=== PATIENT | male | born 1980 | race Caucasian/White ===

== ENCOUNTER → 2017-07-19 11:56 | Outpatient (CLI) | payer MEDICARE, OTHER, SELFPAY ==
[2017-07-19 13:39] LABS: Basophils # 0.1 K/mm3 (0-0.2); Basophils % 1.1 % (0.1-2.0); Eosinophils # 0.2 K/mm3 (0.0-0.4); Eosinophils % 3.4 % (0.1-12.0); Hemoglobin 14.1 g/dL (14.1-18.0); Lymphocytes # 1.6 K/mm3 (0.7-4.5); Lymphocytes % 33.5 K/mm3 (10-50); Mean Corpuscular HGB Conc 33.6 g/dL (31.8-35.4); Mean Corpuscular Hemoglobin 33.3 pg (27.0-31.2); Mean Platelet Volume 10.2 fl (7.4-10.4); Monocytes # 0.3 K/mm3 (0.1-1.0); Monocytes % 5.2 % (1.7-9.3); Neutrophils # 2.8 K/mm3 (1.8-7.8); Neutrophils % 56.8 % (37.0-80.0); Platelet Count 132 K/mm3 (142-424); Red Blood Count 4.24 M/mm3 (4.60-6.20); Red Cell Distribution Width 13.1 % (11.5-17.5); White Blood Count 4.8 K/mm3 (4.8-10.8)
[2017-07-19 14:38] LABS: Alanine Aminotransferase 26 U/L (12-78); Albumin Level 4.1 gm/dL (3.4-5.0); Albumin/Globulin Ratio 1.3 (1.1-1.8); Alkaline Phosphatase 119 U/L (46-116); Anion Gap 12.6 mEq/L (5-15); Aspartate Amino Transferase 28 U/L (15-37); Bilirubin,Total 0.3 mg/dL (0.2-1.0); Blood Urea Nitrogen 16 mg/dL (7-18); Calcium 9.3 mg/dL (8.5-10.1); Carbamazepine (Tegretol) 8.8 ug/ml (4.0-12.0); Carbon Dioxide 28 mmol/L (21.0-32.0); Chloride 104 mmol/L (98-107); Creatinine,Serum 0.81 mg/dL (0.70-1.30); Estimated Glomerular Filt Rate 107 ml/min (>60); GFR (African American) 129 ML/MIN (>60); Globulin 3.2 gm/dl (1.3-3.2); Glucose 84 mg/dL (74-106); Potassium 4.6 mmoL/L (3.5-5.1); Sodium 140 mmol/L (136-145); Total Protein,Serum 7.3 gm/dL (6.4-8.2)
[2017-07-19 14:45] LABS: Erythrocyte Sedimentation Rate 20 mm/hr (0-15)
[2017-07-22 21:11] LABS: Folate 4.5 ng/mL (>3.0); Vitamin B12 412 pg/mL (232-1245)
== END ==
PROVIDERS: Visit Provider Emergency Medicine
DX: R51 Headache (principal); R71.8 Other abnormality of red blood cells
CPT/HCPCS: 80053; 80156; 82607; 82746; 85025; 85651

== ENCOUNTER → 2017-10-05 09:59 | Outpatient (CLI) | payer MEDICARE, OTHER, SELFPAY ==
--- NOTE | 2017-10-05 10:02 | MR_ITS ---
MR head/brain wo/w con HISTORY: Severe headache with dizziness and history of seizures ITS.REASON: seizures, prior craniotomy ORDERING PHYSICIAN: Suzi Dockery MD PATIENT AGE: 37 years Comparison: 12/01/2013 TECHNIQUE: Standard multiplanar multiecho sequences are performed without and with gadolinium enhancement FINDINGS: No midline shift, mass effect, intracranial hemorrhage, or hydrocephalus. There has been a prior left frontal craniotomy with encephalomalacia change in the left frontal lobe some heterogeneous T1 and increased T2 signal in this area. No enhancement however is evident. There is some increased FLAIR signal in this region consistent with gliotic change. The remaining brain has an unremarkable appearance. The cerebellopontine angle, cerebellum, and brainstem are unremarkable. No abnormal enhancement. The hippocampal gyri are unremarkable in the temporal horns are symmetric. Unremarkable appearing pituitary gland and optic chiasm. No cerebellar ectopia. There is moderate mucosal thickening of the right maxillary sinus and minimal mucosal thickening of left maxillary sinus. No mastoid effusion IMPRESSION: 1. Encephalomalacia change in the left frontal lobe status post prior craniotomy at this area. No abnormal enhancement. 2. Otherwise negative MRI of the brain without and with contrast 3. Paranasal sinus disease
== END ==
PROVIDERS: Family Provider Emergency Medicine; PCP Emergency Medicine; Visit Provider Specialist
DX: R51 Headache (principal); R56.9 Unspecified convulsions; R42 Dizziness and giddiness; R63.6 Underweight; F41.9 Anxiety disorder, unspecified
CPT/HCPCS: 70553; A9576

== ENCOUNTER → 2017-10-11 08:53 | Outpatient (POV) | payer MEDICARE, OTHER, SELFPAY | PROVIDERS: Family Provider Emergency Medicine; PCP Emergency Medicine; Visit Provider Specialist | DX: R56.9 Unspecified convulsions (principal); R51 Headache; R42 Dizziness and giddiness; R63.6 Underweight; F41.9 Anxiety disorder, unspecified | CPT/HCPCS: 95819 ==

== ENCOUNTER → 2018-10-04 17:16 | Outpatient (CLI) | payer MEDICARE, OTHER, SELFPAY ==
[2018-10-04 17:57] LABS: Basophils # 0.1 K/mm3 (0-0.2); Eosinophils # 0.2 K/mm3 (0.0-0.4); Eosinophils % 2.9 % (0.1-12.0); Hematocrit 40.9 % (42.0-52.0); Hemoglobin 13.6 g/dL (14.1-18.0); Lymphocytes # 2.7 K/mm3 (0.7-4.5); Lymphocytes % 41.1 % (10-50); Mean Corpuscular HGB Conc 33.3 g/dL (31.8-35.4); Mean Corpuscular Hemoglobin 33.3 pg (27.0-31.2); Mean Platelet Volume 10.3 fl (7.4-10.4); Monocytes # 0.3 K/mm3 (0.1-1.0); Monocytes % 4.4 % (1.7-9.3); Neutrophils # 3.3 K/mm3 (1.8-7.8); Neutrophils % 50.6 % (37.0-80.0); Platelet Count 156 K/mm3 (142-424); Red Blood Count 4.09 M/mm3 (4.60-6.20); Red Cell Distribution Width 13.5 % (11.5-17.5); White Blood Count 6.5 K/mm3 (4.8-10.8)
[2018-10-04 18:05] LABS: Alanine Aminotransferase 25 U/L (12-78); Albumin/Globulin Ratio 1.2 (1.1-1.8); Alkaline Phosphatase 106 U/L (46-116); Anion Gap 13.4 mEq/L (5-15); Aspartate Amino Transferase 15 U/L (15-37); Bilirubin,Total 0.2 mg/dL (0.2-1.0); Blood Urea Nitrogen 15 mg/dL (7-18); Carbon Dioxide 28 mmol/L (21.0-32.0); Chloride 104 mmol/L (98-107); Creatinine,Serum 1.06 mg/dL (0.70-1.30); Estimated Glomerular Filt Rate 77 ml/min (>60); GFR (African American) 94 ML/MIN (>60); Globulin 3.3 gm/dl (1.3-3.2); Glucose 92 mg/dL (74-106); Potassium 4.4 mmoL/L (3.5-5.1); Sodium 141 mmol/L (136-145); Total Protein,Serum 7.3 gm/dL (6.4-8.2)
== END ==
PROVIDERS: Visit Provider Emergency Medicine
DX: G40.909 Epilepsy, unspecified, not intractable, without status epilepticus (principal)
CPT/HCPCS: 80053; 85025

== ENCOUNTER → 2019-02-02 13:12 | Outpatient (CLI) | payer MEDICARE, OTHER, SELFPAY ==
--- NOTE | 2019-02-02 13:16 | XR_ITS ---
PROCEDURE: XR LUMBAR SPINE MIN 4V CLINICAL INDICATION: back pain COMPARISON: No exams were available for comparison FINDINGS: There is normal alignment. No fracture or dislocation. No lytic or blastic change. There is mild spurring along the superior endplate of L4. Minimal facet sclerosis noted at L5-S1. The SI joints have an unremarkable appearance. IMPRESSION: Mild degenerative change, no acute finding Dictated by: Sage Balderas MD 02/02/2019 14:31 Electronically signed by Sage Balderas MD in [place] 02/02/2019 14:31
== END ==
PROVIDERS: PCP Emergency Medicine; Visit Provider Emergency Medicine
DX: M54.9 Dorsalgia, unspecified (principal)
CPT/HCPCS: 72110

== ENCOUNTER → 2019-02-15 07:49 | Outpatient (CLI) | payer MEDICARE, OTHER, SELFPAY ==
--- NOTE | 2019-02-15 07:50 | MR_ITS ---
PROCEDURE: MR LUMBAR SPINE WO CON CLINICAL INDICATION: back pain Low back pain, low back and left leg pain with numbness and tingling the COMPARISON: BRAINWW MR head/brain wo/w con from 10/05/2017 XR LUMBAR SPINE MIN 4V from 02/02/2019 TECHNIQUE: Standard multiplanar multiecho sequences are performed without contrast. 3-D MIP and myelographic images are also rendered and reviewed FINDINGS: There is normal alignment. The spinal cord ends at the L1 level. The disc spaces at L1-L2 and L2-L3 are unremarkable. There is mild facet and ligamentum hypertrophy at these levels without significant foraminal narrowing. L3-L4: There is mild degenerative disc disease with disc desiccation and minimal bulging disc along with facet and ligamentum hypertrophy with mild bilateral foraminal narrowing. L4-5: Mild concentric bulging disc. There is focal increased T2 signal involving the right foraminal aspect of the disc suggesting a small annular tear with focal disc protrusion in the right foraminal region. L5-S1: Mild concentric bulging disc slightly eccentric toward the left. There is facet and ligamentum hypertrophy with mild right and moderate left-sided foraminal narrowing. IMPRESSION: 1. L3-L4: There is mild degenerative disc disease with disc desiccation and minimal bulging disc along with facet and ligamentum hypertrophy with mild bilateral foraminal narrowing. 2. L4-5: Mild concentric bulging disc. There is focal increased T2 signal involving the right foraminal aspect of the disc suggesting a small annular tear with focal disc protrusion in the right foraminal region. 3. L5-S1: Mild concentric bulging disc slightly eccentric toward the left. There is facet and ligamentum hypertrophy with mild right and moderate left-sided foraminal narrowing. 4. No extruded herniated disc or canal stenosis Dictated by: Sage Balderas MD 02/16/2019 06:12 Electronically signed by Sage Balderas MD in [place] 02/16/2019 06:12
== END ==
PROVIDERS: PCP Emergency Medicine; Visit Provider Emergency Medicine
DX: M54.5 Low back pain (principal)
CPT/HCPCS: 72148; 76376

== ENCOUNTER 2019-02-15 09:30 | Outpatient (RCR) | payer MEDICARE, OTHER, SELFPAY ==
--- NOTE | 2019-02-09 13:50 | HMH.PTOPEV ---
PT Outpatient Evaluation Rehab PT Outpatient Evaluation Start: 02/09/19 11:23 Freq: Status: Active Protocol: Document 02/09/19 11:57 JOCELYN (Rec: 02/09/19 12:08 JOCELYN [id number]) Electronically Signed By Ishmael Carrizales, PT 02/09/19 11:57 Outpatient Therapy Subjective History Subjective History Patient is a 38 year old male presenting to outpatient PT with reports of LBP with LLE radicular symptoms starting approximately 2 months ago. Pt reports that he was bending over picking up a jug and felt a sharp pain in the low back that radiated down the back of his leg to the heel. Pt reports previous occurrence of similar symptoms approx 10 years ago. Comorbidities include hx of seizures, brain sx 2012 and hx of drug abuse. He is currently receiving treatment a [facility]. Chief Complaint Pain,Spasms,Stiff Symptom Type Ache,Sharp,Numbness,Tingling Symptoms Relieved By Activity Symptoms Aggravated By Sitting,Bending/Stooping, Lifting Prior Functional Limitations None Current Functional Limitations Lifting,Housework,Sitting, Recreation Activity,Bending/ Stooping Symptom Description Constant but Variable Level of pain today (0-10) 6 Pain scale - at its best (0-10) 6 Pain scale - at its worst (0-10) 9 Lumbopelvic Eval Posture Thoracic Spine Posture Standing Position Neutral Lumbar Spine Posture Standing Position Decreased Lordosis Assistive device Assistive Devices None / NA Gait Observation General Gait Pattern Observation Decrease Weight Bear (L) Palapation tenderness left Lumbar/Sacral Palpation Findings Tenderness Accessory Movement L4 left L5 left S1 left Range of Motion Lumbar Spine Active Flexion Range of 36 Motion (degrees) Lumbar Spine Active Extension Range of 11 Motion (degrees) Left Lumbar Spine Lateral Flexion Active 22 Range of Motion (degrees) Right Lumbar Spine Lateral Flexion 26 Active Range of Motion (degrees) Lumbar Spine ROM Limitations Soft Tissue Tightness,Bony Restriction Manual Muscle Test Bilateral Knee Extension Strength Grade 5 Normal Knee Flexion Strength G
== END 2019-02-15 09:35 | disposition home or self-care (01) ==
LOC: PT 09:30
PROVIDERS: PCP Emergency Medicine; Visit Provider Emergency Medicine
DX: M54.5 Low back pain (principal)
CPT/HCPCS: 97010; 97014; 97035; 97110; 97163; G0283

== ENCOUNTER → 2019-03-13 09:54 | Outpatient (POV) | payer MEDICARE, OTHER, SELFPAY ==
[2019-03-13 10:24] VITALS: BP 139/82; PULSE 88; RESP 18; O2SAT 99; BMI 17.9
--- NOTE | 2019-03-13 10:59 | HMH.PMCON ---
Assessment and Plan (1) Degenerative disc disease Current visit: Yes Status: Chronic Qualifiers: Spinal region: lumbar Qualified Code(s): M51.36 - Other intervertebral disc degeneration, lumbar region Category: Medical (2) Lumbar radiculopathy Current visit: Yes Status: Chronic Category: Medical Code(s): M54.16 - Radiculopathy, lumbar region - Assessment and plan all Dx Assessment and Plan for all problems:: We will set the patient up for an L4-L5 lumbar epidural steroid injection. Patient's tried and failed other modalities of treatment including physical therapy. He is continuing a home stretching program. He is not on any anticoagulation therapy. Patient is not a narcotic candidate given his history of abuse and his high ORT score. He is been instructed to call the office if he has any issues prior to his next appointment. Dr. Brar has reviewed this note and agrees with this plan of care. This note was dictated using voice recognition software and may contain errors or omissions HPI - Data of Consult Consult date: 03/13/19 Requesting Physician: Suly Dubon APRN Primary Care Provider: Demetris Taylor MD - Consult Narrative Reason for consult: Back pain History of present illness: Mr. Ojeda is a 38 year old male who presents today for consultation in regards to his low back pain. Patient has had back pain for several years. Patient states that he has done some physical therapy. He rates his pain a 5 out of 10. Long periods of walking lying and bending make it worse. Rest ice and elevation decrease it. Patient states he self medicates . He has been taking narcotic medications and he admits to overuse of these. Patient has addiction issues. Patient also has been in Suboxone clinics. 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 He has some degenerative changes noted on his MRI. He has pain in his low back radiating into his left leg. CC: Suly Dubon APRN [facility] History I have reviewed the patient's past medical history: Yes Medical History: Reports:: Anxiety, Coronary Artery Disease, Hiatal Hernia, Migraine, Seizures *Have you ever received a pneumonia vaccine?: Yes *Have you received a flu vaccine this season?: Yes Other Medical History: Reports: Other Other Surgeries: Yes: Hernia Repair, Other Amputation: No Fractures: No - *Social History Smoking Status: Current every day smoker Tobacco Type: cigarettes # Packs/Day (cigarettes): 1 Alcohol Intake: never Alcohol Intake Frequency:: other Substance Use Type: opiates *Occupational Status:: other Housing: house Household Members: family *Travel in the last 8 weeks: None - Psychiatric History Pschychiatric History:: Reports:: Anxiety Family Hx:: Cancer Review of Systems - Review of Systems ROS General: no recent weight change, no fever, no sleep disturbances Respiratory: no cough, no shortness of air, no recurring pulmonary infections Cardiovascular/Peripheral Vascular: No chest pain, No palpitations, no edema, no shortness of breath. Gastrointestinal: no new onset incontinence, normal bowel movements reported Genitourinary: no new onset incontinence Musculoskeletal: Back pain, left leg pain Psychiatric: normal mood/ affect Neurological: [denies new onset weakness in extremities], [denies new onset balance issues] Meds Home Medications Medication Instructions Recorded Confirmed Type Methocarbamol [Robaxin 500mg Tab] 500 mg PO BIDP PRN #30 tab 01/12/19 03/04/19 Rx buprenorphine 8 mg-naloxone 2 mg 1 each SUBLINGUAL BID #0 each 02/01/19 03/04/19 History sublingual film Diclofenac Sodium [Voltaren 100gm 2 g TOPICAL QID 03/04/19 03/04/19 History Topical Gel] carbamazepine 200 mg tablet 200 mg PO TID #90 tab 03/06/19 Rx Allergies Allergy/AdvReac Type Severity Reaction Status Date / Time promethazine [PROMETHAZINE] Allergy Mild Verified 02/01/19 14:27 Objective Vital sign
== END ==
PROVIDERS: PCP Emergency Medicine; Visit Provider Clinical Nurse Specialist Family Health
DX: M51.16 Intervertebral disc disorders with radiculopathy, lumbar region (principal); F41.9 Anxiety disorder, unspecified; I25.10 Atherosclerotic heart disease of native coronary artery without angina pectoris; G43.909 Migraine, unspecified, not intractable, without status migrainosus; R56.9 Unspecified convulsions; Z72.0 Tobacco use; Z79.899 Other long term (current) drug therapy; Z88.8 Allergy status to other drugs, medicaments and biological substances
CPT/HCPCS: 99202

== ENCOUNTER → 2019-04-17 13:49 | Outpatient (POV) | payer MEDICARE, OTHER, SELFPAY ==
--- NOTE | 2019-04-17 14:03 | HMH.PAINSOAP ---
[facility] Pain Management SOAP Note Subjective:: Patient is a 38-year-old white male who presents today for follow-up after lumbar epidural steroid injection. He is being treated for low back pain with lumbar radiculopathy symptoms. Patient says that most of his pain was in his low back area radiating into his left side. He says it was worse with urination. Following the injection, patient says he got approximately 95 to 100% relief until the last few days. He says his pain is slowly returning. He did discuss possible series of injections with Dr. Hernandez. He would like to undergo a series of 3 injections of lumbar epidural steroid injections. He is not on any anticoagulation therapy. He does rate his pain a 0 out of 10 when sitting and a 4 out of 10 when standing at this time. He says he was able to return work following his first lumbar epidural steroid injection. Patient says he has had this pain for many years, however, he says he was unable to afford to have any type of injective therapy in the past. Patient does admit that he did self medicate in the past for pain relief. He is currently taking anti-inflammatories and a home stretching program. Review of Systems General: No recent weight changes, no fever, no sleep disturbances Respiratory: No cough, no shortness of air, no recurring pulmonary infections Cardiovascular/peripheral vascular: No chest pain, no palpitations, no edema, no shortness of breath Gastrointestinal: No new onset incontinence, normal bowel movements reported Genitourinary: No new onset incontinence Musculoskeletal: Low back pain, left leg pain Psychiatric: Normal mood/affect Neurological: [Denies weakness in extremities], [denies balance issues] Objective:: Physical exam General: Alert and oriented x3, no acute distress, pleasant and cooperative, [on room air] Lungs: Respirations even and unlabored, symmetrical chest expansion Eyes: PERRL Musculoskeletal: Flexion and extension of lumbar spine somewhat guarded secondary to pain, deep tendon reflexes normal, strength in upper and lower extremities [5/5], [abnormal gait noted] Neurological: Speech clear, 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 We will plan to complete a series of injections. After his next epidural steroid injection, we will plan to perform 1 more injection for the patient to see if he gets long-term relief. He is not on any anticoagulation therapy. He will continue with a home stretching program and anti-inflammatories. Patient has done very well with the initial injection. Patient has been instructed to contact the clinic if he has any concerns before his next appointment. Dr. Brar has reviewed this note and agrees with this plan of care. This note was dictated using voice recognition software and make contain errors or omissions. [facility] History I have reviewed the patient's past medical history: Yes Medical History: Reports:: Anxiety, Coronary Artery Disease, Hiatal Hernia, Migraine, Seizures Denies:: Cancer, Diabetes Mellitus Type 2 *Have you ever received a pneumonia vaccine?: No *Have you received a flu vaccine this season?: No Other Medical History: Reports: Other Other Surgeries: Yes: Hernia Repair, Other Amputation: No Fractures: No - *Social History Smoking Status: Current every day smoker Tobacco Type: cigarettes # Packs/Day (cigarettes): 1 Alcohol Intake: never Alcohol Intake Frequency:: other Substance Use Type: opiates *Occupational Status:: other Housing: house Household Members: family *Travel in the last 8 weeks: None - Psychiatric History Pschychiatric History:: Reports:: Anxiety Family Hx:: Cancer
[2019-04-17 14:23] VITALS: BP 143/75; PULSE 82; RESP 18; O2SAT 98; BMI 18.6
== END ==
PROVIDERS: PCP Emergency Medicine; Visit Provider Clinical Nurse Specialist Family Health
DX: M51.16 Intervertebral disc disorders with radiculopathy, lumbar region (principal)
CPT/HCPCS: 99212

== ENCOUNTER 2019-09-08 10:18 | Day surgery (SDC) | payer MEDICARE, OTHER, SELFPAY ==
[2019-09-08 11:22] VITALS: BP 118/71; PULSE 72; RESP 18; TEMP 36.7; O2SAT 98; BMI 19.1
--- NOTE | 2019-09-08 11:38 | P.PCN_ITS ---
- Procedure Date: 09/08/19 Time: 11:38 Anesthesiologist:: Abundio Brar MD Complications:: None Pre-procedure Diagnosis:: Degenerative disease of lumbar spine with lumbar radiculopathy symptoms Post-procedure Diagnosis:: Same Indications for Procedure:: This patient is a pleasant 38-year-old white male who we are treating for low back pain with lumbar radiculopathy symptoms. Most of his pain is in the low back on the left side. He got great benefit from his last lumbar pleural steroid injection. His pain is now slowly starting to return. He was 80 to 90% better. Will do repeat lumbar epidural steroid injection under fluoroscopy today. Procedure Details:: Lumbar epidural Informed consent was obtained and the risk and benefits of the procedure was ex plained to the patient. The patient was taken to the procedure room. The patient was placed prone on the procedure table. The patient was prepped and draped in sterile fashion. C-arm fluoroscopy was used to view the lumbar spine. Skin and subcutaneous tissues were anesthetized using lidocaine. I placed an 18-gauge epidural needle and advanced into the L4-L5 interspace using fluoroscopic guidance and [id number] to air. After confirmation of needle placement in the epidural space with dye I injected 2 mL of lidocaine 1.5% with Depo-Medrol 80 mg. Patient tolerated the procedure well with no complications. Plan and Disposition:: We will follow-up with him in 2 weeks. Will reevaluate symptoms at that time.
[2019-09-08 11:43] VITALS: BP 125/82; BP 128/88; PULSE 77; PULSE 85; RESP 18; O2SAT 99
[2019-09-08 11:55] VITALS: BP 107/65; PULSE 54; RESP 18; O2SAT 98
== END 2019-09-08 11:55 | disposition home or self-care (01) ==
LOC: SC.PAINP 10:19
PROVIDERS: PCP Emergency Medicine; Visit Provider Anesthesiology
DX: M51.16 Intervertebral disc disorders with radiculopathy, lumbar region (principal); Z72.0 Tobacco use; F41.9 Anxiety disorder, unspecified; F32.9 Major depressive disorder, single episode, unspecified; R56.9 Unspecified convulsions; Z79.899 Other long term (current) drug therapy; I25.10 Atherosclerotic heart disease of native coronary artery without angina pectoris
CPT/HCPCS: 62323; J1040; Q9966

== ENCOUNTER → 2019-11-16 11:13 | Outpatient (POV) | payer MEDICARE, OTHER, SELFPAY ==
[2019-11-16 11:41] VITALS: BP 122/65; PULSE 65; RESP 18; O2SAT 98; BMI 18.4
--- NOTE | 2019-11-16 11:56 | HMH.PAINSOAP ---
[facility] Pain Management SOAP Note Subjective:: Patient is a 39-year-old white male who presents today for follow-up. He has been treated for chronic low back pain with lumbar radiculopathy symptoms. Patient did undergo a lumbar epidural steroid injection for which he says he got complete relief of numbness and tingling in his left lower extremity which was radiating into his toes. He says that he was bending forward and felt a stretching sensation in his low back area. He did follow-up with a chiropractor who told him that he has misalignment of his SI joints. Patient does have notable tenderness over bilateral SI joints today. He says the pain is worse with standing and walking. The pain radiates into his bilateral buttock hips and groin. He says the also radiates into bilateral knees and stops at the knee. Patient says this is a completely different type of pain than before. He does take diazepam that he says gave him relief of muscle spasms in his low back area that is prescribed per Dr. Taylor. He says this is also prescribed for seizure activity. He does rate his pain a 6 out of 10 today. Patient also reports to have neck pain that starts at the base of the neck radiating into his right shoulder area. He says this is new onset for him. Patient says his pain is worse in his low back at this time, however. He says he would like to undergo injective therapy for his low back and then discuss treatment for his neck. He is currently also undergoing physical therapy. Patient has tried ice and heat therapies. He has not currently on any type of anti-inflammatory. Review of Systems General: No recent weight changes, no fever, no sleep disturbances Respiratory: No cough, no shortness of air, no recurring pulmonary infections Cardiovascular/peripheral vascular: No chest pain, no palpitations, no edema, no shortness of breath Gastrointestinal: No new onset incontinence, normal bowel movements reported Genitourinary: No new onset incontinence Musculoskeletal: Neck pain, low back pain with radiation into bilateral buttock, groin, hips, and legs stopping at the knee Psychiatric: Normal mood/affect Neurological: [Denies weakness in extremities], [denies balance issues] Objective:: Physical exam General: Alert and oriented x3, no acute distress, pleasant and cooperative, [on room air] Lungs: Respirations even and unlabored, symmetrical chest expansion Eyes: PERRL Musculoskeletal: Flexion and extension of cervical and lumbar spine somewhat guarded secondary to pain, deep tendon reflexes normal, strength in upper and lower extremities [5/5], antalgic same gait noted, positive [place]'s test, positive Kim's test, positive distraction test Neurological: Speech clear, 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 He has a positive Mikal, Kim's, distraction test as well. We will schedule him for bilateral SI joint injections. We will also order patient diclofenac 75 mg 1 tablet p.o. twice daily. He has not been taking any type of anti-inflammatory. Patient and I did discuss his neck pain as well today. Once we treat his low back area we will then proceed with treatment to his neck area. He has pain in his neck with radiation into his right shoulder. 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 We will see him back in the clinic after his injections to reassess his symptoms. He has been instructed to contact clinic if he has any concerns before his next appointment. The patient and I specifically discussed risk factors for COVID19. These risks include, but are not limited to age greater than 60, heart or lung disease, diabetes, immunosuppression, and travel. We also discussed NSAIDs may worsen COVID19 infecti
== END ==
PROVIDERS: PCP Emergency Medicine; Visit Provider Clinical Nurse Specialist Family Health
DX: M51.16 Intervertebral disc disorders with radiculopathy, lumbar region (principal); M54.2 Cervicalgia; M46.1 Sacroiliitis, not elsewhere classified
CPT/HCPCS: 99212

== ENCOUNTER 2019-11-20 14:54 | Day surgery (SDC) | payer MEDICARE, OTHER, SELFPAY ==
[2019-11-20 15:06] VITALS: BP 136/66; PULSE 82; RESP 21; TEMP 36.8; O2SAT 99; BMI 19.1
[2019-11-20 15:44] VITALS: BP 112/74; PULSE 74
[2019-11-20 15:46] VITALS: BP 120/77; PULSE 78; RESP 18; O2SAT 98
--- NOTE | 2019-11-20 15:51 | HMH.PMPROC ---
- Procedure Date: 11/20/19 Time: 15:51 Anesthesiologist:: Suly Dubon APRN Complications:: None Pre-procedure Diagnosis:: Sacroiliitis Post-procedure Diagnosis:: Same Indications for Procedure:: Patient is a pleasant 39-year-old white male who presents today for bilateral SI joint injections. Patient did undergo lumbar epidural steroid injection which he got complete relief of the numbness and tingling in his left lower extremity with radiation to his toes however he developed notable tenderness over bilateral SI joints. His pain is worse standing. Pain radiates into his buttock hip and groin. Is a positive Mikal test Kim's test and SI joint compression test bilaterally. He is tried and failed ice and heat. 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 Patient was taken to the procedure room. Patient was placed prone on the procedure table. The left hip was prepped using ChloraPrep as a cleansing solution. The skin and subcutaneous tissues were anesthetized using lidocaine. Using fluoroscopic guidance I placed a 22-gauge spinal needle into the inferior aspect of the left SI joint. After this I injected 5 mL bupivacaine 0.25% and Depo-Medrol 40 mg into the left SI joint. This was then repeated on the right side. The patient tolerated the procedure well with no complication. Plan and Disposition:: We will follow up with the patient several weeks reassess his symptoms at that time he has been instructed to call the office if he has any issues prior to his next appointment. Dr. Brar has reviewed this note and agrees with this plan of care. This note was dictated using voice recognition software and may contain errors or omissions
[2019-11-20 15:54] VITALS: BP 128/69; PULSE 69; RESP 20; O2SAT 99
== END 2019-11-20 15:56 | disposition home or self-care (01) ==
LOC: SC.PAINP 14:56
PROVIDERS: PCP Emergency Medicine; Visit Provider Clinical Nurse Specialist Family Health
DX: M46.1 Sacroiliitis, not elsewhere classified (principal); F41.9 Anxiety disorder, unspecified; F32.9 Major depressive disorder, single episode, unspecified; Z72.0 Tobacco use; R56.9 Unspecified convulsions; Z88.8 Allergy status to other drugs, medicaments and biological substances
CPT/HCPCS: 27096; G0260; J1030; Q9966

== ENCOUNTER → 2019-11-30 11:13 | Outpatient (POV) | payer MEDICARE, OTHER, SELFPAY ==
[2019-11-30 11:34] VITALS: BP 118/62; PULSE 78; RESP 18; TEMP 36.8; O2SAT 98; BMI 19.6
--- NOTE | 2019-11-30 12:01 | HMH.PAINSOAP ---
[facility] Pain Management SOAP Note Subjective:: Patient is a 39-year-old white male who presents today for follow-up. He has been treated for chronic low back pain with lumbar radiculopathy symptoms. Patient has had a lumbar epidural steroid injection in the past as well as a recent SI injection. Patient says that the SI injection did not give him any relief. He currently complains of pain in his low back radiating into his buttock and leg. Patient says over the last few days, he is now losing sensation to his right leg. This is acute for him. Patient says that he can not feel his right leg at this time. He is feeling a popping sensation to his right low back area. This is also new onset for him. Patient says he is developing dizziness along with feeling like he is going to pass out . Patient does take diazepam for history of seizure activity. He says he is not interested in oral medications. He has tried physical therapy for greater than 6 weeks along with a continued home stretching program. He also uses ice and heat therapies. Patient feels something has changed with his pain since his previous MRI. Patient says I feel like I am going to end up paralyzed . Review of Systems General: No recent weight changes, no fever, no sleep disturbances Respiratory: No cough, no shortness of air, no recurring pulmonary infections Cardiovascular/peripheral vascular: No chest pain, no palpitations, no edema, no shortness of breath Gastrointestinal: No new onset incontinence, normal bowel movements reported Genitourinary: No new onset incontinence Musculoskeletal: Low back pain with radiation into right leg, loss of sensation to right leg Psychiatric: Normal mood/affect Neurological: [Denies weakness in extremities], [denies balance issues] Objective:: Physical exam General: Alert and oriented x3, no acute distress, pleasant and cooperative, [on room air] Lungs: Respirations even and unlabored, symmetrical chest expansion Eyes: PERRL Musculoskeletal: Flexion and extension of lumbar spine somewhat guarded secondary to pain, deep tendon reflexes normal, strength in upper and lower extremities [5/5], [abnormal gait noted] Neurological: Speech clear, 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 He did not get any relief from the SI injection. At this point, we will proceed with a MRI to determine if there have been any changes to the imaging from his previous MRI. We will see him back in the clinic afterwards to reassess his symptoms. Patient has been instructed to contact clinic if he has any concerns before his next appointment. The patient and I specifically discussed risk factors for COVID19. These risks include, but are not limited to age greater than 60, heart or lung disease, diabetes, immunosuppression, and travel. We also discussed NSAIDs may worsen COVID19 infection or symptoms. Patient should not use NSAIDs to treat COVID19 signs or symptoms. Patient was also informed that any type of corticosteroid of any form (oral or injection) will decrease the patient's immune system response and may increase the likelihood of COVID19 infection [address] symptoms[address] Brar has reviewed this note and agrees with this plan of care. This note was dictated using voice recognition software and make contain errors or omissions. [facility] History I have reviewed the patient's past medical history: Yes Medical History: Reports:: Anxiety, Coronary Artery Disease, Hiatal Hernia, Migraine, Seizures Denies:: Cancer, Diabetes Mellitus Type 1, Diabetes Mellitus Type 2, MRSA *Have you ever received a pneumonia vaccine?: Yes *Have you received a flu vaccine this season?: Yes Other Medical History: Reports: Other. Denies: Blood Transfusion Reaction Other Surgeries: Yes: Hernia Repa
== END ==
PROVIDERS: Visit Provider Clinical Nurse Specialist Family Health
DX: M51.16 Intervertebral disc disorders with radiculopathy, lumbar region (principal)
CPT/HCPCS: 99212

== ENCOUNTER → 2019-12-04 09:19 | Outpatient (CLI) | payer MEDICARE, OTHER, SELFPAY ==
--- NOTE | 2019-12-04 09:22 | MR_ITS ---
PROCEDURE: MR LUMBAR SPINE WO CON CLINICAL INDICATION: BACK PAIN LBP WITH RT LEG WEAKNESS. NUMBNESS AND TINGLING DOWN RT LEG. [id number]. NO INJURY. COMPARISON: MR MR LUMBAR SPINE WO CON from 02/15/2019 TECHNIQUE: Standard multiplanar multiecho sequences are performed without contrast. 3-D MIP and myelographic images are also rendered and reviewed FINDINGS: There is normal alignment. The spinal cord ends at the L1 level. L1-L2: Unremarkable. L2-L3: Unremarkable. L3-L4: Mild disc desiccation with minimal bulging disc along with mild facet and ligamentum hypertrophy with mild bilateral foraminal narrowing. Not significantly changed. L4-5: Minimal bulging disc. Mild disc desiccation. There is a moderate sized right paracentral disc herniation with inferior extrusion. This has developed since the previous exam. The extruded portion of the disc measures 2 cm in length and is impinging upon the right L5 nerve root. There remains an annular tear in the foraminal portion of the disc at this level with mild disc protrusion in the foraminal portion as before. The extruded portion of the disc extends inferiorly in the paracentral/medial foraminal region. L5-S1: Mild bulging disc which is slightly eccentric toward the left with left lateral recess and foraminal narrowing abutting the anterior aspect of the left S1 nerve root. There is moderate right foraminal narrowing at this level as well IMPRESSION: 1. Multilevel mild lumbar spondylosis as detailed above 2. At L4-5 there is a moderate sized right paracentral disc herniation with inferior extrusion. This has developed since the previous exam. The extruded portion of the disc measures 2 cm in length and is impinging upon the right L5 nerve root. There remains an annular tear in the foraminal portion of the disc at this level with mild disc protrusion in the foraminal portion as before. The extruded portion of the disc extends inferiorly in the paracentral/medial foraminal region. 3. At L5-S1, there is mild bulging disc which is slightly eccentric toward the left with left lateral recess and foraminal narrowing abutting the anterior aspect of the left S1 nerve root. There is moderate right foraminal narrowing at this level as well Dictated by: Sage Balderas MD 12/05/2019 11:28 Sage Balderas MD in [place] 12/05/2019 11:28
== END ==
PROVIDERS: PCP Emergency Medicine; Visit Provider Clinical Nurse Specialist Family Health
DX: M54.5 Low back pain (principal)
CPT/HCPCS: 72148; 76376

== ENCOUNTER → 2019-12-07 09:31 | Outpatient (POV) | payer MEDICARE, OTHER, SELFPAY ==
--- NOTE | 2019-12-07 10:08 | HMH.PAINSOAP ---
[facility] Pain Management SOAP Note Subjective:: Patient is a pleasant 39-year-old white male who presents today for follow-up. Patient did come into the clinic approximately a week ago for severe low back pain with radiation into right foot. Patient says that he was bending forward and felt a popping sensation to his right low back area. He started to develop some dizziness along with what he felt was going to cause him to pass out. He does take diazepam for history of seizures and gabapentin as prescribed by his primary care provider. The patient has had SI injections along with lumbar epidural steroid injections with no relief. He did have a previous MRI, however, he felt something had changed since that time. We did send him for a repeat MRI. He is here today to discuss the results. He does rate his pain a 5 out of 10 with sitting and a 10 out of 10 with any type of movement. Patient has had physical therapy in the past. He has seen Dr. Landry in the past as well for surgical intervention to his spine. Review of Systems General: No recent weight changes, no fever, no sleep disturbances Respiratory: No cough, no shortness of air, no recurring pulmonary infections Cardiovascular/peripheral vascular: No chest pain, no palpitations, no edema, no shortness of breath Gastrointestinal: No new onset incontinence, normal bowel movements reported Genitourinary: No new onset incontinence Musculoskeletal: Right low back pain radiating into right leg and foot with numbness and tingling Psychiatric: Normal mood/affect Neurological: [Denies weakness in extremities], [denies balance issues] Objective:: Physical exam General: Alert and oriented x3, no acute distress, pleasant and cooperative, [on room air] Lungs: Respirations even and unlabored, symmetrical chest expansion Eyes: PERRL Musculoskeletal: Flexion and extension of lumbar spine somewhat guarded secondary to pain, deep tendon reflexes normal, strength in upper and lower extremities [5/5], [abnormal gait noted] Neurological: Speech clear, 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 The report does note a moderate sized herniation. We will follow-up with him after his consult with neurosurgery to discuss a further plan of care. Patient has been instructed to contact the clinic if he has any concerns before his next appointment. The patient and I specifically discussed risk factors for COVID19. These risks include, but are not limited to age greater than 60, heart or lung disease, diabetes, immunosuppression, and travel. We also discussed NSAIDs may worsen COVID19 infection or symptoms. Patient should not use NSAIDs to treat COVID19 signs or symptoms. Patient was also informed that any type of corticosteroid of any form (oral or injection) will decrease the patient's immune system response and may increase the likelihood of COVID19 [address] Brar has reviewed this note and agrees with this plan of care. This note was dictated using voice recognition software and make contain errors or omissions. [facility] History I have reviewed the patient's past medical history: Yes Medical History: Reports:: Anxiety, Coronary Artery Disease, Hiatal Hernia, Migraine, Seizures Denies:: Cancer, Diabetes Mellitus Type 1, Diabetes Mellitus Type 2, MRSA *Have you ever received a pneumonia vaccine?: Yes *Have you received a flu vaccine this season?: Yes Other Medical History: Reports: Other. Denies: Blood Transfusion Reaction Other Surgeries: Yes: Hernia Repair, Other Amputation: No Fractures: No - *Social History Smoking Status: Current every day smoker Tobacco Type: cigarettes # Packs/Day (cigarettes): 1 Alcohol Intake: never Alcohol Intake Frequency:: other Substan
[2019-12-07 10:37] VITALS: BP 118/74; PULSE 79; RESP 18; TEMP 36.9; O2SAT 97; BMI 19.0
== END ==
PROVIDERS: PCP Emergency Medicine; Visit Provider Clinical Nurse Specialist Family Health
DX: M51.16 Intervertebral disc disorders with radiculopathy, lumbar region (principal)
CPT/HCPCS: 99212

== ENCOUNTER 2020-01-03 19:15 | Emergency (ER) | payer MEDICARE, OTHER, SELFPAY ==
--- NOTE | 2020-01-03 19:07 | ECG_ITS ---
APPROVED REPORT Exam: Resting ECG HR:96 bpm ECG Measurements Heart Rate 96 AXES ID 154 P 79 QRSd 84 QRS 91 QT 306 T 73 QTc 386 Conclusion Normal sinus rhythm Rightward axis Borderline ECG Electronically signed by : Galo Khan, 01/05/2020 18:16:11
[2020-01-03 19:16] VITALS: BP 124/82; PULSE 101; RESP 16; TEMP 37.5; O2SAT 97; BMI 19.0
--- NOTE | 2020-01-03 19:36 | XR_ITS ---
PROCEDURE: XR CHEST 2V CLINICAL HISTORY: chills, productive cough Shortness of air, cough, current smoker COMPARISON: CR CXR2 CHEST-AP VIEW ONLY from 12/01/2013 CR CXR2V XR chest 2V from 02/23/2018 FINDINGS: The cardiomediastinal silhouette and pulmonary vascularity are within normal limits. Hyperinflation with attenuation of the peripheral pulmonary vessels consistent with COPD. No acute bony abnormalities. IMPRESSION: COPD. No change with no acute finding. Dictated by: Sage Balderas MD 01/04/2020 05:33 Sage Balderas MD in [place] 01/04/2020 05:33
[2020-01-03 19:47] LABS: Basophils # 0.1 K/mm3 (0-0.2); Basophils % 0.5 % (0.1-2.0); Eosinophils # 0.2 K/mm3 (0.0-0.4); Eosinophils % 1.8 % (0.1-12.0); Hemoglobin 12.1 g/dL (14.1-18.0); Lymphocytes # 1.7 K/mm3 (0.7-4.5); Lymphocytes % 18.1 % (10-50); Mean Corpuscular HGB Conc 31.9 g/dL (31.8-35.4); Mean Corpuscular Hemoglobin 32.7 pg (27.0-31.2); Mean Corpuscular Volume 102.3 fl (80-94); Mean Platelet Volume 10.5 fl (7.4-10.4); Monocytes # 0.5 K/mm3 (0.1-1.0); Monocytes % 5.2 % (1.7-9.3); Neutrophils # 6.9 K/mm3 (1.8-7.8); Neutrophils % 74.3 % (37.0-80.0); Platelet Count 121 K/mm3 (142-424); Red Blood Count 3.72 M/mm3 (4.60-6.20); Red Cell Distribution Width 12.8 % (11.5-17.5); White Blood Count 9.3 K/mm3 (4.8-10.8)
[2020-01-03 19:51] LABS: Chloride 100 mmol/L (98-107); Potassium 4.1 mmoL/L (3.5-5.1); Sodium 137 mmol/L (136-145)
[2020-01-03 19:54] LABS: Alanine Aminotransferase 18 U/L (12-78); Albumin Level 4.2 g/dl (3.5-5.0); Albumin/Globulin Ratio 1.4 (1.1-1.8); Alkaline Phosphatase 82 U/L (38-126); Anion Gap 11.1 mEq/L (5-15); Aspartate Amino Transferase 28 U/L (17-59); Bilirubin,Total 0.5 mg/dl (0.2-1.3); Blood Urea Nitrogen 10 mg/dl (9-20); Calcium 9.2 mg/dl (8.4-10.2); Carbon Dioxide 30 mmol/L (22.0-30.0); Creatinine Clearance Estimated 109 mL/min (50-200); Estimated Glomerular Filt Rate 107 ml/min (>60); GFR (African American) 129 ML/MIN (>60); Globulin 3.1 g/dL (1.3-3.2); Glucose 128 mg/dl (74-100); Lactic Acid 0.9 mmol/L (0.7-2.1); Total Protein,Serum 7.3 g/dl (6.3-8.2)
--- NOTE | 2020-01-03 20:08 | HMH.EDURI ---
ED Disposition Clinical Impression: Bronchitis, Pleurisy Disposition: Home, Self-Care Condition on Discharge: Good Instructions: DI for Acute Bronchitis Additional Instructions: fluids and see pcp for follow up Prescriptions: levoFLOXacin [Levaquin 500mg tab] 500 mg PO DAILY #7 tab Transmission Status: Pending to [facility] predniSONE [Prednisone 20mg Tab] 20 mg PO BID #10 tab Transmission Status: Pending to [facility] Benzonatate [Tessalon Perle 100mg Cap] 100 mg PO TID #30 cap Transmission Status: Pending to [facility] Referrals: Demetris Talyor MD [Primary Care Provider] - - Critical Care Critical Care Time: No Attestation: On 01/03/20, the high probability of a clinically significant, sudden or life threatening deterioration of the following system(s) required my full and direct attention, intervention and personal management. The time I documented below is in addition to time spent performing reported procedures but includes the following listed in this critical care notation. Medical Decision Making - Medical Records Medical records reviewed: Yes: I reviewed the patient's medical records. - Jh Inquiry Pt receiving controlled substance: No Vital Signs: 01/03/20 19:16 01/03/20 20:39 Temperature 99.5 F Temperature Source Oral Pulse Rate [Left Radial] 101 H 81 Respiratory Rate 16 18 Blood Pressure [Right Arm] 124/82 112/68 Blood Pressure Mean [Right Arm] 96 82 Blood Pressure Source [Right Arm] Automatic Cuff Blood Pressure Position [Right Arm] Sitting 02 Sat by Pulse Oximetry 97 94 L Oxygen Delivery Method Room Air Room Air - Lab Data Lab results reviewed: Yes: I reviewed the patient's lab results. Lab Results 01/03/20 19:36: WBC 9.3, RBC 3.72 L, Hgb 12.1 L, Hct 38.0 L, MCV 102.3 H, MCH 32.7 H, MCHC 31.9, RDW 12.8, Plt Count 121 L, MPV 10.5 H, Neut % (Auto) 74.3, Lymph % (Auto) 18.1, [place] % (Auto) 5.2, Eos % (Auto) 1.8, Baso % (Auto) 0.5, Neut # (Auto) 6.9, Lymph # (Auto) 1.7, [place] # (Auto) 0.5, Eos # (Auto) 0.2, Baso # (Auto) 0.1 01/03/20 19:36: Sodium 137, Potassium 4.1, Chloride 100, Carbon Dioxide 30, Anion Gap 11.1, BUN 10, Creatinine 0.80, Estimated Creat Clear 109, Estimated GFR 107, Est GFR ( Amer) 129, Glucose 128 H, Calcium 9.2, Total Bilirubin 0.5, AST 28, ALT 18, Alkaline Phosphatase 82, Total Protein 7.3, Albumin 4.2, Globulin 3.1, Albumin/Globulin Ratio 1.4 01/03/20 19:36: Lactate 0.9 01/03/20 19:36: Troponin I < 0.01 Result diagrams: 01/03/20 19:36 01/03/20 19:36 Orders (Tests/Meds): ED MEDICATIONS Discontinued Medications Generic Name Dose Route Start Last Admin Trade Name Freq PRN Reason Stop Dose Admin Ketorolac Tromethamine 30 mg 01/03/20 20:35 01/03/20 20:37 Ketorolac 30mg/Ml Vial IV 01/03/20 20:36 30 mg ONCE ONE Administration Methylprednisolone Sodium Succinate 125 mg 01/03/20 20:35 01/03/20 20:36 Methylprednisolone Sod Succ 125mg Vial IV 01/03/20 20:36 125 mg ONCE ONE Administration ORDERS Category Date Time Status XR chest 2V Stat Exams 01/03/20 19:36 Taken Covid-19 IgG/IgM ([facility]) Stat Lab 01/03/20 20:34 Ordered Covid-19 Nasal PCR Sendout [place] Stat Lab 01/03/20 20:34 Ordered Flu A&B Antigens, Rapid [Rapid Influenza A&B Antigens] Lab 01/03/20 20:34 Ordered Stat Troponin I Q3H Lab 01/03/20 23:00 Ordered Troponin I Q3H Lab 01/04/20 02:00 Ordered Blood Culture Stat Micro 01/03/20 19:36 Received Sputum Culture & Gram Stain Stat Micro 01/03/20 20:56 Ordered - Radiology Data #1 Image(s): Chest Image Reviewed: Yes I reviewed the patient's radiology image Preliminary Findings: Normal/NAD - ECG Data Tracing #1 Normal Sinus Rhythm: Yes Ischemic changes: non-specific ST-T wave changes - RIMA Score for Non-Stemi Age of Patient: 40-49 years old Heart Rate: 90-109 bpm Systolic Blood Pressure: 120-139 mmhg Serum Creatin
[2020-01-03 20:33] LABS: Troponin I < 0.01 ng/ml (0.00-0.034)
[2020-01-03 20:39] VITALS: BP 112/68; PULSE 81; RESP 18; O2SAT 94
--- NOTE | 2020-01-03 21:09 | PC.NURSE ---
called lab for flu results
[2020-01-03 21:15] VITALS: BP 108/84; PULSE 82; RESP 16; O2SAT 94
[2020-01-03 21:21] VITALS: BP 108/84; PULSE 82; RESP 16; TEMP 37.2; O2SAT 95
[2020-01-03 21:40] LABS: Coronavirus 19 IgG Antibody Negative (Negative); Coronavirus 19 IgM Antibody Negative (Negative)
[2020-01-05 14:11] LABS: Covid-19 Nasal PCR Sendout Lex NOT DETECTED
== END 2020-01-03 21:43 | disposition home or self-care (01) ==
PROVIDERS: Emergency Provider Emergency Medicine; PCP Emergency Medicine
DX: Z20.828 Contact with and (suspected) exposure to other viral communicable diseases (principal); J20.9 Acute bronchitis, unspecified; R09.1 Pleurisy; G43.709 Chronic migraine without aura, not intractable, without status migrainosus; G40.909 Epilepsy, unspecified, not intractable, without status epilepticus; I25.10 Atherosclerotic heart disease of native coronary artery without angina pectoris; F17.210 Nicotine dependence, cigarettes, uncomplicated; Z79.899 Other long term (current) drug therapy
CPT/HCPCS: 71046; 80053; 83605; 84484; 85025; 86328; 87040; 87070; 87077; 87186; 87205; 87275; 87276; 93005; 96374; 96375; 99284; U0004

== ENCOUNTER 2020-04-25 18:21 | Emergency (ER) | payer MEDICARE, OTHER, SELFPAY ==
[2020-04-25 18:22] VITALS: BP 148/88; PULSE 73; RESP 18; TEMP 36.6; O2SAT 97; BMI 17.9
[2020-04-25 18:24] VITALS: BMI 17.9
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
--- NOTE | 2020-04-25 18:32 | PC.NURSE ---
Pt's family running back and forth from room to waiting room.
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
[2020-04-25 18:33] VITALS: BP 121/75; PULSE 70; O2SAT 97
[2020-04-25 20:19] VITALS: BP 152/74; PULSE 73; RESP 16; TEMP 36.7; O2SAT 98
[2020-04-25 20:22] VITALS: BP 105/70; PULSE 80; RESP 17; O2SAT 95
== END 2020-04-25 20:23 | disposition home or self-care (01) ==
PROVIDERS: Emergency Provider Emergency Medicine; PCP Emergency Medicine
DX: S00.83XA Contusion of other part of head, initial encounter (principal); S16.1XXA Strain of muscle, fascia and tendon at neck level, initial encounter; Y04.2XXA Assault by strike against or bumped into by another person, initial encounter; Y92.414 Local residential or business street as the place of occurrence of the external cause; R56.9 Unspecified convulsions; F41.9 Anxiety disorder, unspecified; I25.10 Atherosclerotic heart disease of native coronary artery without angina pectoris; F17.210 Nicotine dependence, cigarettes, uncomplicated; Z88.8 Allergy status to other drugs, medicaments and biological substances
CPT/HCPCS: 70450; 70486; 72125; 99282

== ENCOUNTER 2020-05-28 15:52 | Emergency (ER) | payer MEDICARE, OTHER, SELFPAY ==
--- NOTE | 2020-05-28 15:47 | ECG_ITS ---
APPROVED REPORT Exam: Resting ECG HR:86 bpm ECG Measurements Heart Rate 86 AXES MD 166 P 85 QRSd 86 QRS 88 QT 342 T 73 QTc 409 Conclusion Normal sinus rhythm Biatrial enlargement Abnormal ECG Electronically signed by : Rajat Francis, 05/29/2020 13:22:02
[2020-05-28 15:52] VITALS: BMI 17.8
--- NOTE | 2020-05-28 15:52 | XR_ITS ---
PROCEDURE: XR CHEST 2V CLINICAL HISTORY: chest pain COMPARISON: January 03, 2020 FINDINGS: No focal consolidation, pleural effusions or pneumothorax. The cardiac size and central pulmonary vasculature within normal limits. Visualized osseous structures are unremarkable. IMPRESSION: No acute cardiopulmonary process. Dictated by: Eileen Ruiz 05/28/2020 16:47 Eileen Ruiz in [place] 05/28/2020 16:47
[2020-05-28 15:53] VITALS: BP 110/82; PULSE 78; RESP 14; TEMP 36.5; O2SAT 98; BMI 17.8
--- NOTE | 2020-05-28 15:58 | HMH.EDGENADL ---
ED Disposition Clinical Impression: Neck pain Disposition: Home, Self-Care Condition on Discharge: Fair Instructions: DI for Neck Pain Additional Instructions: Please take [id number] ibuprofen and/or Tylenol as needed for your neck pain. Follow-up with your primary care physician in about 3 to 7 days if your symptoms do not improve. Referrals: PCP,No [Non-Staff] - - Critical Care Critical Care Time: No Attestation: On , the high probability of a clinically significant, sudden or life threatening deterioration of the following system(s) required my full and direct attention, intervention and personal management. The time I documented below is in addition to time spent performing reported procedures but includes the following listed in this critical care notation. Medical Decision Making - Jh Inquiry Pt receiving controlled substance: No Vital Signs: 05/28/20 15:53 Temperature 97.7 F Temperature Source Oral Pulse Rate [Right Brachial] 78 Respiratory Rate 14 Blood Pressure [Right Arm] 110/82 Blood Pressure Mean [Right Arm] 91 Blood Pressure Source [Right Arm] Automatic Cuff Blood Pressure Position [Right Arm] Supine 02 Sat by Pulse Oximetry 98 Oxygen Delivery Method Room Air - Lab Data Lab Results 05/28/20 16:00: WBC 5.8, RBC 3.94 L, Hgb 12.8 L, Hct 38.1 L, MCV 96.5 H, MCH 32.5 H, MCHC 33.7, RDW 14.4, Plt Count 135 L, MPV 9.7, Neut % (Auto) 44.4, Lymph % (Auto) 44.6, [place] % (Auto) 4.8, Eos % (Auto) 4.8, Baso % (Auto) 1.4, Neut # (Auto) 2.6, Lymph # (Auto) 2.6, [place] # (Auto) 0.3, Eos # (Auto) 0.3, Baso # (Auto) 0.1 05/28/20 16:00: Sodium 137, Potassium 4.1, Chloride 102, Carbon Dioxide 30, Anion Gap 9.1, BUN 15, Creatinine 0.80, Estimated Creat Clear 105, Estimated GFR 107, Est GFR ( Amer) 129, Glucose 91, Calcium 9.4, Troponin I < 0.01 Result diagrams: 05/28/20 16:00 05/28/20 16:00 Orders (Tests/Meds): ED MEDICATIONS Discontinued Medications Generic Name Dose Route Start Last Admin Trade Name [facility] PRN Reason Stop Dose Admin Ketorolac Tromethamine 30 mg 05/28/20 15:59 Ketorolac 30mg/Ml Vial IV 05/28/20 16:00 ONCE ONE Ketorolac Tromethamine 60 mg 05/28/20 16:00 05/28/20 16:05 Ketorolac 60mg/2ml Vial IM 05/28/20 16:01 60 mg ONCE ONE Administration Orphenadrine Citrate 60 mg 05/28/20 15:59 05/28/20 16:06 Orphenadrine Citrate 60mg/2ml Vial IM 05/28/20 16:00 60 mg ONCE ONE Administration ORDERS Category Date Time Status Troponin I Q3H Lab 05/28/20 19:00 Ordered Troponin I Q3H Lab 05/28/20 22:00 Ordered - ECG Data Tracing #1 Formed at 1548 on May 28, 2020 shows a normal sinus rhythm with a rate of 86 bpm there is no acute ischemia. There are some mild early repolarization. No acute disease. Normal Sinus Rhythm: Yes ECG compared to prior tracings: there are no significant changes (December 2019) Medical Decision Narrative: There is a department complaining of neck pain that radiated to both upper extremities. The patient is currently on Suboxone for history of substance abuse. On physical examination the patient appears somewhat cachectic but in no distress. His upper extremities are neurovascularly intact. There is no evidence of meningitis. The patient is afebrile. He has pain with movement of the neck but he has no meningismus. The patient's EKG did not show any ischemic changes. The patient's troponin is undetectable. His chest x-ray is unremarkable. The remainder of the patient's work-up shows that he has a mild anemia which does not require further work-up or treatment in the emergency department. I feel that the patient can be safely discharged home in stable condition. The patient's work-up did not reveal any evidence for life-threatening or dangerous conditions. General Adult HPI - General Chief complaint: Neck Pain/Injury Stated complaint: Neck pain Time Seen by Provider: 05/28/20 16:00 Mode of Arri
[2020-05-28 16:20] LABS: Chloride 102 mmol/L (98-107); Potassium 4.1 mmoL/L (3.5-5.1); Sodium 137 mmol/L (136-145)
[2020-05-28 16:23] LABS: Anion Gap 9.1 mEq/L (5-15); Blood Urea Nitrogen 15 mg/dl (9-20); Calcium 9.4 mg/dl (8.4-10.2); Carbon Dioxide 30 mmol/L (22.0-30.0); Creatinine Clearance Estimated 105 mL/min (50-200); Estimated Glomerular Filt Rate 107 ml/min (>60); GFR (African American) 129 ML/MIN (>60); Glucose 91 mg/dl (74-100)
[2020-05-28 16:36] LABS: Troponin I < 0.01 ng/ml (0.00-0.034)
[2020-05-28 16:39] LABS: Basophils # 0.1 K/mm3 (0-0.2); Basophils % 1.4 % (0.1-2.0); Eosinophils # 0.3 K/mm3 (0.0-0.4); Eosinophils % 4.8 % (0.1-12.0); Hematocrit 38.1 % (42.0-52.0); Hemoglobin 12.8 g/dL (14.1-18.0); Lymphocytes # 2.6 K/mm3 (0.7-4.5); Lymphocytes % 44.6 % (10-50); Mean Corpuscular HGB Conc 33.7 g/dL (31.8-35.4); Mean Corpuscular Hemoglobin 32.5 pg (27.0-31.2); Mean Corpuscular Volume 96.5 fl (80-94); Mean Platelet Volume 9.7 fl (7.4-10.4); Monocytes # 0.3 K/mm3 (0.1-1.0); Monocytes % 4.8 % (1.7-9.3); Neutrophils # 2.6 K/mm3 (1.8-7.8); Neutrophils % 44.4 % (37.0-80.0); Platelet Count 135 K/mm3 (142-424); Red Blood Count 3.94 M/mm3 (4.60-6.20); Red Cell Distribution Width 14.4 % (11.5-17.5); White Blood Count 5.8 K/mm3 (4.8-10.8)
[2020-05-28 17:16] VITALS: BP 126/74; PULSE 55; RESP 16; TEMP 36.6; O2SAT 95
[2020-05-28 17:30] VITALS: BP 126/74; PULSE 55; RESP 16; TEMP 36.6; O2SAT 95
== END 2020-05-28 17:30 | disposition home or self-care (01) ==
PROVIDERS: Emergency Provider Emergency Medicine; PCP Emergency Medicine
DX: M54.2 Cervicalgia (principal); F19.11 Other psychoactive substance abuse, in remission; R56.9 Unspecified convulsions; F41.9 Anxiety disorder, unspecified; I25.10 Atherosclerotic heart disease of native coronary artery without angina pectoris; F17.210 Nicotine dependence, cigarettes, uncomplicated; Z79.899 Other long term (current) drug therapy
CPT/HCPCS: 71046; 80048; 84484; 85025; 93005; 96372; 99282

== ENCOUNTER → 2020-12-03 17:57 | Outpatient (CLI) | payer MEDICARE, OTHER, SELFPAY | PROVIDERS: PCP Emergency Medicine; Visit Provider Nurse Practitioner | DX: Z20.822 Contact with and (suspected) exposure to COVID-19 (principal) | CPT/HCPCS: C9803; U0003; U0005 ==

== ENCOUNTER → 2021-01-29 18:07 | Outpatient (CLI) | payer MEDICARE, OTHER, SELFPAY ==
[2021-01-29 18:43] LABS: Basophils # 0.1 K/mm3 (0-0.2); Basophils % 1.4 % (0.1-2.0); Eosinophils # 0.3 K/mm3 (0.0-0.4); Eosinophils % 4.1 % (0.1-12.0); Hematocrit 43.6 % (42.0-52.0); Hemoglobin 15.1 g/dL (14.1-18.0); Lymphocytes % 31.7 % (10-50); Mean Corpuscular HGB Conc 34.6 g/dL (31.8-35.4); Mean Corpuscular Hemoglobin 33.4 pg (27.0-31.2); Mean Corpuscular Volume 96.6 fl (80-94); Mean Platelet Volume 11.2 fl (7.4-10.4); Monocytes # 0.3 K/mm3 (0.1-1.0); Monocytes % 4.7 % (1.7-9.3); Neutrophils # 3.7 K/mm3 (1.8-7.8); Neutrophils % 58.1 % (37.0-80.0); Platelet Count 150 K/mm3 (142-424); Red Blood Count 4.51 M/mm3 (4.60-6.20); White Blood Count 6.4 K/mm3 (4.8-10.8)
[2021-01-29 19:06] LABS: Alanine Aminotransferase 14 U/L (12-78); Albumin Level 4.7 g/dl (3.5-5.0); Albumin/Globulin Ratio 1.6 (1.1-1.8); Alkaline Phosphatase 104 U/L (38-126); Aspartate Amino Transferase 35 U/L (17-59); Bilirubin,Total 0.3 mg/dl (0.2-1.3); Blood Urea Nitrogen 12 mg/dl (9-20); Calcium 10.1 mg/dl (8.4-10.2); Carbamazepine (Tegretol) 4.6 ug/ml (4.0-12.0); Carbon Dioxide 31 mmol/L (22.0-30.0); Chloride 100 mmol/L (98-107); Estimated Glomerular Filt Rate 106 ml/min (>60); GFR (African American) 128 ML/MIN (>60); Globulin 2.9 g/dL (1.3-3.2); Glucose 74 mg/dl (74-100); Sodium 138 mmol/L (136-145); Total Protein,Serum 7.6 g/dl (6.3-8.2)
[2021-01-29 19:12] LABS: Erythrocyte Sedimentation Rate 17 mm/hr (0-15)
== END ==
PROVIDERS: Visit Provider Emergency Medicine
DX: R56.9 Unspecified convulsions (principal); Z51.81 Encounter for therapeutic drug level monitoring
CPT/HCPCS: 80053; 80156; 85025; 85651

== ENCOUNTER → 2021-02-17 08:56 | Outpatient (CLI) | payer MEDICARE, OTHER, SELFPAY ==
--- NOTE | 2021-02-17 08:56 | MR_ITS ---
PROCEDURE INFORMATION: Exam: MR Head Without and With Contrast Exam date and time: 02/17/2021 8:56 AM Age: 40 years old Clinical indication: Pain; Headache; Prior surgery; Surgery date: 6+ months; Additional info: Seizures. Dizziness. Prior HX brain abcess x8yrs ago. Headache and blurred vision x1.5months. 12ml prohance given. Lot: [id number] exp: Nov [address] 04-25-20 prior MR 10-05-17. TECHNIQUE: Imaging protocol: MR of the head without and with intravenous contrast. Contrast material: PROHANCE; Contrast volume: 12 ml; Contrast route: IV; COMPARISON: CT HEAD/BRAIN WO CON 04/25/2020 6:47 PM FINDINGS: Major vascular flow voids at the skull base are preserved. No extra-axial fluid collection. No hydrocephalus. No midline shift or intracranial mass effect. There is encephalomalacia at the inferior aspect of the left frontal lobe. No cerebral edema. No diffusion restriction. No pathologic intracranial enhancement. Moderate right maxillary sinus disease. Mild scattered additional paranasal sinus disease. No significant mastoid effusion. IMPRESSION: No acute intracranial abnormality.
== END ==
PROVIDERS: PCP Emergency Medicine; Visit Provider Emergency Medicine
DX: R56.9 Unspecified convulsions (principal)
CPT/HCPCS: 70553; A9576

== ENCOUNTER 2021-03-13 13:03 | Outpatient (RCR) | payer MEDICARE, OTHER, SELFPAY ==
--- NOTE | 2021-03-13 14:09 | HMH.PTOPEV ---
PT Outpatient Evaluation Rehab PT Outpatient Evaluation Start: 03/13/21 13:12 Freq: Status: Active Protocol: Document 03/13/21 13:50 PHORNE (Rec: 03/13/21 14:09 PHORNE [id number]) Electronically Signed By Torin Collier, PT 03/13/21 13:50 Outpatient Therapy Subjective History Subjective History Pt is 41 yowm who presents with reports of increased dizziness/vertigo x ~ 2 mos with insidious onset. He reports symptoms are constantly there just a little bit, but a lot worse if I look up or lay down. He reports vertigo onset is immediate with certain positions and lasts ~ 10 sec. He has significant hx of cranial issues with craniotomy due to substance abuse related brain abcess in 2010. He also has hx of seizures for which he is medicated. MRI of Brain shows L frontal encephalomalacia and R maxillary sinus disease. He also reports intermittent tinnitus in the L ear. Chief Complaint Other Symptoms Relieved By Rest/Positioning Prior Functional Limitations None Current Functional Limitations None Symptom Description Intermittent,Activity Dependent Balance Eval Chief Complaint vertigo Yes Activity at onset looking up or laying down Prior Functional Limitations Prior Functional [place] Level Currently no nystagmus noted with fransisco-hallpike or horizontal roll testing, but symptoms are significantly increased with fransisco-hallpike to the R side. Nystagmus Nystagmus Presence None Timed Up and Go Test 1. Is the Timed Up and Go test result > no or = to 12 seconds? 3. Is the Timed Up and Go Test result < yes 12 seconds? Oculomotor Gaze Oculomotor Gaze Nml: Vergence Smooth Pursuit Saccades VOR Cancellation Cover/Uncover Abn: Cross Cover [place] Feet Together/Eyes open/Stable Surface pass Feet Together/
== END 2021-03-13 13:05 | disposition home or self-care (01) ==
LOC: PT 13:03
PROVIDERS: PCP Emergency Medicine; Visit Provider Specialist
DX: R42 Dizziness and giddiness (principal); G40.909 Epilepsy, unspecified, not intractable, without status epilepticus
CPT/HCPCS: 97140; 97163

== ENCOUNTER → 2021-03-30 12:35 | Outpatient (CLI) | payer MEDICARE, OTHER, SELFPAY | PROVIDERS: Visit Provider Nurse Practitioner | DX: Z20.822 Contact with and (suspected) exposure to COVID-19 (principal) | CPT/HCPCS: C9803; U0003; U0005 ==

== ENCOUNTER 2022-06-16 09:24 | Emergency (ER) | payer MEDICARE, OTHER, SELFPAY ==
[2022-06-16 09:24] VITALS: BP 104/68; PULSE 77; RESP 17; TEMP 36.8; O2SAT 100; BMI 20.3
--- NOTE | 2022-06-16 09:59 | CT_ITS ---
FINAL REPORT CLINICAL HISTORY: headache COMPARISON: 04/25/2020 FINDINGS: Axial images of the head were obtained without contrast. Coronal reformatted images were also obtained.This study was performed with techniques to keep radiation doses as low as reasonably achievable (ALARA). Individualized dose reduction techniques using automated exposure control or adjustment of mA and/or kV according to the patient''s size were employed. There is no evidence of intracranial hemorrhage or mass. The ventricular size is within normal limits. There is no evidence of shift of the midline structures. There are postoperative changes from left frontal craniotomy. There is left frontal encephalomalacia, stable. No abnormal extra axial fluid collection is identified. No skull abnormality is seen on the bone window images. IMPRESSION: No acute intracranial abnormality. Stable postoperative changes. Reviewed, Interpreted and Dictated by Mina Torres III, MD Transcribed by Lakisha Reeves Authenticated and [facility]
--- NOTE | 2022-06-16 10:00 | HMH.EDHA ---
Discharge Plan Disposition Patient Disposition: Home, Self-Care Condition: Good Prescriptions Prescriptions: No Action methadone 5 mg Tablet 5 mg PO DAILY levetiracetam [Keppra] 500 mg tablet 500 mg PO BID diazepam 5 mg tablet 5 mg PO BID Referrals Follow up/Referrals: Demetris Taylor MD [Primary Care Provider] - See instructions Suzi Dockery MD [Staff Physician] - See instructions Activity Restrictions/Add. Instructions Additional Instructions/Restrictions: Your headache is not from a stroke or bleed in the brain. This could be a tension headache please follow-up with your primary care doctor Dr. Taylor and I refer you to Dr. Dockery the neurologist. Clinical Impressions Clinical Impression: Headache Discharge ED Provider: Judit Dee Headache HPI General Chief Complaint: Headache Stated Complaint: burning sensation on head, sharp pain Time Seen by Provider: 06/16/22 09:48 Mode of Arrival: Ambulatory Source of Information: Patient Limitations: No Limitations Description of Symptoms (Recalled from ER Triage Doc. by RN): pt to ED after an episode at work yesterday where his brain felt really hot all of the sudden accompanied by a small sharp stabbing pain to his left posterior head. pt reports that the episode lasted a couple of minutes but that since then he had had a dull headache. History of Present Illness HPI Narrative: Patient is a 41-year male who is here secondary to headache. Patient stated that he was at work felt like his brain felt hot. Then he had a headache. He also has some sharp shooting pain in the back of his head. He did not have any neck stiffness or fevers or chills. And he has had no upper respiratory symptoms or GI symptoms. Patient had no trauma or fall. This is not the worst headache of his life. Patient stated that he woke up this morning again and felt a small dull ache. Pain was sharp first and then became dull this am. Complaint: headache Onset (ago): hour(s) Onset description: gradual Location: occipital Severity: mild Severity scale (1-10): 4 Quality: aching and sharp Relieving factors: nothing Exacerbating factors: none Context: occurred at rest Associated symptoms: none Treatments prior to arrival: none Related Data Home Medications Medication Instructions Recorded Confirmed diazepam 5 mg tablet 5 mg PO BID seizures 06/16/22 06/16/22 levetiracetam 500 mg tablet 500 mg PO BID seizures 06/16/22 06/16/22 (Keppra) methadone 5 mg tablet 5 mg PO DAILY drug abuse 06/16/22 06/16/22 Allergies Allergy/AdvReac Type Severity Reaction Status Date / Time promethazine [PROMETHAZINE] Allergy Mild Verified 06/10/22 14:32 [facility] History Hepatitis A Screen Attestation statement:: This patient has been screened for Hepatitis A risk factors. Medical History: Reports: Anxiety, Coronary Artery Disease, Hiatal Hernia, Migraine and Seizures; Denies: Cancer, Diabetes Mellitus Type 1, Diabetes Mellitus Type 2 or MRSA Other Medical History: Reports Other; Denies Blood Transfusion Reaction Comment: Brain Abscess 2012 Other Surgeries: Yes Hernia Repair and Other Amputation: No Fractures: No Comment: brain surgery -2013 [facility]. Social History Smoking Status: Current every day smoker Tobacco Type: cigarettes # Packs/Day (cigarettes): 1 Alcohol Intake: never Alcohol Intake Frequency:: other Substance Use Type: former substance user, marijuana and opiates Occupational Status: disabled Housing: house Household Members: family Psychiatric History Pschychiatric History:: Reports: Anxiety Family Hx:: Cancer [facility] Disclaimer: The information contained in this section may have been updated after the patient was seen, as this information can be updated by other users. Medical History Anxiety Coronary artery disease Hiatal hernia Migraine Seizure Surgical History (Reviewed
[2022-06-16 10:48] LABS: Basophils # 0.1 K/mm3 (0-0.2); Basophils % 0.9 % (0.1-2.0); Eosinophils # 0.2 K/mm3 (0.0-0.4); Eosinophils % 2.5 % (0.1-12.0); Hemoglobin 13.5 g/dL (14.1-18.0); Lymphocytes # 2.4 K/mm3 (0.7-4.5); Lymphocytes % 37.6 % (10-50); Mean Corpuscular HGB Conc 32.2 g/dL (31.8-35.4); Mean Corpuscular Hemoglobin 31.8 pg (27.0-31.2); Mean Corpuscular Volume 98.7 fl (80-94); Monocytes # 0.3 K/mm3 (0.1-1.0); Monocytes % 5.3 % (1.7-9.3); Neutrophils # 3.4 K/mm3 (1.8-7.8); Neutrophils % 53.7 % (37.0-80.0); Platelet Count 129 K/mm3 (142-424); Red Blood Count 4.26 M/mm3 (4.60-6.20); Red Cell Distribution Width 13.9 % (11.5-17.5); White Blood Count 6.4 K/mm3 (4.8-10.8)
[2022-06-16 11:08] LABS: INR 1.03 (0.9-1.1); Prothrombin Time 11.1 seconds (10.1-12.5)
[2022-06-16 11:12] LABS: Alanine Aminotransferase 26 U/L (12-78); Albumin Level 4.6 g/dl (3.5-5.0); Albumin/Globulin Ratio 1.5 (1.1-1.8); Alkaline Phosphatase 83 U/L (38-126); Anion Gap 10.4 mEq/L (5-15); Aspartate Amino Transferase 48 U/L (17-59); Bilirubin,Total 0.5 mg/dl (0.2-1.3); Blood Urea Nitrogen 9 mg/dl (9-20); Carbon Dioxide 31 mmol/L (22.0-30.0); Chloride 101 mmol/L (98-107); Creatinine Clearance Estimated 131 mL/min (50-200); Estimated Glomerular Filt Rate 123 ml/min (>60); GFR (African American) 149 ML/MIN (>60); Globulin 3.1 g/dL (1.3-3.2); Glucose 73 mg/dl (74-100); Potassium 4.4 mmoL/L (3.5-5.1); Sodium 138 mmol/L (136-145); Total Protein,Serum 7.7 g/dl (6.3-8.2)
[2022-06-16 11:16] VITALS: BP 119/64; PULSE 59; O2SAT 98
--- NOTE | 2022-06-16 11:18 | PC.NURSE ---
rounded on patient, no needs at this time. call light within reach. pt hooked back up to monitor
[2022-06-16 11:30] VITALS: BP 104/61; PULSE 51; O2SAT 99
[2022-06-16 12:00] VITALS: BP 100/71; PULSE 61; O2SAT 97
[2022-06-16 12:48] VITALS: BP 119/67; PULSE 54; RESP 16; TEMP 36.8; O2SAT 100
== END 2022-06-16 12:48 | disposition home or self-care (01) ==
PROVIDERS: Emergency Provider Emergency Medicine; PCP Emergency Medicine
DX: R51.9 Headache, unspecified (principal); F17.210 Nicotine dependence, cigarettes, uncomplicated
CPT/HCPCS: 70450; 80053; 85025; 85610; 85730; 99284; 99285

== ENCOUNTER → 2022-11-16 14:15 | Outpatient (CLI) | payer MEDICARE, SELFPAY ==
[2022-11-16 19:15] LABS: Amphetamine/Metha Screen,Urine Negative ng/ml (<1000); Benzodiazepines Screen,Urine Positive ng/ml (<200)
[2022-11-16 19:16] LABS: Barbiturates Screen,Urine Negative ng/ml (<200)
[2022-11-16 19:17] LABS: Cannabinoid Screen,Urine Negative ng/ml (<50); Methadone Screen,Urine Positive ng/ml (<300)
[2022-11-16 19:18] LABS: Cocaine Screen,Urine Negative ng/ml (<300)
[2022-11-16 19:19] LABS: Opiate Screen,Urine Negative ng/ml (<300)
[2022-11-16 19:20] LABS: Phencyclidine Screen,Urine Negative ng/ml (<25)
== END ==
PROVIDERS: PCP Emergency Medicine; Visit Provider Emergency Medicine
DX: Z79.899 Other long term (current) drug therapy (principal)
CPT/HCPCS: 80305

== ENCOUNTER → 2022-11-25 23:26 | Outpatient (CLI) | payer MEDICARE, SELFPAY ==
[2022-11-25 19:33] LABS: Basophils % 0.6 % (0.1-2.0); Eosinophils # 0.2 K/mm3 (0.0-0.4); Eosinophils % 3.4 % (0.1-12.0); Hematocrit 37.7 % (42.0-52.0); Lymphocytes # 1.8 K/mm3 (0.7-4.5); Mean Corpuscular HGB Conc 31.7 g/dL (31.8-35.4); Mean Corpuscular Hemoglobin 31.8 pg (27.0-31.2); Mean Corpuscular Volume 100.3 fl (80-94); Mean Platelet Volume 11.3 fl (7.4-10.4); Monocytes # 0.3 K/mm3 (0.1-1.0); Monocytes % 5.7 % (1.7-9.3); Neutrophils # 2.4 K/mm3 (1.8-7.8); Neutrophils % 51.2 % (37.0-80.0); Platelet Count 136 K/mm3 (142-424); Red Blood Count 3.76 M/mm3 (4.60-6.20); Red Cell Distribution Width 13.4 % (11.5-17.5); White Blood Count 4.6 K/mm3 (4.8-10.8)
[2022-11-25 19:54] LABS: Alanine Aminotransferase 38 U/L (12-78); Albumin Level 4.3 g/dl (3.5-5.0); Albumin/Globulin Ratio 1.5 (1.1-1.8); Alkaline Phosphatase 63 U/L (38-126); Anion Gap 14.5 mEq/L (5-15); Aspartate Amino Transferase 44 U/L (17-59); Bilirubin,Total 0.3 mg/dl (0.2-1.3); Blood Urea Nitrogen 7 mg/dl (9-20); Calcium 9.2 mg/dl (8.4-10.2); Carbon Dioxide 27 mmol/L (22.0-30.0); Chloride 103 mmol/L (98-107); Estimated Glomerular Filt Rate 92 ml/min (>60); GFR (African American) 111 ML/MIN (>60); Globulin 2.9 g/dL (1.3-3.2); Glucose 74 mg/dl (74-100); Potassium 4.5 mmoL/L (3.5-5.1); Sodium 140 mmol/L (136-145); Total Protein,Serum 7.2 g/dl (6.3-8.2)
[2022-11-27 09:37] LABS: HIV Screen 4th Generation wRfx Non Reactive (Non Reactive)
[2022-11-27 10:12] LABS: HBsAg Screen Negative (Negative); HCV Ab Non Reactive (Non Reactive); Hep A Ab, IGM Negative (Negative); Hep B Core Ab, IgM Negative (Negative)
== END ==
PROVIDERS: PCP Emergency Medicine; Visit Provider Internal Medicine
DX: B34.9 Viral infection, unspecified (principal); R56.9 Unspecified convulsions; B19.20 Unspecified viral hepatitis C without hepatic coma; Z11.4 Encounter for screening for human immunodeficiency virus [HIV]
CPT/HCPCS: 80053; 80074; 85025; 86703; G0432

== ENCOUNTER 2023-02-20 02:40 | Emergency (ER) | payer MEDICARE, SELFPAY ==
[2023-02-20 02:40] VITALS: BP 125/97; PULSE 91; RESP 16; TEMP 36.9; O2SAT 97; BMI 17.6
--- NOTE | 2023-02-20 02:47 | XR_ITS ---
PROCEDURE INFORMATION: Exam: XR Chest Exam date and time: 02/20/2023 2:54 AM Age: 42 years old Clinical indication: Shortness of breath; Additional info: SOA TECHNIQUE: Imaging protocol: Radiologic exam of the chest. Views: 1 view. COMPARISON: CR XR CHEST 2V 05/28/2020 4:00 PM FINDINGS: Lungs: No evidence of lobar consolidation. Hyperinflated lungs concerning for COPD. Pleural spaces: No pleural thickening. Heart/Mediastinum: Cardiac silhouette nonenlarged. Bones/joints: Bones unremarkable. IMPRESSION: COPD. No acute findings.
--- NOTE | 2023-02-20 02:52 | HMH.EDGENADL ---
Discharge Plan Disposition Patient Disposition: Home, Self-Care Chief Complaint: Recheck/Abnormal Lab/Rx Prescriptions Prescriptions: No Action diazepam 10 mg tablet 10 mg PO BID Qty: 60 2RF levetiracetam 500 mg tablet 500 mg PO BID 30 Days Qty: 60 2RF methadone 5 mg tablet 5 mg PO DAILY Referrals Follow up/Referrals: Provider,Referral, [Primary Care Provider] - See instructions Activity Restrictions/Add. Instructions Additional Instructions/Restrictions: Please follow-up with your primary care provider. Please return to the emergency department if you develop any new or worsening symptoms or become concerned for your health. I encourage you to begin taking your antiepileptic medications again. I encourage you to begin taking her methadone and taper off slowly in conjunction with your prescriber. Consider nicotine replacement as needed. Clinical Impressions Clinical Impression: Nicotine withdrawal, Opiate withdrawal, Breathlessness Discharge ED Provider: Jean-Claude Calhoun Adult HPI General Chief complaint: Recheck/Abnormal Lab/Rx Stated complaint: seizure Time Seen by Provider: 02/20/23 02:46 Mode of Arrival: EMS Source of Information: Patient Limitations: No Limitations Description of Symptoms (Recalled from ER Triage Doc. by RN): pt stated pcp recently switch him to keppra 1000mg for seziures. pt was also on methodone and valium for substance abuse. pt didn't like the way the methodone and valium was making him feel so it quit taking the valium on wednesday and methodone on . History of Present Illness HPI narrative: 42-year-old male, history of previous substance abuse on chronic methadone, history of prior brain infection with resultant seizures on Valium and Keppra, tobacco use, presents with multiple complaints. He reports that his breathing is not feeling normal. He denies any specific chest pain. He reports that he thinks his seizure medications and his methadone have been making his breathing worse so he has not really been taking them. He has not regularly been taking his seizure medications for a long time. 3 days ago he stopped smoking and stopped taking his Valium. 2 days ago he stopped taking his methadone. He has not regularly been taking his Keppra. He denies any recent fever or illness. He reports that his seizures are not generalized, characterizes them as a tightening . He does not usually lose consciousness or bowel or bladder continence. He is not sure if he has been having seizures. Related Data Home Medications Medication Instructions Recorded Confirmed methadone 5 mg tablet 5 mg PO DAILY drug abuse 11/16/22 02/20/23 Previous Rx's Medication Instructions Recorded diazepam 10 mg tablet 10 mg PO BID seizures #60 tabs 11/30/22 levetiracetam 500 mg tablet 500 mg PO BID seizures 30 days #60 11/30/22 tabs Allergies Allergy/AdvReac Type Severity Reaction Status Date / Time promethazine [PROMETHAZINE] Allergy Mild Verified 11/25/22 14:34 [facility] Disclaimer: The information contained in this section may have been updated after the patient was seen, as this information can be updated by other users. Medical History Anxiety Coronary artery disease Hiatal hernia Migraine Seizure Surgical History H/O brain surgery H/O hernia repair Family History Other Cancer Social History Smoking Status: Former smoker tobacco type: cigarettes packs per day: 1 second hand exposure: No alcohol intake: never counseling provided: none substance use type: former substance user, marijuana and opiates current occupational status: disabled Travel in the last 8 weeks: None household members: family housing: h
[2023-02-20 02:54] LABS: Basophils # 0.1 K/mm3 (0-0.2); Basophils % 1.1 % (0.1-2.0); Eosinophils # 0.1 K/mm3 (0.0-0.4); Hematocrit 39.7 % (42.0-52.0); Hemoglobin 13.4 g/dL (14.1-18.0); Lymphocytes # 2.5 K/mm3 (0.7-4.5); Lymphocytes % 42.7 % (10-50); Mean Corpuscular HGB Conc 33.8 g/dL (31.8-35.4); Mean Corpuscular Hemoglobin 32.5 pg (27.0-31.2); Mean Corpuscular Volume 96.3 fl (80-94); Monocytes # 0.3 K/mm3 (0.1-1.0); Monocytes % 5.2 % (1.7-9.3); Neutrophils # 2.9 K/mm3 (1.8-7.8); Platelet Count 131 K/mm3 (142-424); Red Blood Count 4.12 M/mm3 (4.60-6.20); Red Cell Distribution Width 13.1 % (11.5-17.5); White Blood Count 5.9 K/mm3 (4.8-10.8)
--- NOTE | 2023-02-20 02:56 | ECG_ITS ---
APPROVED REPORT Exam: Resting ECG HR:89 bpm ECG Measurements Heart Rate 89 AXES NJ 170 P 76 QRSd 82 QRS 96 QT 356 T 58 QTc 403 Conclusion SINUS RHYTHM WITH SINUS ARRHYTHMIA POSSIBLE RIGHT ATRIAL ENLARGEMENT [0.25mV P-WAVE] BORDERLINE RIGHT AXIS DEVIATION [QRS AXIS > 90] PATTERN CONSISTENT WITH PULMONARY DISEASE POSSIBLE RIGHT VENTRICULAR CONDUCTION DELAY [RSR (QR) IN V1/V2] NONSPECIFIC T-WAVE ABNORMALITY ABNORMAL ECG UNCONFIRMED REPORT Electronically signed by : Rajat Francis MD 02/24/2023 09:09:08
[2023-02-20 03:00] VITALS: BP 107/77; PULSE 94; RESP 13; O2SAT 98
--- NOTE | 2023-02-20 03:03 | PC.NURSE ---
seizure pads placed on pt's bed rails
[2023-02-20 03:09] LABS: Magnesium 2.1 mg/dl (1.6-2.3)
[2023-02-20 03:11] LABS: Alanine Aminotransferase 25 U/L (12-78); Albumin Level 4.7 g/dl (3.5-5.0); Albumin/Globulin Ratio 1.4 (1.1-1.8); Alkaline Phosphatase 73 U/L (38-126); Anion Gap 7.3 mEq/L (5-15); Aspartate Amino Transferase 38 U/L (17-59); Bilirubin,Total 0.6 mg/dl (0.2-1.3); Blood Urea Nitrogen 10 mg/dl (9-20); Calcium 9.1 mg/dl (8.4-10.2); Carbon Dioxide 31 mmol/L (22.0-30.0); Chloride 102 mmol/L (98-107); Creatinine Clearance Estimated 87 mL/min (50-200); Estimated Glomerular Filt Rate 92 ml/min (>60); GFR (African American) 111 ML/MIN (>60); Globulin 3.4 g/dL (1.3-3.2); Glucose 111 mg/dl (74-100); Potassium 3.3 mmoL/L (3.5-5.1); Sodium 137 mmol/L (136-145); Total Protein,Serum 8.1 g/dl (6.3-8.2)
[2023-02-20 03:25] LABS: T4 (Thyroxine) 8.7 ug/dl (5.53-11.0)
[2023-02-20 03:30] VITALS: BP 115/75; PULSE 72; RESP 10; O2SAT 96
[2023-02-20 03:39] LABS: Thyroid Stimulating Hormone 5.02 uIU/mL (0.465-4.68)
[2023-02-20 04:00] VITALS: BP 101/78; PULSE 72; RESP 10; O2SAT 97
[2023-02-20 04:49] VITALS: BP 105/72; PULSE 70; RESP 16; TEMP 36.9; O2SAT 97
== END 2023-02-20 04:50 | disposition home or self-care (01) ==
PROVIDERS: Emergency Provider Emergency Medicine
DX: F11.23 Opioid dependence with withdrawal (principal); F17.213 Nicotine dependence, cigarettes, with withdrawal; R06.9 Unspecified abnormalities of breathing; I49.9 Cardiac arrhythmia, unspecified; G40.909 Epilepsy, unspecified, not intractable, without status epilepticus; E87.6 Hypokalemia
CPT/HCPCS: 71045; 80053; 83735; 84436; 84443; 85025; 93005; 99284

== ENCOUNTER 2023-03-03 08:48 | Emergency (ER) | payer MEDICARE, SELFPAY ==
[2023-03-03 08:48] VITALS: BP 137/107; PULSE 108; RESP 20; TEMP 36.8; O2SAT 98; BMI 17.6
--- NOTE | 2023-03-03 08:50 | ECG_ITS ---
APPROVED REPORT Exam: Resting ECG HR:109 bpm ECG Measurements Heart Rate 109 AXES [place] 158 P 89 QRSd 93 QRS 87 QT 311 T 90 QTc 375 Conclusion SINUS TACHYCARDIA RIGHT ATRIAL ENLARGEMENT [0.3mV P-WAVE] POSSIBLE RIGHT VENTRICULAR CONDUCTION DELAY [RSR (QR) IN V1/V2] NONSPECIFIC ST & T-WAVE ABNORMALITY ABNORMAL ECG INTERPRETATION BASED ON A DEFAULT AGE OF 40 YEARS UNCONFIRMED REPORT Electronically signed by : Rajat Francis MD 03/04/2023 20:34:42
--- NOTE | 2023-03-03 09:04 | PC.NURSE ---
Dr. Elaine at [facility] for pt eval
[2023-03-03 09:27] LABS: Alanine Aminotransferase 28 U/L (12-78); Albumin Level 4.5 g/dl (3.5-5.0); Albumin/Globulin Ratio 1.5 (1.1-1.8); Alkaline Phosphatase 66 U/L (38-126); Anion Gap 6.7 mEq/L (5-15); Aspartate Amino Transferase 36 U/L (17-59); Bilirubin,Total 0.4 mg/dl (0.2-1.3); Blood Urea Nitrogen 9 mg/dl (9-20); Calcium 9.1 mg/dl (8.4-10.2); Carbon Dioxide 33 mmol/L (22.0-30.0); Chloride 100 mmol/L (98-107); Creatinine Clearance Estimated 87 mL/min (50-200); Estimated Glomerular Filt Rate 92 ml/min (>60); GFR (African American) 111 ML/MIN (>60); Glucose 162 mg/dl (74-100); Potassium 3.7 mmoL/L (3.5-5.1); Sodium 136 mmol/L (136-145); Total Protein,Serum 7.5 g/dl (6.3-8.2)
--- NOTE | 2023-03-03 09:30 | ED_ITS ---
Discharge Plan Disposition Patient Disposition: Home, Self-Care Chief Complaint: Anxiety Prescriptions Prescriptions: No Action levetiracetam 500 mg tablet 500 mg PO BID 30 Days Qty: 60 2RF methadone 5 mg tablet 5 mg PO DAILY Referrals Follow up/Referrals: Provider,Referral, [Referring] - See instructions Clinical Impressions Clinical Impression: Drug withdrawal syndrome Qualifiers: Substance type: opioid Qualified Code(s): F11.93 - Opioid use, unspecified with withdrawal Discharge ED Provider: Sarath Elaine General Adult HPI General Chief complaint: Anxiety Stated complaint: Anxiety Time Seen by Provider: 03/03/23 08:52 Mode of Arrival: Ambulatory Source of Information: Patient Limitations: No Limitations Description of Symptoms (Recalled from ER Triage Doc. by RN): Patient reports he has been feeling shaky, short of breath, and anxious for the last week. Patient states he recently stopped taking his valium and is on methadone which was decreased yesterday. Patient reports history of seizures and has not been taking medication. History of Present Illness HPI narrative: 42-year-old male history of IV drug abuse currently in remission on methadone, previous benzodiazepine use no longer taking presenting with multiple complaints. Patient states that he stopped taking his diazepam 5 mg twice daily about 2 weeks prior to this visit. He has been fine since that time. He has been working with methadone clinic to try to decrease his methadone in order to prevent him from being on any unnecessary medications and attempt to be sober, methadone was decreased on 03/02 from 120 to 115 mg. Patient states that he has had burst of energy, palpitations, feeling like I cannot catch my breath, but cannot catch my breath at the same time. Related Data Home Medications Medication Instructions Recorded Confirmed methadone 5 mg tablet 5 mg PO DAILY drug abuse 11/16/22 02/24/23 Previous Rx's Medication Instructions Recorded levetiracetam 500 mg tablet 500 mg PO BID seizures 30 days #60 11/30/22 tabs Allergies Allergy/AdvReac Type Severity Reaction Status Date / Time promethazine [PROMETHAZINE] Allergy Mild Verified 02/24/23 14:09 [facility] Disclaimer: The information contained in this section may have been updated after the patient was seen, as this information can be updated by other users. Medical History Anxiety Coronary artery disease Hiatal hernia Migraine Seizure Surgical History H/O brain surgery H/O hernia repair Family History Other Cancer Social History Smoking Status: Former smoker tobacco type: cigarettes packs per day: 1 second hand exposure: No alcohol intake: never counseling provided: none substance use type: former substance user, marijuana and opiates current occupational status: disabled Travel in the last 8 weeks: None household members: family housing: house current occupational exposures/hazards: No caffeine: Yes ROS Obtained: Yes All systems reviewed & no additional complaints except as documented Physical Exam General General appearance: alert and in no apparent distress Head Head exam: atraumatic and normocephalic Eye Eye exam: Present normal appearance, PERRL and EOMI ENT ENT exam: Present mucous membranes moist Neck Neck exam: Present normal inspection, full ROM and trachea midline Respiratory Respiratory exam: Absent respiratory distress, wheezes, stridor, accessory muscle use or prolonged expiratory phase Cardiovascular Cardiovascular exam: Present normal rhythm and tachycardia Abdominal Exam Abdominal exam: Present soft; Absent distention, tenderness, guarding, rebound or rigidity Extremities Exam Extremities exam: Absent edema Neurological Exam Neurological exam: Present alert, oriented X3, CN II-XII intact and normal gait; Absent motor sensory deficit Skin Skin exam: Present warm and dry; Absent diaphoresis or erythema Medical Decision Making Medical Records Medical records reviewed: Yes I reviewed the patient's medical records. Jh Inquiry Pt receiving controlled substance: No Jh was queried for this patient: No Vital Signs: 03/03/23 08:48 03/03/23 10:00 Temperature 98.3 F Temperature Source Oral Pulse Rate 74 Pulse Rate [Right] 108 H Respiratory Rate 20 Blood Pressure 106/71 L Blood Pressure [Right Arm] 137/107 H Blood Pressure Mean [Right Arm] 117 Blood Pressure Source [Right Arm] Automatic Cuff 02 Sat by Pulse Oximetry 98 98 Oxygen Delivery Method Room Air Room Air Lab Data Lab Results 03/03/23 08:55: WBC 5.3, RBC 4.23 L, Hgb 13.6 L, Hct 41.0 L, MCV 96.9 H, MCH 32 .1 H, MCHC 33.1, RDW 13.1, Plt Count 146, MPV 9.9, Neut % (Auto) 61.4, Lymph % (Auto) 34.1, Loving % (Auto) 2.9, Eos % (Auto) 1.0, Baso % (Auto) 0.7, Neut # (Auto) 3.3, Lymph # (Auto) 1.8, Loving # (Auto) 0.2, Eos # (Auto) 0.1, Baso # (Auto) 0.0, Sodium 136, Potassium 3.7, Chloride 100, Carbon Dioxide 33 H, Anion Gap 6.7, BUN 9, Creatinine 0.90, Estimated Creat Clear 87, Estimated GFR 92, Est GFR ( Amer) 111, Glucose 162 H, Calcium 9.1, Total Bilirubin 0.4, AST 36, ALT 28, Alkaline Phosphatase 66, Troponin I < 0.01, Total Protein 7.5, Albumin 4.5, Globulin 3.0, Albumin/Globulin Ratio 1.5, TSH 3.95, Thyroxine (T4) 6.7 03/03/23 08:55 03/03/23 08:55 Orders (Tests/Meds): ED MEDICATIONS Generic Name Dose Route Start Last Admin Trade Name Freq PRN Reason Stop Dose Admin Sodium Chloride 1,000 mls @ 999 mls/hr 03/03/23 09:31 03/03/23 09:36 Sod Chlor 0.9% 1000ml Bag IV 03/03/23 10:31 999 mls/hr .Q1H1M ONE Administration Discontinued Medications Generic Name Dose Route Start Last Admin Trade Name Freq PRN Reason Stop Dose Admin Hydroxyzine Pamoate 50 mg 03/03/23 09:15 03/03/23 09:35 Hydroxyzine Pamoate 25mg Capsule PO 03/03/23 09:16 50 mg ONCE ONE Administration ORDERS Category Date Time Status CBC w/Auto Diff [Complete Blood Count Auto Diff] Stat Lab 03/03/23 08:55 Completed CMP [Comprehensive Metabolic Panel] Stat Lab 03/03/23 08:55 Completed T4 (Thyroxine) Stat Lab 03/03/23 08:55 Completed TSH [Thyroid Stimulating Hormone] Stat Lab 03/03/23 08:55 Completed Troponin I Q3H Lab 03/03/23 12:15 Ordered Troponin I Q3H Lab 03/03/23 15:15 Ordered Troponin I Stat Lab 03/03/23 08:55 Completed ECG initial Besson Routine Y 03/03/23 08:50 Completed Medical Decision Narrative: 42-year-old male history of IV drug abuse currently in remission on methadone, previous benzodiazepine use no longer taking presenting with multiple complaints. Patient states that he stopped taking his diazepam 5 mg twice daily about 2 weeks prior to this visit. He has been fine since that time. He has been working with methadone clinic to try to decrease his methadone in order to prevent him from being on any unnecessary medications and attempt to be sober, methadone was decreased on 03/02 from 120 to 115 mg. Patient states that he has had burst of energy, palpitations, feeling like I cannot catch my breath, but cannot catch my breath at the same time. . It to be noted the patient is currently experiencing numerous medication changes which is complicating care and presentation. History was obtained via conversation with patient. On arrival, patient hemodynamically stable, alert, oriented x4, appropriate, GCS 15, moving all extremities spontaneously, pupils equal and reactive to light. Full physical exam performed and significant for well-appearing male no acute distress. Tachycardic, but does not appear excessively anxious. Lungs clear to auscultation, cardiac exam otherwise normal. Patient neurologically intact. Differential includes metabolic, thyroid, anxiety, withdrawal, intoxication, other psychiatric, among others. Patient was given fluid bolus, 50 mg hydroxyzine p.o. for symptomatic management and correction of underlying abnormalities. Workup independently interpreted and significant for nononactionable CBC or chemistry, normal thyroid studies. Negative troponin. Independent interpretation of EKG shows sinus tachycardia [address] or T wave changes concerning for acute ischemia. Intervals within normal limits including VA, QRS, QT. On reevaluation, patient resting comfortably in bed. Given patient presentation, workup, history, this most likely represents acute withdrawal syndrome after weaning off of opiates. Extensive conversation had with patient regarding opiate weaning, withdrawal symptoms, and opiate tolerance, he voiced his understanding. Will follow-up with methadone clinic. Because patient at baseline without signs or symptoms of clinical decompensation, deemed appropriate for discharge. Results were relayed to patient who voiced understanding and were agreeable to outpatient management and follow up. At the time of discharge the patient was hemodynamically stable, tolerating PO, and mobilizing appropriately. Critical Care Critical Care Time Critical Care Time: No
[2023-03-03] MEDS: hydrOXYzine pamoate 25MG CAPSULE 50 MG PO (09:35)
[2023-03-03] MEDS: 0.9 % SODIUM CHLORIDE 1000ML 1,000 ML 999 ML IV (09:36)
[2023-03-03 09:42] LABS: Basophils % 0.7 % (0.1-2.0); Eosinophils # 0.1 K/mm3 (0.0-0.4); Hemoglobin 13.6 g/dL (14.1-18.0); Lymphocytes # 1.8 K/mm3 (0.7-4.5); Lymphocytes % 34.1 % (10-50); Mean Corpuscular HGB Conc 33.1 g/dL (31.8-35.4); Mean Corpuscular Hemoglobin 32.1 pg (27.0-31.2); Mean Corpuscular Volume 96.9 fl (80-94); Mean Platelet Volume 9.9 fl (7.4-10.4); Monocytes # 0.2 K/mm3 (0.1-1.0); Monocytes % 2.9 % (1.7-9.3); Neutrophils # 3.3 K/mm3 (1.8-7.8); Neutrophils % 61.4 % (37.0-80.0); Platelet Count 146 K/mm3 (142-424); Red Blood Count 4.23 M/mm3 (4.60-6.20); Red Cell Distribution Width 13.1 % (11.5-17.5); White Blood Count 5.3 K/mm3 (4.8-10.8)
[2023-03-03 09:45] LABS: T4 (Thyroxine) 6.7 ug/dl (5.53-11.0)
[2023-03-03 09:47] LABS: Troponin I < 0.01 ng/ml (0.00-0.034)
[2023-03-03 09:58] LABS: Thyroid Stimulating Hormone 3.95 uIU/mL (0.465-4.68)
[2023-03-03 10:00] VITALS: BP 106/71; PULSE 74; O2SAT 98
[2023-03-03 10:29] VITALS: BP 106/71; PULSE 80; RESP 18; TEMP 36.8; O2SAT 98
== END 2023-03-03 10:31 | disposition home or self-care (01) ==
PROVIDERS: Emergency Provider Emergency Medicine; PCP Internal Medicine
DX: F11.23 Opioid dependence with withdrawal (principal); R06.02 Shortness of breath; R00.0 Tachycardia, unspecified; I25.10 Atherosclerotic heart disease of native coronary artery without angina pectoris; Z87.891 Personal history of nicotine dependence
CPT/HCPCS: 80053; 84436; 84443; 84484; 85025; 93005; 96360; 99282; 99285

== ENCOUNTER 2023-03-03 15:06 | Emergency (ER) | payer MEDICARE, SELFPAY ==
[2023-03-03 15:15] VITALS: BP 113/78; PULSE 83; RESP 19; TEMP 36.8; O2SAT 97; BMI 18.3
--- NOTE | 2023-03-03 16:10 | HMH.EDGENADL ---
Discharge Plan Disposition Patient Disposition: Home, Self-Care Prescriptions Prescriptions: No Action levetiracetam 500 mg tablet 500 mg PO BID 30 Days Qty: 60 2RF methadone 5 mg tablet 5 mg PO DAILY Referrals Follow up/Referrals: Po Mckeon DO [Primary Care Provider] - See instructions Activity Restrictions/Add. Instructions Additional Instructions/Restrictions: Your symptoms today are nonspecific but not concerning for a focal neurologic deficit you had an extensive evaluation earlier today in the emergency department which was unremarkable no further emergency tests are needed. Please follow-up with your primary care doctor I would recommend that you follow-up with a neurologist if you continue to have the nonspecific paresthesias that you are describing. Clinical Impressions Clinical Impression: Paresthesias Discharge ED Provider: Sarath Elaine General Adult HPI General Chief complaint: Anxiety Stated complaint: NUMBNESS ALL OVER BODY Time Seen by Provider: 03/03/23 15:39 Mode of Arrival: Wheelchair Source of Information: Patient Limitations: No Limitations Description of Symptoms (Recalled from ER Triage Doc. by RN): pt presents to ED with c/o numb hands and stomach wore out . pt was seen in ED earlier this am, and discharged. pt reports it is hard forhim to verbalize exactly how he feels. pt reports he did wean himself off his diazepam approx 2 weeks ago. pt reports no HI/SI. History of Present Illness HPI narrative: Patient is a 42-year-old male with a history of anxiety has been on methadone and benzodiazepines in the past and said multiple ED visits in the last few weeks presents today with paresthesias. He told nursing staff that he felt were out and described earlier some difficulty with breathing but having a difficult time articulating his symptoms I spoke to the physician who saw him earlier today and physical exam and history was nonspecific at that time and labs were unremarkable. Patient was discharged several hours ago. He returns telling me that he feels sensory abnormalities in both of his hands. States he is not been on benzos for several weeks and that the dose of his methadone was decreased by his own accord in the last 48 hours. Related Data Home Medications Medication Instructions Recorded Confirmed methadone 5 mg tablet 5 mg PO DAILY drug abuse 11/16/22 02/24/23 Previous Rx's Medication Instructions Recorded levetiracetam 500 mg tablet 500 mg PO BID seizures 30 days #60 10/02/23 tabs Allergies Allergy/AdvReac Type Severity Reaction Status Date / Time promethazine [PROMETHAZINE] Allergy Mild Verified 03/03/23 15:19 [facility] Disclaimer: The information contained in this section may have been updated after the patient was seen, as this information can be updated by other users. Medical History Anxiety Coronary artery disease Hiatal hernia Migraine Seizure Surgical History H/O brain surgery H/O hernia repair Family History Other Cancer Social History Smoking Status: Former smoker tobacco type: cigarettes packs per day: 1 second hand exposure: No alcohol intake: never counseling provided: none substance use type: former substance user, marijuana and opiates current occupational status: disabled Travel in the last 8 weeks: None household members: family housing: house current occupational exposures/hazards: No caffeine: Yes ROS Obtained: Yes All systems reviewed & no additional complaints except as documented Physical Exam General General appearance: cachectic (Patient states that his muscle wasting is chronic and not an acute problem) Respiratory Respiratory exam: Present normal lung sounds bilaterally; Absent respiratory distress Cardiovascular Cardiovascular exam: Present regular rate; Absent tachycardia Neurological Exam Neurological exam: Present alert, oriented X3, CN II-XII intact, normal gait and other (Patient has normal light touch position sense and temperature sensation bilateral upper extremities); Absent motor sensory deficit Medical Decision Making Jh Inquiry Pt receiving controlled substance: No Vital Signs: 03/03/23 15:15 03/03/23 16:12 Temperature 98.2 F 98.1 F Temperature Source Oral Pulse Rate 86 Pulse Rate [Left Radial] 83 Respiratory Rate 19 20 Blood Pressure 151/92 H Blood Pressure [Right Arm] 113/78 Blood Pressure Mean [Right Arm] 89 02 Sat by Pulse Oximetry 97 Oxygen Delivery Method Room Air Room Air Medical Decision Narrative: Is a very anxious appearing 42-year-old male with a nonfocal neurologic exam this is his return visit he was seen earlier today with nonspecific symptoms had metabolic workup which was unremarkable he has normal sensory exam for me but subjectively states he has some paresthesias advised that he follow-up with his primary care doctor and/or neurologist. This is not consistent with a stroke or a PACKAGE [employer]IMPER abnormality at this point. He is nonfocal has a GCS of 15 normal neurologic exam for me. He was discharged with advised to closely follow-up with his primary care doctor return precautions emphasized he was discharged in a stable condition Critical Care Critical Care Time Critical Care Time: No
[2023-03-03 16:12] VITALS: BP 151/92; PULSE 86; RESP 20; TEMP 36.7; O2SAT 99
== END 2023-03-03 16:14 | disposition home or self-care (01) ==
PROVIDERS: Emergency Provider Emergency Medicine; PCP Internal Medicine
DX: R20.0 Anesthesia of skin (principal); R20.2 Paresthesia of skin; I25.10 Atherosclerotic heart disease of native coronary artery without angina pectoris; G43.909 Migraine, unspecified, not intractable, without status migrainosus; Z87.891 Personal history of nicotine dependence
CPT/HCPCS: 99282

== ENCOUNTER 2023-03-09 01:41 | Emergency (ER) | payer MEDICARE, SELFPAY ==
[2023-03-09] VITALS (11 sets, daily range): BP systolic 99–159; BP diastolic 58–90; PULSE 75–150; RESP 18–42; TEMP 36.6–39.1; O2SAT 93–100; BMI 12.8
[2023-03-09] MEDS: LORazepam 2MG/ML VIAL 1 MG IV ×2 (01:49→01:53)
--- NOTE | 2023-03-09 02:00 | XR_ITS ---
PROCEDURE INFORMATION: Exam: XR Chest Exam date and time: 03/09/2023 2:15 AM Age: 42 years old Clinical indication: Shortness of breath; Additional info: Possible od, seizure activity TECHNIQUE: Imaging protocol: Radiologic exam of the chest. Views: 1 view. COMPARISON: CR XR CHEST PORTABLE 02/20/2023 2:54 AM FINDINGS: Limitations: Suboptimal positioning. Tubes, catheters and devices: Leads overlying chest. Lungs: No definite consolidation. Pleural spaces: No significant pleural effusion. No pneumothorax. Heart/Mediastinum: No cardiomegaly. Bones/joints: No displaced fracture. Soft tissues: Unremarkable. IMPRESSION: No definite acute cardiopulmonary disease.
[2023-03-09] MEDS: LORazepam 2MG/ML VIAL 2 MG IV ×2 (02:03→02:22)
--- NOTE | 2023-03-09 02:18 | ECG_ITS ---
APPROVED REPORT Exam: Resting ECG HR:139 bpm ECG Measurements Heart Rate 139 AXES NV 158 P 86 QRSd 90 QRS 87 QT 276 T 91 QTc 357 Conclusion SINUS TACHYCARDIA WITH OCCASIONAL VENTRICULAR PREMATURE COMPLEXES POSSIBLE RIGHT VENTRICULAR CONDUCTION DELAY [RSR (QR) IN V1/V2] NONSPECIFIC T-WAVE ABNORMALITY ABNORMAL RHYTHM ECG UNCONFIRMED REPORT Electronically signed by : Rajat Francis MD 03/09/2023 20:40:00
[2023-03-09] MEDS: droPERidol 5MG/2ML VIAL 2.5 MG IV (02:22)
[2023-03-09] MEDS: diphenhydrAMINE 50MG/ML VIAL 50 MG IV (02:22)
--- NOTE | 2023-03-09 02:34 | CT_ITS ---
PROCEDURE INFORMATION: Exam: CT Head Without And With Contrast Exam date and time: 03/09/2023 3:49 AM Age: 42 years old Clinical indication: Altered mental status/memory loss; Additional info: AMS, HX seizures, HX ivdu and brain abscess TECHNIQUE: Imaging protocol: Computed tomography of the head without and with contrast. Radiation optimization: All CT scans at this facility use at least one of these dose optimization techniques: automated exposure control; mA and/or kV adjustment per patient size (includes targeted exams where dose is matched to clinical indication); or iterative reconstruction. Contrast material: ISOVUE; Contrast volume: 100 ml; Contrast route: IV; COMPARISON: CT HEAD/BRAIN WO CON 06/16/2022 10:13 AM FINDINGS: Brain: No intracranial hemorrhage. No mass. Encephalomalacia within LEFT frontal region. No abnormal enhancement. No definite edema. Cerebral ventricles: No hydrocephalus. Paranasal sinuses: Postsurgical changes. Mastoid air cells: No significant effusion. Orbital cavities: Unremarkable as visualized. Bones/joints: No acute fracture. Craniotomy. Soft tissues: Unremarkable. IMPRESSION: No definite acute intracranial abnormality. If symptoms persist, consider MRI.
[2023-03-09] MEDS: MIDAZOLAM HCL IN 0.9 % NACL/PF 50 MG/50 ML PLAST..BAG 0.910000000000000031 MG IV (02:35)
[2023-03-09 02:41] LABS: Basophils % 0.2 % (0.1-2.0); Eosinophils % 0.3 % (0.1-12.0); Hematocrit 39.1 % (42.0-52.0); Lymphocytes # 1.7 K/mm3 (0.7-4.5); Lymphocytes % 11.5 % (10-50); Mean Corpuscular HGB Conc 33.1 g/dL (31.8-35.4); Mean Corpuscular Volume 96.6 fl (80-94); Mean Platelet Volume 9.9 fl (7.4-10.4); Monocytes # 0.6 K/mm3 (0.1-1.0); Monocytes % 4.2 % (1.7-9.3); Neutrophils # 12.2 K/mm3 (1.8-7.8); Neutrophils % 83.7 % (37.0-80.0); Platelet Count 174 K/mm3 (142-424); Red Blood Count 4.05 M/mm3 (4.60-6.20); Red Cell Distribution Width 13.3 % (11.5-17.5); White Blood Count 14.6 K/mm3 (4.8-10.8)
[2023-03-09 02:42] LABS: Chloride 99 mmol/L (98-107); Potassium 4.1 mmoL/L (3.5-5.1); Sodium 135 mmol/L (136-145)
--- NOTE | 2023-03-09 02:43 | HMH.EDGENADL ---
Discharge Plan Disposition Patient Disposition: Xfer Short-Term Hosp Condition: Critical Chief Complaint: Seizure Prescriptions Prescriptions: No Action levetiracetam 500 mg tablet 500 mg PO BID 30 Days Qty: 60 2RF methadone 5 mg tablet 5 mg PO DAILY Referrals Follow up/Referrals: Provider,Referral, [Primary Care Provider] - See instructions Clinical Impressions Clinical Impression: AMS (altered mental status), Epilepsy with status epilepticus, Moderate substance use disorder Stand Alone Forms Stand Alone Forms: Transfer Record - ED Instructions Patient Instructions: DI for Seizure Disorder -- Adult, DI for Seizure (Not Epilepsy/Seizure Disorder), DI for Seizure Disorder -- Child Discharge ED Provider: Lou Blanc General Adult HPI General Chief complaint: Seizure Stated complaint: seizures Time Seen by Provider: 03/09/23 02:00 Mode of Arrival: EMS Source of Information: EMS Limitations: No Limitations Description of Symptoms (Recalled from ER Triage Doc. by RN): EMS called out for seizure, family told them that the patient had been having seizure off and on for about a week. Family also staets that the patinet quit taking his medication includin keppra and methadone. History of Present Illness HPI narrative: Patient is a 42-year-old male with past medical history substance use disorder, IVDU, seizure disorder, reportedly brain infection presenting with seizure activity. Presents via EMS with concern for seizure activity, he did have witnessed 22nd seizure for EMS for which they gave 5 mg of Versed. He did become unresponsive after this though initially it did come out of the seizure, when he became unresponsive they gave Narcan which patient did become responsive afterwards but still not back to his baseline. Reportedly he is normally able to converse and is ambulatory. He is not able to provide any supplemental history and has been combative on exam. Related Data Home Medications Medication Instructions Recorded Confirmed methadone 5 mg tablet 5 mg PO DAILY drug abuse 11/16/22 03/09/23 Previous Rx's Medication Instructions Recorded levetiracetam 500 mg tablet 500 mg PO BID seizures 30 days #60 11/30/22 tabs Allergies Allergy/AdvReac Type Severity Reaction Status Date / Time promethazine [PROMETHAZINE] Allergy Mild Verified 03/03/23 15:19 [facility] Disclaimer: The information contained in this section may have been updated after the patient was seen, as this information can be updated by other users. Medical History Anxiety Coronary artery disease Hiatal hernia Migraine Seizure Surgical History H/O brain surgery H/O hernia repair Family History Other Cancer Social History Smoking Status: Current every day smoker tobacco type: cigarettes packs per day: 1 second hand exposure: No alcohol intake: never counseling provided: none substance use type: former substance user, marijuana and opiates current occupational status: disabled Travel in the last 8 weeks: None household members: family housing: house current occupational exposures/hazards: No caffeine: Yes ROS Obtained: Yes unobtainable due to mental status Physical Exam General General appearance: appears intoxicated and obtunded Comment: moaning occasionally and thrashing in bed moving all 4 extremities Head Head exam: atraumatic and normocephalic Eye Eye exam: Present EOMI; Absent scleral icterus Expanded Eye Exam Comment: Pupils 2 mm bilaterally Expanded ENT Exam Comment: Mild laceration to anterior tongue, dry mucous membranes Chest Chest inspection: Present normal inspection and symmetric chest wall rise Respiratory Respiratory exam: Present normal lung sounds bilaterally and other (Tachypneic); Absent wheezes or stridor Cardiovascular Cardiovascular exam: Present regular rate and tachycardia Abdominal Exam Abdominal exam: Present soft, distention and tenderness Extremities Exam Extremities exam: Present normal inspection, full ROM and normal capillary refill Back Exam Back exam: Present normal inspection Neurological Exam Neurological exam: Present other Expanded Neurological Exam Patient oriented to: Absent person, place or time Motor strength - LUE: 5/5 Motor strength - RUE: 5/5 Motor strength - LLE: 5/5 Motor strength - RLE: 5/5 Coma scale verbal response: Confused Comment: Patient moves all extremities errantly without direction, does not seem to focus on examiner except for very rarely but will not respond to any questioning, did respond it hurts to rectal temperature but otherwise produces no comprehensible speech, no facial deficit, no visualized tonic-clonic movement, strength is 5 out of 5 upper and lower extremities and does respond to noxious stimuli all 4 extremities Skin Skin exam: Present warm and dry Medical Decision Making Medical Records Medical records reviewed: Yes I reviewed the patient's medical records. Jh Inquiry Pt receiving controlled substance: No Vital Signs: 03/09/23 01:41 03/09/23 04:13 Temperature 97.9 F Temperature Source Tympanic Pulse Rate [Radial] 150 H Respiratory Rate 24 21 Blood Pressure [Right Arm] 138/74 Blood Pressure Mean [Right Arm] 95 Blood Pressure Source [Right Arm] Manual Cuff/ Auscultation Blood Pressure Position [Right Arm] Supine 02 Sat by Pulse Oximetry 100 100 Oxygen Delivery Method Room Air Lab Data Lab results reviewed: Yes I reviewed the patient's lab results. Lab Results 03/09/23 02:30: WBC 14.6 H, RBC 4.05 L, Hgb 13.0 L, Hct 39.1 L, MCV 96.6 H, MCH 32.0 H, MCHC 33.1, RDW 13.3, Plt Count 174, MPV 9.9, Neut % (Auto) 83.7 H, Lymph % (Auto) 11.5, [place] % (Auto) 4.2, Eos % (Auto) 0.3, Baso % (Auto) 0.2, Neut # (Auto) 12.2 H, Lymph # (Auto) 1.7, [place] # (Auto) 0.6, Eos # (Auto) 0.0, Baso # (Auto) 0.0, Sodium 135 L, Potassium 4.1, Chloride 99, Carbon Dioxide 20 L, Anion Gap 20.1 H, BUN 12, Creatinine 0.80, Estimated Creat Clear 76, Estimated GFR 105, Est GFR ( Amer) 127, Glucose 158 H, Lactate 7.9 H, Calcium 9.2, Total Bilirubin 0.6, AST 138 H, ALT 86 H, Alkaline Phosphatase 80, Total Protein 7.4, Albumin 4.4, Globulin 3.0, Albumin/Globulin Ratio 1.5, Plasma/Serum Alcohol < 10 03/09/23 03:09: Urine Color Yellow, Urine Appearance Clear, Urine pH 6.0, Ur Specific [place] >= 1.030, Urine Protein 1+, Urine Glucose (UA) Negative, Urine Ketones Trace, Urine Blood 3+, Urine Nitrate Negative, Urine Bilirubin Negative, Urine Urobilinogen 0.2, Ur Leukocyte Esterase Negative, Urine RBC 20-50, Urine WBC Occasional, Ur Squamous Epith Cells Occasional, Urine Bacteria Trace, Urine Mucus 1+, Urine Sperm 1+, Urine Opiates Screen Negative, Urine Methadone Screen Positive H, Ur Barbituates Screen Negative, Ur Phencyclidine Scrn Negative, Ur Amphetamines Screen Negative, U Benzodiazepines Scrn Positive H, Urine Cocaine Screen Negative, U Marijuana (THC) Screen Negative 03/09/23 02:30 03/09/23 02:30 Orders (Tests/Meds): ED MEDICATIONS Generic Name Dose Route Start Last Admin Trade Name Freq PRN Reason Stop Dose Admin Midazolam/Sodium Chloride 50 mg in 50 mls @ 0.907 mls/hr 03/09/23 02:45 03/09/23 02:47 Midazolam 50 Mg/50 Ml-0.9%Nacl IV 04/08/23 02:44 0.04 mg/kg/hr .Q24H JAMEE 1.81 mls/hr Titration Protocol 0.02 MG/KG/HR Propofol 100 mls @ 1.361 mls/hr 03/09/23 03:44 Diprivan 10mg/Ml 100ml Bottle IV 04/08/23 03:43 .Q24H JAMEE Protocol 5 MCG/KG/MIN Lactated Ringer's 500 mls @ 500 mls/hr 03/09/23 03:46 03/09/23 04:03 Lactated Ringer's 500ml IV 03/09/23 04:45 Not Given .Q1H ONE Sodium Chloride 10 ml 03/09/23 01:47 Sodium Chloride 0.9% 10ml Vial IV 04/08/23 01:46 NEEDED PRN to Dilute Lorazepam inj Sodium Chloride 10 ml 03/09/23 01:51 Sodium Chloride 0.9% 10ml Vial IV 04/08/23 01:50 NEEDED PRN to Dilute Lorazepam inj Sodium Chloride 10 ml 03/09/23 01:57 Sodium Chloride 0.9% 10ml Vial IV 04/08/23 01:56 NEEDED PRN to Dilute Lorazepam inj Sodium Chloride 10 ml 03/09/23 02:07 Sodium Chloride 0.9% 10ml Vial IV 04/08/23 02:06 NEEDED PRN to Dilute Lorazepam inj Sodium Chloride 3 ml 03/09/23 04:09 Sodium Chloride 3% 15ml Neb IH 04/08/23 04:08 ONCE PRN INDUCE SPUTUM COLLECTION Vancomycin HCl 500 mg 03/09/23 09:00 Vancomycin 500mg Vial IV 03/19/23 08:59 BID JAMEE Discontinued Medications Generic Name Dose Route Start Last Admin Trade Name [place] PRN Reason Stop Dose Admin Acetaminophen 650 mg 03/09/23 02:43 03/09/23 02:45 Acetaminophen 650mg Suppository RC 03/09/23 02:44 650 mg ONCE ONE Administration Diphenhydramine HCl 50 mg 03/09/23 02:15 03/09/23 02:22 Diphenhydramine 50mg/Ml Vial IV 03/09/23 02:16 50 mg ONCE ONE Administration Droperidol 2.5 mg 03/09/23 02:15 03/09/23 02:22 Droperidol 5mg/2ml Vial IV 03/09/23 02:16 2.5 mg ONCE ONE Administration Etomidate 20 mg 03/09/23 04:05 03/09/23 04:06 Etomidate 40mg/20ml Vial IV 03/09/23 04:06 20 mg ONCE ONE Administration Levetiracetam 2,000 mg/ Sodium 120 mls @ 240 mls/hr 03/09/23 02:09 03/09/23 02:58 Chloride IV 03/09/23 02:10 240 mls/hr ONCE ONE Administration Cefepime HCl 1 gm/ Sodium 50 mls @ 100 mls/hr 03/09/23 02:45 03/09/23 03:59 Chloride IV 03/09/23 02:46 100 mls/hr ONCE ONE Administration Lactated Ringer's 500 mls @ 999 mls/hr 03/09/23 03:03 Lactated Ringer's 1000 Ml Bag IV 03/09/23 03:33 .Q31M ONE Lactated Ringer's 1,000 mls @ 999 mls/hr 03/09/23 03:09 03/09/23 03:10 Lactated Ringer's 1000 Ml Bag IV 03/09/23 04:09 999 mls/hr .Q1H1M ONE Administration Iopamidol 100 ml 03/09/23 03:57 03/09/23 03:58 Iopamidol-370 (76%);100ml Bottle IV 03/09/23 03:58 100 ml ONCE ONE Administration Lorazepam 1 mg 03/09/23 01:47 03/09/23 01:49 Lorazepam 2mg/Ml Vial IV 03/09/23 01:48 1 mg ONCE ONE Administration Lorazepam 1 mg 03/09/23 01:51 03/09/23 01:53 Lorazepam 2mg/Ml Vial IV 03/09/23 01:52 1 mg ONCE ONE Administration Lorazepam 2 mg 03/09/23 01:57 03/09/23 02:03 Lorazepam 2mg/Ml Vial IV 03/09/23 01:58 2 mg ONCE ONE Administration Lorazepam 2 mg 03/09/23 02:07 03/09/23 02:22 Lorazepam 2mg/Ml Vial IV 03/09/23 02:08 2 mg ONCE ONE Administration Rocuronium Pierce 70 mg 03/09/23 03:59 03/09/23 04:07 Rocuronium Pierce 50mg/5ml Vial IV 03/09/23 04:00 70 mg ONCE ONE Administration Sodium Chloride 10 ml 03/09/23 03:57 03/09/23 03:58 Sodium Chloride 0.9% 10ml Syr (Rad Only) IV 03/09/23 03:58 10 ml ONCE ONE Administration ORDERS Category Date Time Status CT head/brain wo/w con Stat Cat Scan 03/09/23 02:34 Completed Chest XR -- portable [XR chest portable] Stat Exams 03/09/23 02:00 Completed Chest XR -- portable [XR chest portable] Stat Exams 03/09/23 03:16 Completed CBC w/Auto Diff [Complete Blood Count Auto Diff] Stat Lab 03/09/23 02:30 Completed CMP [Comprehensive Metabolic Panel] Stat Lab 03/09/23 02:30 Completed Drug Screen,Urine Stat Lab 03/09/23 03:09 Completed Ethyl Alcohol Stat Lab 03/09/23 02:30 Completed Lactic Acid Stat Lab 03/09/23 02:30 Completed Urinalysis and Microscopic Stat Lab 03/09/23 03:09 Completed Blood Culture Stat Micro 03/09/23 02:55 Received Sputum Culture & Gram Stain Stat Micro 03/09/23 04:01 Received Restraint Evaluation Restraint Start Date: 03/09/23 Behavior Requiring Restraints: Violent Behavior, Harm to Self, Harm to Others, Banging Head, Kicking, Hitting, Disoriented, Disruption of Therapy and Repeated Attempts to Remove Medical Equipment Alternatives Attempted to Avoid Restraints: Limit Setting/Control, Pain/Comfort Measures, Medication, Constant Observation, Verbal Intervention, Concealed Tubing/Dressing, Fall Protocol, Reposition for Comfort, Bowel/Bladder assessment and Reality Orientation Medical Behavior/Plan: Continue current protocol Medical Decision Narrative: Patient is a 42-year-old male with past medical history of substance use disorder, seizure disorder reportedly noncompliant with medications presenting with altered mental status and seizure activity. Patient reportedly does take methadone and Keppra but has been intermittently compliant with these, per last several documentations seems that he has been off these medications or adjusting himself. He arrives moving all extremities, awake, opening eyes spontaneously but not producing any comprehensible speech, will not answer questions and will only occasionally produce a word that is comprehensible. He was given 5 mg Versed prior to arrival as well as Narcan after becoming unresponsive, concern for possible withdrawal, overdose, epilepsy, status epilepticus and given total of 6 mg Ativan and 2 mg doses during which time patient was still very agitated. Given Benadryl and droperidol for further agitation control but this was refractory to all attempts and at this time feel patient should be started to have some improvement if postictal and approximately 1 and half hours after arrival decision made to intubate for airway protection as well as to facilitate further care given concern for possible intracranial abnormality including bleed and/or abscess considering patient reportedly has some history of intracranial infection. He does have a leukocytosis to 14, lactic acidosis of 7.9 likely causing anion gap, glucose is within normal limits of 158, alcohol was normal and UDS is positive for benzodiazepines which were administered under EMS and our care as well as methadone which he is reportedly taking. He was given 2 g Keppra load as well. He has no evidence of acute traumatic injury except for a bite virgil on right tongue consistent with seizure activity otherwise exam was consistent with trauma or acute abnormality and he was moving all extremities spontaneously, GCS 13. He was given rocuronium for facilitation of intubation. I did also give patient broad spectrum antibiotics as coverage given leukocytosis and possible intracranial infection and fever that this could be is precipitated also in the setting of seizures. I did speak with Dr. Xavier with [facility] initially who stated that he would accept patient but they do not have any beds available, I spoke with Dr. Betancourt with [facility] who does believe patient would be accepted for transfer as I do have an ICU available and Dr. Lauren doing. I was at bedside throughout most of patient's care facilitating patient's care given potential for acute decompensation, respiratory depression given multiple medications, and concern for acute altered mental status and neurologic decompensation. I did review patient's chest x-ray at bedside after intubation and OG and ET tube appear appropriately placed and tube was visualized past bilateral cords with positive colorimetric change and bilateral breath sounds. I Did speak with Lakisha Guzman who is patient's mother and updated her on patient's current care and plan for transfer. Procedures Intubation Mallampati Score:: Class I sedative: Etomidate Mg Given: 20 paralytic: Rocuronium Mg Given: 70 Laryngoscope: fiber optic video scope ET Tube Size: 8 ET Tube Uncuffed: No Tube Secured Depth (cm): 22 Tube Secured Location: lips Tube Placement Confirmation: visualized tube passing through cords, equal breath sounds bilaterally, no breath sounds over epigastrium and confirmation by capnometry Patient Tolerated Procedure: well Intubation Complications: none Critical Care Critical Care Time Critical Care Time: Yes Attestation: On 03/09/23, the high probability of a clinically significant, sudden or life threatening deterioration of the following system(s) required my full and direct attention, intervention and personal management. The time I documented below is in addition to time spent performing reported procedures but includes the following listed in this critical care notation. Total Time Total Critical Care Time: 75
[2023-03-09 02:45] LABS: Alanine Aminotransferase 86 U/L (12-78); Albumin Level 4.4 g/dl (3.5-5.0); Albumin/Globulin Ratio 1.5 (1.1-1.8); Alkaline Phosphatase 80 U/L (38-126); Anion Gap 20.1 mEq/L (5-15); Aspartate Amino Transferase 138 U/L (17-59); Bilirubin,Total 0.6 mg/dl (0.2-1.3); Blood Urea Nitrogen 12 mg/dl (9-20); Calcium 9.2 mg/dl (8.4-10.2); Carbon Dioxide 20 mmol/L (22.0-30.0); Creatinine Clearance Estimated 76 mL/min (50-200); Estimated Glomerular Filt Rate 105 ml/min (>60); GFR (African American) 127 ML/MIN (>60); Glucose 158 mg/dl (74-100); Total Protein,Serum 7.4 g/dl (6.3-8.2)
[2023-03-09] MEDS: ACETAMINOPHEN 650MG SUPPOSITORY 650 MG RC (02:45)
[2023-03-09 02:48] LABS: Lactic Acid 7.9 mmol/L (0.7-2.1)
--- NOTE | 2023-03-09 02:49 | PC.NURSE ---
call to [facility] for transfer
--- NOTE | 2023-03-09 02:49 | PC.NURSE ---
pc to [facility]
[2023-03-09] MEDS: levETIRAcetam 2,000 MG in 0.9 % SODIUM CHLORIDE 100 ML 240 MG IV (02:58)
[2023-03-09] MEDS: LACTATED RINGERS 1000ML 1,000 ML 999 ML IV (03:10)
--- NOTE | 2023-03-09 03:12 | PC.NURSE ---
[facility] returning call Dr. Moe
[2023-03-09 03:14] LABS: Microscopic, Urine URINE MICROSCOPIC (MICROSCOPIC)
--- NOTE | 2023-03-09 03:16 | XR_ITS ---
PROCEDURE INFORMATION: Exam: XR Chest Exam date and time: 03/09/2023 3:24 AM Age: 42 years old Clinical indication: Device placement; Ett placement (vent status); Additional info: Stat et tube and ng tube placement TECHNIQUE: Imaging protocol: Radiologic exam of the chest. Views: 1 view. COMPARISON: CR XR CHEST PORTABLE 03/09/2023 2:15 AM FINDINGS: Limitations: LEFT costophrenic angle excluded from film. Tubes, catheters and devices: Leads overlying chest. NG tube courses below diaphragm, tip projected over body of stomach. No endotracheal tube visualized. Lungs: No consolidation. Pleural spaces: No definite pleural effusion. No pneumothorax. Heart/Mediastinum: No cardiomegaly. Bones/joints: No displaced fracture. Soft tissues: Unremarkable. IMPRESSION: Acceptable position of NG tube.
[2023-03-09 03:17] LABS: Appearance,Urine CLEAR (Clear); Bilirubin,Urine Negative (Negative); Blood, Urine 3+ (Negative); Color,Urine YELLOW (Yellow); Glucose,Urine (UA) Negative (Negative); Ketones,Urine TRACE (Negative); Leukocyte Esterase,Urine Negative (Negative); Nitrate,Urine Negative (Negative); Protein,Urine 1+ (Negative); Specific Gravity, Urine >= 1.030 (1.005-1.030); Urobilinogen,Urine 0.2 EU/dl (0.2)
[2023-03-09] MEDS: propofoL 100 ML 1.3600000000000001 MG IV (03:30)
[2023-03-09 03:31] LABS: Amphetamine/Metha Screen,Urine Negative ng/ml (<1000); Barbiturates Screen,Urine Negative ng/ml (<200); Benzodiazepines Screen,Urine Positive ng/ml (<200); Cannabinoid Screen,Urine Negative ng/ml (<50); Cocaine Screen,Urine Negative ng/ml (<300); Methadone Screen,Urine Positive ng/ml (<300); Mucus,Urine 1+ /lpf; Opiate Screen,Urine Negative ng/ml (<300); Phencyclidine Screen,Urine Negative ng/ml (<25); RBC,Urine 20-50 #/hpf (0-3); Sperm,Urine 1+ /lpf; Squamous Epithelial Cell,Urine Occasional #/hpf (0-5); WBC,Urine Occasional #/hpf (0-3)
[2023-03-09 03:32] LABS: Bacteria,Urine Trace /lpf
--- NOTE | 2023-03-09 03:44 | PC.NURSE ---
pt to CT
[2023-03-09 03:56] LABS: Ethyl Alcohol < 10 mg/dl (0-10)
[2023-03-09] MEDS: IOPAMIDOL-370 (76%);100ML BOTTLE 100 ML IV (03:58)
[2023-03-09] MEDS: SODIUM CHLORIDE 0.9% 10ML SYR (RAD ONLY) 10 ML IV (03:58)
[2023-03-09] MEDS: CEFEPIME HCL 1 GM in 0.9 % SODIUM CHLORIDE 50 ML IV (03:59)
[2023-03-09] MEDS: ETOMIDATE 40MG/20ML VIAL 20 MG IV (04:06)
[2023-03-09] MEDS: ROCURONIUM BROMIDE 50MG/5ML VIAL 70 MG IV (04:07)
--- NOTE | 2023-03-09 04:19 | PC.NURSE ---
[facility] called for report from nurse
--- NOTE | 2023-03-09 04:20 | PC.NURSE ---
[facility] verified Vanc 500mg in 250ml NS
--- NOTE | 2023-03-09 04:26 | PC.NURSE ---
Report given to MAGDALENA Barger
--- NOTE | 2023-03-09 04:28 | PC.NURSE ---
EMS notified of need for transport to [facility]
--- NOTE | 2023-03-09 04:29 | PC.NURSE ---
[employer] [facility] requesting RN to ride with them. Guard Captain S. Call notified, RN from ED will ride with patient
--- NOTE | 2023-03-09 04:39 | PC.NURSE ---
ED doctor on phone with patients mother at this time
[2023-03-09] MEDS: VANCOMYCIN HCL 500 MG in 0.9 % SODIUM CHLORIDE 250 ML 125 MG IV (04:47)
[2023-03-09 05:03] LABS: ABG Base Excess -2.6 mmol/L (-2.4-2.3); ABG HCO3 21.6 mmhg (22.0-26.0); ABG Oxygen Saturation 98 % (90-100); ABG PCO2 32.5 mmhg (35.0-45.0); ABG PH 7.44 mmol/L (7.35-7.45); ABG PO2 112.4 mmhg (80-100); ABG TCO2 22.6 mmhg (23-27)
[2023-03-09 05:05] LABS: Allen's Test Patient Unable; Oxygen 40 %; PEEP 5; Source Left Brachial; Tidal Volume 420; Vent Rate 18
--- NOTE | 2023-03-12 10:08 | PC.NURSE ---
faxed sputum culture results to [facility] [phone]. NTD per
== END 2023-03-09 05:34 | disposition short-term general hospital (02) ==
PROVIDERS: Emergency Provider Emergency Medicine
DX: G40.901 Epilepsy, unspecified, not intractable, with status epilepticus (principal); R41.82 Altered mental status, unspecified; D72.829 Elevated white blood cell count, unspecified; I25.10 Atherosclerotic heart disease of native coronary artery without angina pectoris; F17.210 Nicotine dependence, cigarettes, uncomplicated
CPT/HCPCS: 31500; 51702; 70470; 71045; 80053; 80307; 81001; 82803; 83605; 85025; 87040; 87070; 87205; 93005; 94002; 96361; 96374; 96375; 99291; J0692; J1790; J1953; J2704; J3370; Q9967

== ENCOUNTER 2023-04-07 12:52 | Outpatient (CLI) | payer MEDICARE, SELFPAY ==
[2023-04-07 13:08] LABS: Basophils # 0.1 K/mm3 (0-0.2); Basophils % 1.4 % (0.1-2.0); Eosinophils # 0.1 K/mm3 (0.0-0.4); Eosinophils % 1.5 % (0.1-12.0); Hematocrit 40.4 % (42.0-52.0); Hemoglobin 13.6 g/dL (14.1-18.0); Lymphocytes % 40.3 % (10-50); Mean Corpuscular HGB Conc 33.7 g/dL (31.8-35.4); Mean Corpuscular Hemoglobin 32.8 pg (27.0-31.2); Mean Corpuscular Volume 97.4 fl (80-94); Mean Platelet Volume 10.9 fl (7.4-10.4); Monocytes # 0.2 K/mm3 (0.1-1.0); Monocytes % 4.5 % (1.7-9.3); Neutrophils # 2.6 K/mm3 (1.8-7.8); Neutrophils % 52.4 % (37.0-80.0); Platelet Count 131 K/mm3 (142-424); Red Blood Count 4.15 M/mm3 (4.60-6.20); Red Cell Distribution Width 13.3 % (11.5-17.5)
[2023-04-07 13:15] LABS: Chloride 103 mmol/L (98-107); Sodium 138 mmol/L (136-145)
[2023-04-07 13:16] LABS: Potassium 4.7 mmoL/L (3.5-5.1)
[2023-04-07 13:18] LABS: Alanine Aminotransferase 24 U/L (12-78); Alkaline Phosphatase 70 U/L (38-126); Anion Gap 11.7 mEq/L (5-15); Aspartate Amino Transferase 31 U/L (17-59); Bilirubin,Total 0.5 mg/dl (0.2-1.3); Blood Urea Nitrogen 12 mg/dl (9-20); Carbon Dioxide 28 mmol/L (22.0-30.0); Estimated Glomerular Filt Rate 81 ml/min (>60); GFR (African American) 98 ML/MIN (>60)
[2023-04-07 13:19] LABS: Albumin Level 4.7 g/dl (3.5-5.0); Albumin/Globulin Ratio 1.7 (1.1-1.8); Calcium 9.7 mg/dl (8.4-10.2); Globulin 2.8 g/dL (1.3-3.2); Glucose 119 mg/dl (74-100); Total Protein,Serum 7.5 g/dl (6.3-8.2)
[2023-04-07 13:35] LABS: Triiodothryronine (T3) Uptake 30 % (23.5-40.5)
[2023-04-07 13:36] LABS: Free Thyroxine Index 1.9 ug/dL (5.93-13.13); T4 (Thyroxine) 6.4 ug/dl (5.53-11.0)
[2023-04-07 13:49] LABS: Thyroid Stimulating Hormone 3.31 uIU/mL (0.465-4.68)
[2023-04-07 14:17] LABS: Troponin I < 0.01 ng/ml (0.00-0.034)
[2023-04-07 15:26] LABS: Hemoglobin A1C 5.2 % (4.0-6.0)
[2023-04-07 16:47] LABS: Prostate Specific Ag Screen 0.2 ng/ml (0.0-4.0)
== END 2023-04-07 23:59 ==
LOC: LAB.DROPOF 12:54
PROVIDERS: Visit Provider Family Medicine
DX: Z00.00 Encounter for general adult medical examination without abnormal findings (principal); R00.0 Tachycardia, unspecified; N20.0 Calculus of kidney; Z12.5 Encounter for screening for malignant neoplasm of prostate; R94.31 Abnormal electrocardiogram [ECG] [EKG]; Z79.899 Other long term (current) drug therapy; R73.09 Other abnormal glucose
CPT/HCPCS: 80053; 83036; 84436; 84443; 84479; 84484; 85025; G0103

== ENCOUNTER 2023-04-07 12:58 | Outpatient (CLI) | payer MEDICARE, SELFPAY ==
--- NOTE | 2023-04-07 13:07 | CT_ITS ---
FINAL REPORT TECHNIQUE: Postcontrast axial images of the chest were performed in a CTA protocol. This study was performed with techniques to keep radiation doses as low as reasonably achievable, (ALARA). Individualized dose reduction technique using automated exposure control or adjustment of mA and/or kV according to the patient's size were employed. CLINICAL HISTORY: chest pressure 100 cc of isovue 40 cc saline FINDINGS: The heart is normal in size. No adenopathy is identified. No pleural or pericardial effusion is identified. The thoracic aorta is normal in caliber with no focal aneurysm or dissection identified. There is no filling defect to suggest pulmonary embolism. Mild scarring is noted. No lung infiltrate or mass is identified. The images of the upper abdomen are unremarkable. IMPRESSION: No evidence for PE on this exam. Reviewed, Interpreted and Dictated by Mina Torres III, MD Transcribed by Alma Joyce Authenticated and [facility]
--- NOTE | 2023-04-07 13:07 | CT_ITS ---
FINAL REPORT CLINICAL HISTORY: urination issues COMPARISON: None FINDINGS: Axial CT images of the abdomen and pelvis were obtained without intravenous contrast. Coronal and sagittal reformatted images were also obtained.This study was performed with techniques to keep radiation doses as low as reasonably achievable (ALARA). Individualized dose reduction techniques using automated exposure control or adjustment of mA and/or kV according to the patient's size were employed. Abdomen:The lung bases are clear. There are several 3 mm nonobstructing left renal stones present. The liver, spleen and pancreas have an unremarkable, unenhanced appearance. No mass or adenopathy is seen. No inflammatory process is identified. Mild vascular calcifications are present. Pelvis: Images of the pelvis reveal no evidence of ureteral dilation or ureteral stone.No mass or abnormal fluid collection is identified. The appendix is normal in appearance. IMPRESSION: Several 3 mm nonobstructing left renal stones. No mass or inflammatory process. Reviewed, Interpreted and Dictated by Mina Torres III, MD Transcribed by Michelle Richardson Authenticated and [facility]
[2023-04-07] MEDS: IOPAMIDOL-370 (76%);100ML BOTTLE 100 ML IV (13:54)
[2023-04-07] MEDS: SODIUM CHLORIDE 0.9% 10ML SYR (RAD ONLY) 10 ML IV (13:54)
[2023-04-07] MEDS: 0.9 % SODIUM CHLORIDE 50 ML VIAL IV (13:54)
== END 2023-04-07 23:59 ==
LOC: RAD 12:59
PROVIDERS: PCP Internal Medicine; Visit Provider Family Medicine
DX: R94.31 Abnormal electrocardiogram [ECG] [EKG] (principal); N23 Unspecified renal colic; N20.0 Calculus of kidney; R56.9 Unspecified convulsions; R73.09 Other abnormal glucose; Z79.899 Other long term (current) drug therapy; Z12.5 Encounter for screening for malignant neoplasm of prostate; N39.43 Post-void dribbling; R39.198 Other difficulties with micturition
CPT/HCPCS: 71275; 74176; 80053; 83036; 84436; 84443; 84479; 84484; 85025; G0103; Q9967

== ENCOUNTER 2023-04-29 13:53 | Outpatient (CLI) | payer MEDICARE, SELFPAY ==
--- NOTE | 2023-04-29 13:54 | MR_ITS ---
FINAL REPORT TECHNIQUE: Multiplanar and multisequence imaging of the brain was obtained before and after contrast administration. CLINICAL HISTORY: abnormal CT COMPARISON: CT head with and without contrast dated 03/09/2023 FINDINGS: There is a focus of left frontal encephalomalacia, which was seen on the prior head CT of March 09. This is unchanged in appearance since the prior exam, and no enhancement is noted after contrast administration. The gyri and sulci are otherwise within normal limits for age. There is no mass effect or midline shift. Signal intensity is otherwise normal. No hydrocephalus. The cerebellum and brainstem have an unremarkable appearance. There are no areas of restricted diffusion on diffusion weighted images to suggest acute infarct. Soft tissues are without acute abnormality. No pathologic contrast enhancement is identified. IMPRESSION: No acute intracranial abnormality and no pathologic contrast enhancement. Area of left frontal encephalomalacia seen on a prior CT of March 19 is unchanged in appearance and does not enhance after contrast administration. Reviewed, Interpreted and Dictated by Becky Yousif MD Transcribed by Michelle Richardson Authenticated and [facility]
[2023-04-29] MEDS: GADOTERIDOL INJ 17ML SYRINGE 12 ML IV (14:36)
[2023-04-29] MEDS: SODIUM CHLORIDE 0.9% 10ML SYR (RAD ONLY) 10 ML IV (14:36)
== END 2023-04-29 23:59 ==
LOC: RAD 13:54
PROVIDERS: PCP Family Medicine; Visit Provider Family Medicine
DX: R93.0 Abnormal findings on diagnostic imaging of skull and head, not elsewhere classified (principal); R56.9 Unspecified convulsions
CPT/HCPCS: 70553; A9576

== ENCOUNTER 2023-05-06 07:11 | Outpatient (CLI) | payer MEDICARE, SELFPAY ==
--- NOTE | 2023-05-06 07:12 | CT_ITS ---
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 A noncontrast coronary calcium scan was performed. A CT attenuation threshold of 130 Hounsfield units (HU) was used for the detection of calcium in contiguous voxels of 1 sq mm in area to be counted as individual lesions. Bolus tracking in the ascending aorta with a threshold of 180 HU was performed. Immediately afterwards, ECG synchronized cardiac CT was then performed from the cardiac base to apex using retrospective gating with ECG tube current modulation. A total of 85 mL of Isovue 370 mg/mL contrast medium was administered at 5 mL/sec followed by a saline flush using a biphasic injection protocol. A tube voltage of 120 KVp was used. The patient received the following medications prior to the cardiac CT. 0.8 mg of sublingual nitroglycerin The average heart rate at the time of acquisition was 54 bpm and regular. Image Reconstruction Transaxial images were reconstructed at 0.67 mm slide thickness. Data was reviewed interactively on an advanced workstation capable of 2 and 3-dimensional displays in all conventional reconstruction formats, including multiplanar reformations, maximum intensity projections, curved multiplanar reformations, and volume rendered reconstructions. When applicable, selected routine images describing the relevant coronary anatomy and pathology were saved and sent to PACS. Complications None Technical Quality Overall image quality was good. Coronary artery opacification was adequate. Total DLP (Dose-Length Product) is 1684.6 mGy-cm. The reported value represents the total of one or more individual components during the CT acquisition of this date and at this time, and as such, the same value may appear in more than one CT report depending on the interpreting/reporting physicians. COMPARISON None FINDINGS CT Coronary Calcium Scoring LMA (Left Main Artery) = 0 LAD (Left Anterior Descending) = 0 LCX (Left Coronary Circumflex) = 0 RCA (Right Coronary Artery) = 0 Total Calcium Score = 0 using the AJ-130 method. The interpretation of the calcium heart score is based on the following continuum*: 0 = no calcified plaque detected (risk of coronary artery disease is very low ??? less than 5%) 1-10 = calcium detected in extremely minimal levels (risk of coronary diseases is still low ??? less than 10%) 11-100 = mild levels of plaque detected with certainty (mild or minimal narrowing of heart arteries is likely) 101-400 = definite,at least moderate levels of plaque detected (relatively high risk of a heart attack within 3-5 years) >401-999 = extensive levels of plaque detected (high risk of heart attack, high levels of vascular disease are present, high likelihood of at least one significant coronary narrowing) *The calcium heart score quantifies the burden of coronary calcification/plaque in the coronary arteries. The calcium heart score is not able to evaluate the presence or burden of non-calcified (i.e. soft) plaque. There is no identifiable calcification in the aortic valve, mitral annulus or mitral valve, pericardium, or myocardium. Coronary CT Angiography The coronary arterial system is right dominant. Quantitative Stenosis Grading: Left Main (LM): The left main originates normally from the left sinus of Valsalva. The LM bifurcates into the left anterior descending artery and left circumflex artery. The LM is patent with no evidence of atherosclerosis. Left Anterior Descending (LAD) and Diagonal Branches: The LAD gives off 3 diagonal branches. The LAD and its branches are patent with no evidence of atherosclerosis. There is no evidence of LAD-myocardial bridge. Left Circumflex (LCX) and Obtuse Marginals (OM): The LCX gives off 1 Obtuse Marginal (OM) branch. The LCX and its branches are patent with no evidence of atherosclerosis. Right Coronary Artery (RCA): The RCA originates normally from the right sinus of Valsalva. The RCA gives off a posterior descending artery (PDA) and posterolateral (PL) branches. The RCA and its branches are patent with no evidence of atherosclerosis. Non-Coronary Cardiac Findings: Analysis of the left ventricular (LV) structure and function was performed after 3-D reconstruction of the LV from axial images, with user-corrected automatic contouring for assessment of LV volumes and user-defined reconstruction from oblique planes for measurement of 3-D cardiac structure and function. -The left ventricle systolic function is normal. -There is no left atrial appendage filling defect. Two right pulmonary veins and two left pulmonary veins drain normally into the left atrium. -No pericardial thickening or calcification. -Central and branch pulmonary arteries in the [id number] are unremarkable. -Thoracic aorta within the visualized thoracic aortic-branches in the [id number] is unremarkable. Extracardiac Structures No significant extra-cardiac findings. Note, however, that this study is focused on the cardiac findings. IMPRESSION -No coronary calcification with an Agatston score = 0 using the AJ-130 method. -No evidence of significant flow-limiting atherosclerosis of the coronary arteries. -No evidence of coronary anomalies or myocardial bridges. -CAD-RADS 0. Management recommendations per ACC/AHA guidelines*, as clinically appropriate. *Recommendations: CAD RADS 0: Reassurance. Consider non-atherosclerotic causes of chest pain. CAD RADS 1: Consider non-atherosclerotic causes of chest pain. Consider preventive therapy and risk factor modification. CAD RADS 2: Consider non-atherosclerotic causes of chest pain. Consider preventive therapy and risk factor modification, particularly for patients with nonobstructive plaque in multiple segments. CAD RADS 3: Consider further functional testing. Consider symptom-guided anti-ischemic and preventive pharmacotherapy as well as risk factor modification per published guideline statements. CAD RADS 4A: Consider further functional testing or invasive coronary angiography with revascularization per published guideline statements. Consider symptom-guided anti-ischemic and preventive pharmacotherapy as well as risk factor modification per published guideline statements. CAD RADS 4B: Invasive coronary angiography recommended with revascularization per published guideline statements. Consider symptom-guided anti-ischemic and preventive pharmacotherapy as well as risk factor modification per published guideline statements. CAD RADS 5: Consider invasive angiography and/or viability assessment with revascularization per published guideline statements. Consider symptom-guided anti-ischemic and preventive pharmacotherapy as well as risk factor modification per published guideline statements. CRITICAL RESULT None COMMUNICATION Per this written report The coronary and cardiac findings of this CCTA were reviewed, reported, and signed by Octavio Bennett MD (Vessel Slagman) Conclusion Electronically signed by : Tierney Bennett MD 05/07/2023 23:09:53
[2023-05-06 07:26] VITALS: BP 126/80; PULSE 95; RESP 18; O2SAT 99; BMI 17.6
[2023-05-06] MEDS: IVABRADINE HCL 7.5MG TABLET *IVABRADINE+METOPROLOL REGIMINE 15 MG PO (07:33)
[2023-05-06] MEDS: METOPROLOL TARTRATE 50MG TABLET *IVABRADINE+METOPROLOL REGIMINE 75 MG PO (07:33)
[2023-05-06 08:25] VITALS: BP 114/78; PULSE 58; RESP 18; O2SAT 99
[2023-05-06] MEDS: NITROGLYCERIN 0.4MG SL TABLET 0.800000000000000044 MG SL (08:25)
[2023-05-06 08:30] VITALS: BP 92/56; PULSE 55; RESP 18; O2SAT 99
[2023-05-06 08:35] VITALS: BP 82/49; PULSE 59; RESP 18; O2SAT 98
[2023-05-06 08:45] VITALS: BP 112/76; PULSE 59; RESP 18; O2SAT 96
[2023-05-06] MEDS: 0.9 % SODIUM CHLORIDE 50 ML VIAL IV (08:49)
[2023-05-06] MEDS: IOPAMIDOL-370 (76%);100ML BOTTLE 85 ML IV (08:49)
== END 2023-05-06 23:59 | disposition home or self-care (01) ==
PROVIDERS: PCP Internal Medicine; Visit Provider Nurse Practitioner Family
DX: R94.31 Abnormal electrocardiogram [ECG] [EKG] (principal); R06.00 Dyspnea, unspecified; Z72.0 Tobacco use; R56.9 Unspecified convulsions; F19.91 Other psychoactive substance use, unspecified, in remission
CPT/HCPCS: 75571; 75574; 93306; Q9967

== ENCOUNTER 2023-05-18 15:25 | Outpatient (CLI) | payer MEDICARE, SELFPAY ==
--- NOTE | 2023-05-18 15:31 | XR_ITS ---
FINAL REPORT CLINICAL HISTORY: constipation, abd pain FINDINGS: There is a nonspecific, nonobstructive bowel gas pattern. No bowel dilatation is identified. There is no abnormal calcification. There is a moderate to large amount of retained stool throughout the colon. IMPRESSION: Stool burden as above. Reviewed, Interpreted and Dictated by Mina Torres III, MD Transcribed by Lakisha Reeves Authenticated and [facility]
== END 2023-05-18 23:59 ==
PROVIDERS: PCP Family Medicine; Visit Provider Student in an Organized Health Care Education/Training Program
DX: K59.00 Constipation, unspecified (principal); R10.9 Unspecified abdominal pain
CPT/HCPCS: 74018

== ENCOUNTER 2023-05-20 15:09 | Outpatient (CLI) | payer MEDICARE, SELFPAY ==
--- NOTE | 2023-05-20 15:12 | CA_ITS ---
APPROVED REPORT EXAM: Comprehensive 2D, Doppler, and color-flow Echocardiogram Detacker: Lindsey Cruz RVT Ht: 6 ft 2 in Wt: 127lbs BSA: 1.79 BP: 107/73 mmHg Indications: Shortness of Breath,abn ekg, hx drug use, seizure, smoker M-Mode Dimensions RVDd 1.72 cm (0.9-2.6) LA Diam 2.01 cm (1.9-4.0) LVDd 4.48 cm (3.5-5.7) LVDs 3.00 cm (3.5-5.7) IVSd 0.75 cm (0.6-1.1) PWd 0.59 cm (0.6-1.1) EF (Teich) 61.70% FS 33.00% EDV (Teich) 91.50 mL ESV (Teich) 35.00 mL LV Diastology E Decel Time 223 (160-240 msec) E/A Ratio 1.45 Aortic Valve AO Peak GR. 6.70 mmHg Mitral Valve MV E Max [place]. 79.0 (40-130 cm/s) MV A Velocity 55.0 (40-130 cm/s) E/A Ratio 1.45 MV PHT 65.0 ms Left Ventricle The left ventricle is normal size. The left ventricular systolic function is normal. The left ventricular ejection fraction is within the normal range. There is normal left ventricular wall thickness. The septum is asynchronous. The left ventricular diastolic function is normal. LVEF is 55%. Right Ventricle The right ventricle is normal size. The right ventricular systolic function is normal. Atria The left atrium size is normal. The right atrium size is normal. The interatrial septum is not well-visualized. Aortic Valve The aortic valve is normal in structure. There is no aortic valvular stenosis. No aortic regurgitation is present. Mitral Valve The mitral valve is normal in structure. No evidence of mitral valve stenosis. There is no mitral valve regurgitation noted. Tricuspid Valve The tricuspid valve leaflets are thin and pliable. Trace tricuspid regurgitation. There is insufficient TR jet to estimate RVSP. Pulmonic Valve The pulmonary valve is not well-visualized. Great Vessels The aortic root is not well-visualized. The IVC is not well-visualized. Pericardium There is no pericardial effusion. Other Information Study Quality: Technically Difficult Conclusion Technically difficult study due to poor acoustic windows. Normal biventricular systolic function. Asynchronous septum. No significant valvular stenosis or regurgitation. Electronically signed by : Tierney Bennett MD 05/24/2023 12:48:11
== END 2023-05-20 23:59 ==
LOC: RT 15:09
PROVIDERS: PCP Family Medicine; Visit Provider Nurse Practitioner Family
DX: R94.31 Abnormal electrocardiogram [ECG] [EKG] (principal); R06.00 Dyspnea, unspecified; R56.9 Unspecified convulsions; F17.210 Nicotine dependence, cigarettes, uncomplicated; F19.91 Other psychoactive substance use, unspecified, in remission
CPT/HCPCS: 93306

== ENCOUNTER 2023-06-12 09:16 | Outpatient (CLI) | payer MEDICARE, SELFPAY | END 2023-06-12 23:59 | disposition home or self-care (01) | PROVIDERS: PCP Family Medicine; Visit Provider Family Medicine | DX: R10.9 Unspecified abdominal pain (principal) ==

== ENCOUNTER 2023-06-23 15:46 | Emergency (ER) | payer MEDICARE, SELFPAY ==
[2023-06-23 15:48] VITALS: BP 109/69; PULSE 81; RESP 18; TEMP 36.8; O2SAT 99; BMI 15.1
--- NOTE | 2023-06-23 16:53 | HMH.EDGENADL ---
Discharge Plan Disposition Patient Disposition: Home, Self-Care Condition: Good Prescriptions Prescriptions: New Relistor 150 mg tablet 450 mg PO DAILY Qty: 90 0RF No Action thiamine mononitrate (vit B1) [Vitamin B-1 (mononitrate)] 100 mg tablet 100 mg PO DAILY methadone 62 mg PO DAILY mecobalamin (vitamin B12) 2,500 mcg tablet,chewable 2,500 mcg PO .qd Qty: 90 3RF levetiracetam [Keppra] 500 mg tablet 500 mg PO BID Qty: 180 3RF polyethylene glycol 3350 [Miralax] 17 gram powder in packet 17 g PO DAILY Qty: 30 1RF Referrals Follow up/Referrals: Betsy Guerra APRN [Primary Care Provider] - See instructions Activity Restrictions/Add. Instructions Additional Instructions/Restrictions: Continue your current bowel regimen adding this medication as well. Stay hydrated. Follow-up with your PCP for referral to gastroenterology for further evaluation. Clinical Impressions Clinical Impression: Constipation Qualifiers: Constipation type: unspecified constipation type Qualified Code(s): K59.00 - Constipation, unspecified Instructions Patient Instructions: DI for Acute Abdominal Pain Discharge ED Provider: Sarath Elaine General Adult HPI <MELISSA Shaw - Last Filed: 06/23/23 18:20> General Chief complaint: Abdominal Pain Stated complaint: Abdominal Pain,stomach pain Time Seen by Provider: 06/23/23 16:49 History of Present Illness HPI narrative: Patient presents with a several day history of being unable to have a bowel movement along with some associated abdominal pain. Patient denies any alleviating or aggravating factors. Patient has tried [id number] stool softeners without success. Related Data Home Medications Medication Instructions Recorded Confirmed methadone 62 mg PO DAILY 04/07/23 06/09/23 thiamine mononitrate (vit B1) 100 100 mg PO DAILY 05/10/23 06/09/23 mg tablet (Vitamin B-1 (mononitrate)) Previous Rx's Medication Instructions Recorded levetiracetam 500 mg tablet 500 mg PO BID #180 tabs 05/05/23 (Keppra) mecobalamin (vitamin B12) 2,500 2,500 mcg PO .qd malnutrition #90 05/05/23 mcg chewable tablet tabs polyethylene glycol 3350 17 gram 17 g PO DAILY #30 ea 05/18/23 oral powder packet (Miralax) methylnaltrexone 150 mg tablet 450 mg (3 x 150 mg) PO DAILY #90 06/23/23 (Relistor) tabs Allergies Allergy/AdvReac Type Severity Reaction Status Date / Time promethazine [PROMETHAZINE] Allergy Mild Verified 06/09/23 13:11 PFSH <MELISSA Shaw - Last Filed: 06/23/23 18:20> [facility] Disclaimer: The information contained in this section may have been updated after the patient was seen, as this information can be updated by other users. Medical History (Updated 06/23/23 @ 18:18 by MELISSA Shaw) Migraine Hiatal hernia Coronary artery disease Anxiety Seizure Surgical History H/O brain surgery H/O hernia repair Family History Other Cancer Social History Smoking Status: Current every day smoker tobacco type: cigarettes packs per day: 1 second hand exposure: No alcohol intake: never counseling provided: none substance use type: former substance user, marijuana and opiates current occupational status: disabled Travel in the last 8 weeks: None household members: family housing: house current occupational exposures/hazards: No caffeine: Yes <MELISSA Shaw - Last Filed: 06/23/23 18:20> ROS Obtained: Yes Systems reviewed as appropriate & no additional complaints except as documented Physical Exam <MELISSA Shaw - Last Filed: 06/23/23 18:20> General General appearance: other (Patient looks profoundly cachectic generally unwell and much older than stated age 42-year-old gentleman who otherwise is in no acute distress) Chest Chest inspection: Present normal inspection; Absent tenderness Respiratory Respiratory exam: Present normal lung sounds bilaterally; Absent respiratory distress Cardiovascular Cardiovascular exam: Present regular rate, normal rhythm and normal heart sounds Abdominal Exam Abdominal exam: Present soft (Scaphoid), tenderness (Mildly diffusely tender) and normal bowel sounds; Absent guarding, rebound or rigidity Back Exam Back exam: Present normal inspection and full ROM; Absent tenderness Neurological Exam Neurological exam: Present alert and oriented X3 Medical Decision Making <MELISSA Shaw - Last Filed: 06/23/23 18:20> Medical Records Medical records reviewed: Yes I reviewed the patient's medical records. Jh Inquiry Pt receiving controlled substance: No Vital Signs: 06/23/23 15:48 06/23/23 18:28 Temperature 98.3 F 98.0 F Temperature Source Oral Oral Pulse Rate 80 Pulse Rate [Left] 81 Respiratory Rate 18 18 Blood Pressure 112/70 Blood Pressure [Left Arm] 109/69 L Blood Pressure Mean [Left Arm] 82 Blood Pressure Source Automatic Cuff Blood Pressure Position Sitting 02 Sat by Pulse Oximetry 99 Oxygen Delivery Method Room Air Room Air Lab Data Lab results reviewed: Yes I reviewed the patient's lab results. Lab Results 06/23/23 15:43: Urine Color Yellow, Urine Appearance Clear, Urine pH 6.5, Ur Specific Landing 1.025, Urine Protein Negative, Urine Glucose (UA) Negative, Urine Ketones Negative, Urine Blood Negative, Urine Nitrate Negative, Urine Bilirubin Negative, Urine Urobilinogen 0.2, Ur Leukocyte Esterase Negative, Urine RBC None, Urine WBC None, Ur Squamous Epith Cells Occasional, Urine Bacteria 1+, Urine Opiates Screen Negative, Urine Methadone Screen Positive H, Ur Barbituates Screen Negative, Ur Phencyclidine Scrn Negative, Ur Amphetamines Screen Negative, U Benzodiazepines Scrn Negative, Urine Cocaine Screen Negative, U Marijuana (THC) Screen Negative 06/23/23 17:00: WBC 5.3, RBC 4.01 L, Hgb 12.8 L, Hct 39.7 L, MCV 98.9 H, MCH 32.0 H, MCHC 32.4, RDW 13.6, Plt Count 142, MPV 10.4, Neut % (Auto) 47.6, Lymph % (Auto) 44.4, Nolan % (Auto) 4.9, Eos % (Auto) 2.1, Baso % (Auto) 1.1, Neut # (Auto) 2.5, Lymph # (Auto) 2.4, Nolan # (Auto) 0.3, Eos # (Auto) 0.1, Baso # (Auto) 0.1, Sodium 140, Potassium 4.2, Chloride 103, Carbon Dioxide 32 H, Anion Gap 9.2, BUN 10, Creatinine 1.00, Estimated Creat Clear 70, Estimated GFR 81, Est GFR ( Amer) 98, Glucose 85, Lactate 1.3, Calcium 9.6, Magnesium 2.1, Total Bilirubin 0.4, AST 33, ALT 19, Alkaline Phosphatase 73, Total Protein 7.2, Albumin 4.5, Globulin 2.7, Albumin/Globulin Ratio 1.7, Lipase 130, TSH 4.08 06/23/23 17:00 06/23/23 17:00 Orders (Tests/Meds): ED MEDICATIONS Discontinued Medications Generic Name Dose Route Start Last Admin Trade Name Freq PRN Reason Stop Dose Admin Acetaminophen 1,000 mg 06/23/23 16:54 06/23/23 17:14 Acetaminophen 1,000mg/100ml Vial IV 06/23/23 16:55 1,000 mg ONCE ONE Administration Lactated Ringer's 1,000 mls @ 999 mls/hr 06/23/23 16:54 06/23/23 17:15 Lactated Ringer's 1000 Ml Bag IV 06/23/23 17:54 999 mls/hr .Q1H1M ONE Administration Ketorolac Tromethamine 15 mg 06/23/23 16:54 06/23/23 17:14 Ketorolac 30mg/Ml Vial IV 06/23/23 16:55 15 mg ONCE ONE Administration ORDERS Category Date Time Status CT abdomen pelvis wo con Stat Cat Scan 06/23/23 16:54 Completed CBC w/Auto Diff [Complete Blood Count Auto Diff] Stat Lab 06/23/23 17:00 Completed CMP [Comprehensive Metabolic Panel] Stat Lab 06/23/23 17:00 Completed Lactic Acid Stat Lab 06/23/23 17:00 Completed Lipase Stat Lab 06/23/23 17:00 Completed Magnesium Stat Lab 06/23/23 17:00 Completed TSH [Thyroid Stimulating Hormone] Stat Lab 06/23/23 17:00 Completed UA [Urinalysis and Microscopic] Stat Lab 06/23/23 15:43 Completed UDS [Drug Screen,Urine] Stat Lab 06/23/23 15:43 Completed Medical Decision Narrative: In summary patient is a 42-year-old male who presents to the emergency department for evaluation of constipation and abdominal pain. Patient is dynamically stable upon arrival, afebrile. Exam is remarkable for mild diffuse tenderness to palpation over the abdomen but normal bowel sounds and no rebound no guarding or rigidity.. Differential diagnosis includes constipation versus acute appendicitis versus cholecystitis etc. Initial workup will be conducted with hematologic labs, CT scan abdomen pelvis without contrast urines. Initial interventions include crystalloid bolus, Toradol Tylenol. Initial workup reviewed by me shows that his hematologic labs are nonactionable and my formal review of the CT scan of the abdomen/pelvis shows no acute processes. Upon repeat evaluation patient feels appropriate for discharge given no acute findings on his workup thus far. Given this patient is discharged with a prescription for Relistluis along with Jerson back to his PCP for referral for GI for motility investigation <Sarath Elaine MD - Last Filed: 06/23/23 22:12> Vital Signs: 06/23/23 15:48 06/23/23 18:28 Temperature 98.3 F 98.0 F Temperature Source Oral Oral Pulse Rate 80 Pulse Rate [Left] 81 Respiratory Rate 18 18 Blood Pressure 112/70 Blood Pressure [Left Arm] 109/69 L Blood Pressure Mean [Left Arm] 82 Blood Pressure Source Automatic Cuff Blood Pressure Position Sitting 02 Sat by Pulse Oximetry 99 Oxygen Delivery Method Room Air Room Air Lab Data Lab Results 06/23/23 15:43: Urine Color Yellow, Urine Appearance Clear, Urine pH 6.5, Ur Specific Landing 1.025, Urine Protein Negative, Urine Glucose (UA) Negative, Urine Ketones Negative, Urine Blood Negative, Urine Nitrate Negative, Urine Bilirubin Negative, Urine Urobilinogen 0.2, Ur Leukocyte Esterase Negative, Urine RBC None, Urine WBC None, Ur Squamous Epith Cells Occasional, Urine Bacteria 1+, Urine Opiates Screen Negative, Urine Methadone Screen Positive H, Ur Barbituates Screen Negative, Ur Phencyclidine Scrn Negative, Ur Amphetamines Screen Negative, U Benzodiazepines Scrn Negative, Urine Cocaine Screen Negative, U Marijuana (THC) Screen Negative 06/23/23 17:00: WBC 5.3, RBC 4.01 L, Hgb 12.8 L, Hct 39.7 L, MCV 98.9 H, MCH 32.0 H, MCHC 32.4, RDW 13.6, Plt Count 142, MPV 10.4, Neut % (Auto) 47.6, Lymph % (Auto) 44.4, Nolan % (Auto) 4.9, Eos % (Auto) 2.1, Baso % (Auto) 1.1, Neut # (Auto) 2.5, Lymph # (Auto) 2.4, Nolan # (Auto) 0.3, Eos # (Auto) 0.1, Baso # (Auto) 0.1, Sodium 140, Potassium 4.2, Chloride 103, Carbon Dioxide 32 H, Anion Gap 9.2, BUN 10, Creatinine 1.00, Estimated Creat Clear 70, Estimated GFR 81, Est GFR ( Amer) 98, Glucose 85, Lactate 1.3, Calcium 9.6, Magnesium 2.1, Total Bilirubin 0.4, AST 33, ALT 19, Alkaline Phosphatase 73, Total Protein 7.2, Albumin 4.5, Globulin 2.7, Albumin/Globulin Ratio 1.7, Lipase 130, TSH 4.08 Orders (Tests/Meds): ED MEDICATIONS Discontinued Medications Generic Name Dose Route Start Last Admin Trade Name Freq PRN Reason Stop Dose Admin Acetaminophen 1,000 mg 06/23/23 16:54 06/23/23 17:14 Acetaminophen 1,000mg/100ml Vial IV 06/23/23 16:55 1,000 mg ONCE ONE Administration Lactated Ringer's 1,000 mls @ 999 mls/hr 06/23/23 16:54 06/23/23 17:15 Lactated Ringer's 1000 Ml Bag IV 06/23/23 17:54 999 mls/hr .Q1H1M ONE Administration Ketorolac Tromethamine 15 mg 06/23/23 16:54 06/23/23 17:14 Ketorolac 30mg/Ml Vial IV 06/23/23 16:55 15 mg ONCE ONE Administration ORDERS Category Date Time Status CT abdomen pelvis wo con Stat Cat Scan 06/23/23 16:54 Completed CBC w/Auto Diff [Complete Blood Count Auto Diff] Stat Lab 06/23/23 17:00 Completed CMP [Comprehensive Metabolic Panel] Stat Lab 06/23/23 17:00 Completed Lactic Acid Stat Lab 06/23/23 17:00 Completed Lipase Stat Lab 06/23/23 17:00 Completed Magnesium Stat Lab 06/23/23 17:00 Completed TSH [Thyroid Stimulating Hormone] Stat Lab 06/23/23 17:00 Completed UA [Urinalysis and Microscopic] Stat Lab 06/23/23 15:43 Completed UDS [Drug Screen,Urine] Stat Lab 06/23/23 15:43 Completed Medical Decision Narrative: In summary patient is a 42-year-old male who presents to the emergency department for evaluation of constipation and abdominal pain. Patient is dynamically stable upon arrival, afebrile. Exam is remarkable for mild diffuse tenderness to palpation over the abdomen but normal bowel sounds and no rebound no guarding or rigidity.. Differential diagnosis includes constipation versus acute appendicitis versus cholecystitis etc. Initial workup will be conducted with hematologic labs, CT scan abdomen pelvis without contrast urines. Initial interventions include crystalloid bolus, Toradol Tylenol. Initial workup reviewed by me shows that his hematologic labs are nonactionable and my formal review of the CT scan of the abdomen/pelvis shows no acute processes. Upon repeat evaluation patient feels appropriate for discharge given no acute findings on his workup thus far. Given this patient is discharged with a prescription for Relistluis along with Jerson back to his PCP for referral for GI for motility investigation because patient at baseline without signs or symptoms of clinical decompensation, deemed appropriate for discharge. Results were relayed to patient who voiced understanding and were agreeable to outpatient management and follow up. I discussed my clinical impression with patient and answered all questions. At this time, the evidence for any other entities in the differential is insufficient to warrant any further testing or ED observation. This was explained as well. Advisory was given that persistent or worsening symptoms require further evaluation. I confirmed the understanding of this discussion. I was consulted by the MARCO ANTONIO, and we discussed the complexity of the problems being addressed. I approved the treatment and management plan for this patient?s care in the Emergency Department, thus performing a substantive portion of the medical decision making. Sarath Elaine MD Critical Care <MELISSA Shaw - Last Filed: 06/23/23 18:20> Critical Care Time Critical Care Time: No
--- NOTE | 2023-06-23 16:54 | CT_ITS ---
PROCEDURE INFORMATION: Exam: CT Abdomen And Pelvis Without Contrast Exam date and time: 06/23/2023 5:08 PM Age: 42 years old Clinical indication: Abdominal pain; Additional info: Acute abd pain TECHNIQUE: Imaging protocol: Computed tomography of the abdomen and pelvis without contrast. Radiation optimization: All CT scans at this facility use at least one of these dose optimization techniques: automated exposure control; mA and/or kV adjustment per patient size (includes targeted exams where dose is matched to clinical indication); or iterative reconstruction. COMPARISON: CT ABDOMEN PELVIS WO CON 04/07/2023 1:31 PM FINDINGS: Limitations: Evaluation of visceral organs and vasculature and sensitivity for lymphadenopathy are limited in the absence of intravenous contrast. Lungs: The included lung bases demonstrate no consolidation. Pulmonary emphysema more notable on the right and partially imaged 2.9 cm subpleural non-specific right lower lobe cyst. Liver: Liver is unremarkable. Gallbladder and bile ducts: Gallbladder is normal. No calcified stones. No ductal dilatation. Pancreas: Pancreas is unremarkable. No ductal dilatation. Spleen: Few small calcified splenic granulomata. No splenomegaly. Adrenal glands: No adrenal mass. Kidneys and ureters: Few non-obstructing less than 3 mm left renal stones. Kidneys are otherwise unremarkable. No hydronephrosis or hydroureter. Stomach and bowel: No evidence of bowel obstruction or acute bowel abnormality. Appendix: No evidence of appendicitis. Intraperitoneal space: No free air. No significant fluid collection. Vasculature: Mild calcified aortoiliac atherosclerotic disease. No AAA. Few pelvic phleboliths similar to prior. Lymph nodes: No enlarged lymph nodes. Urinary bladder: Urinary bladder is unremarkable for degree of distention. Reproductive: Unremarkable as visualized. Bones/joints: No acute osseous abnormality or suspicious osseous lesion. Soft tissues: Unremarkable. IMPRESSION: 1. No acute abnormality in the abdomen or pelvis. 2. Few less than 3 mm non-obstructing left renal stones. No hydronephrosis or hydroureter. 3. Calcified aortoiliac atherosclerotic disease. No AAA. 4. Other chronic and incidental findings as detailed above.
[2023-06-23 17:01] LABS: Microscopic, Urine URINE MICROSCOPIC (MICROSCOPIC)
[2023-06-23] MEDS: ACETAMINOPHEN 1,000MG/100ML VIAL 1000 MG IV (17:14)
[2023-06-23] MEDS: KETOROLAC 30MG/ML VIAL 15 MG IV (17:14)
[2023-06-23] MEDS: LACTATED RINGERS 1000ML 1,000 ML 999 ML IV (17:15)
[2023-06-23 17:17] LABS: Amphetamine/Metha Screen,Urine Negative ng/ml (<1000)
[2023-06-23 17:17] LABS: Basophils # 0.1 K/mm3 (0-0.2); Basophils % 1.1 % (0.1-2.0); Eosinophils # 0.1 K/mm3 (0.0-0.4); Eosinophils % 2.1 % (0.1-12.0); Hematocrit 39.7 % (42.0-52.0); Hemoglobin 12.8 g/dL (14.1-18.0); Lymphocytes # 2.4 K/mm3 (0.7-4.5); Lymphocytes % 44.4 % (10-50); Mean Corpuscular HGB Conc 32.4 g/dL (31.8-35.4); Mean Corpuscular Volume 98.9 fl (80-94); Mean Platelet Volume 10.4 fl (7.4-10.4); Monocytes # 0.3 K/mm3 (0.1-1.0); Monocytes % 4.9 % (1.7-9.3); Neutrophils # 2.5 K/mm3 (1.8-7.8); Neutrophils % 47.6 % (37.0-80.0); Platelet Count 142 K/mm3 (142-424); Red Blood Count 4.01 M/mm3 (4.60-6.20); Red Cell Distribution Width 13.6 % (11.5-17.5); White Blood Count 5.3 K/mm3 (4.8-10.8)
[2023-06-23 17:18] LABS: Barbiturates Screen,Urine Negative ng/ml (<200); Benzodiazepines Screen,Urine Negative ng/ml (<200)
[2023-06-23 17:19] LABS: Cannabinoid Screen,Urine Negative ng/ml (<50)
[2023-06-23 17:20] LABS: Cocaine Screen,Urine Negative ng/ml (<300); Methadone Screen,Urine Positive ng/ml (<300)
[2023-06-23 17:21] LABS: Opiate Screen,Urine Negative ng/ml (<300)
[2023-06-23 17:21] LABS: Chloride 103 mmol/L (98-107); Potassium 4.2 mmoL/L (3.5-5.1); Sodium 140 mmol/L (136-145)
[2023-06-23 17:22] LABS: Phencyclidine Screen,Urine Negative ng/ml (<25)
[2023-06-23 17:24] LABS: Alanine Aminotransferase 19 U/L (12-78); Albumin Level 4.5 g/dl (3.5-5.0); Albumin/Globulin Ratio 1.7 (1.1-1.8); Alkaline Phosphatase 73 U/L (38-126); Anion Gap 9.2 mEq/L (5-15); Aspartate Amino Transferase 33 U/L (17-59); Bilirubin,Total 0.4 mg/dl (0.2-1.3); Blood Urea Nitrogen 10 mg/dl (9-20); Calcium 9.6 mg/dl (8.4-10.2); Carbon Dioxide 32 mmol/L (22.0-30.0); Creatinine Clearance Estimated 70 mL/min (50-200); Estimated Glomerular Filt Rate 81 ml/min (>60); GFR (African American) 98 ML/MIN (>60); Globulin 2.7 g/dL (1.3-3.2); Glucose 85 mg/dl (74-100); Lipase 130 U/L (23-300); Total Protein,Serum 7.2 g/dl (6.3-8.2)
[2023-06-23 17:25] LABS: Lactic Acid 1.3 mmol/L (0.7-2.1); Magnesium 2.1 mg/dl (1.6-2.3)
[2023-06-23 17:38] LABS: Appearance,Urine CLEAR (Clear); Bilirubin,Urine Negative (Negative); Blood, Urine Negative (Negative); Color,Urine YELLOW (Yellow); Glucose,Urine (UA) Negative (Negative); Ketones,Urine Negative (Negative); Leukocyte Esterase,Urine Negative (Negative); Nitrate,Urine Negative (Negative); PH,Urine 6.5 (5.0-8.5); Protein,Urine Negative (Negative); Specific Gravity, Urine 1.025 (1.005-1.030); Urobilinogen,Urine 0.2 EU/dl (0.2)
[2023-06-23 17:44] LABS: Bacteria,Urine 1+ /lpf; Squamous Epithelial Cell,Urine Occasional #/hpf (0-5)
[2023-06-23 17:55] LABS: Thyroid Stimulating Hormone 4.08 uIU/mL (0.465-4.68)
[2023-06-23 18:28] VITALS: BP 112/70; PULSE 80; RESP 18; TEMP 36.7; O2SAT 98
[2023-06-24 10:27] LABS: Vitamin B12 > 1000 pg/mL (239-931)
== END 2023-06-23 18:28 | disposition home or self-care (01) ==
PROVIDERS: Physician Assistant; Emergency Provider Emergency Medicine; PCP Family Medicine
DX: R10.819 Abdominal tenderness, unspecified site (principal); K59.00 Constipation, unspecified; F17.210 Nicotine dependence, cigarettes, uncomplicated
CPT/HCPCS: 74176; 80053; 80307; 81001; 82607; 83605; 83690; 83735; 84443; 85025; 96361; 96374; 96375; 99284; J0131

== ENCOUNTER 2023-08-05 15:15 | Outpatient (CLI) | payer MEDICARE, SELFPAY ==
--- NOTE | 2023-08-05 15:20 | CT_ITS ---
FINAL REPORT TECHNIQUE: Axial CT images of the abdomen and pelvis were obtained before and after the administration of IV contrast. This study was performed with techniques to keep radiation doses as low as reasonably achievable (ALARA). Individualized dose reduction techniques using automated exposure control or adjustment of mA and/or kV according to the patient''s size were employed. CLINICAL HISTORY: abdominal pain weight loss >25 pounds COMPARISON: 06/23/2023 FINDINGS: Abdomen: The lung bases are clear. The heart is normal in size. The liver has an unremarkable appearance, without evidence of mass or biliary duct dilatation. . The spleen is unremarkable. No adrenal masses present. The pancreas has an unremarkable appearance. There are several less than 3 mm in size nonobstructing left renal stones present. Enhancement the kidneys are unremarkable in appearance. The aorta is normal in caliber. Mild vascular calcifications are present. There is no free fluid or adenopathy. No mass or abnormal fluid collection is seen. Pelvis: The appendix is normal in appearance. The urinary bladder is unremarkable. No inflammatory process is seen. There is no evidence of mass or adenopathy. There is no evidence of bowel obstruction. Note is made of mild stenosis in the right common iliac artery. IMPRESSION: No evidence of acute intra-abdominal process. Several small than 3 mm in size nonobstructing left renal stones, also seen on the prior CT of June 22. 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 Reviewed, Interpreted and Dictated by Mina Torres III, MD Transcribed by Michelle Richardson Authenticated and [facility]
[2023-08-05] MEDS: IOPAMIDOL-370 (76%);100ML BOTTLE 75 ML IV (15:56)
[2023-08-05] MEDS: SODIUM CHLORIDE 0.9% 10ML SYR (RAD ONLY) 10 ML IV (15:56)
== END 2023-08-05 23:59 | disposition home or self-care (01) ==
LOC: RAD 15:17
PROVIDERS: PCP Family Medicine; Visit Provider Nurse Practitioner
DX: R63.4 Abnormal weight loss; K59.00 Constipation, unspecified; R15.9 Full incontinence of feces; F19.91 Other psychoactive substance use, unspecified, in remission; Z68.1 Body mass index [BMI] 19.9 or less, adult; R10.30 Lower abdominal pain, unspecified
CPT/HCPCS: 74178; Q9967

== ENCOUNTER 2023-08-09 13:18 | Outpatient (CLI) | payer MEDICARE, SELFPAY ==
[2023-08-09 15:15] LABS: Alanine Aminotransferase 17 U/L (12-78); Albumin Level 4.3 g/dl (3.5-5.0); Albumin/Globulin Ratio 1.8 (1.1-1.8); Alkaline Phosphatase 57 U/L (38-126); Amylase 83 U/L (30-110); Anion Gap 13.5 mEq/L (5-15); Aspartate Amino Transferase 27 U/L (17-59); Bilirubin,Total 0.4 mg/dl (0.2-1.3); Blood Urea Nitrogen 9 mg/dl (9-20); Calcium 9.4 mg/dl (8.4-10.2); Carbon Dioxide 29 mmol/L (22.0-30.0); Chloride 100 mmol/L (98-107); Estimated Glomerular Filt Rate 81 ml/min (>60); GFR (African American) 98 ML/MIN (>60); Globulin 2.4 g/dL (1.3-3.2); Glucose 92 mg/dl (74-100); Lipase 105 U/L (23-300); Potassium 4.5 mmoL/L (3.5-5.1); Sodium 138 mmol/L (136-145); Total Protein,Serum 6.7 g/dl (6.3-8.2)
[2023-08-10 11:46] LABS: HIV (1&2) Antibody Rapid NON REACTIVE
[2023-08-11 07:06] LABS: HBsAg Screen Negative (Negative); HCV Ab Non Reactive (Non Reactive); Hep A Ab, IGM Negative (Negative); Hep B Core Ab, IgM Negative (Negative)
== END 2023-08-09 23:59 | disposition home or self-care (01) ==
LOC: LAB 13:19
PROVIDERS: PCP Internal Medicine; Visit Provider Nurse Practitioner
DX: R10.9 Unspecified abdominal pain (principal); R15.9 Full incontinence of feces; K59.00 Constipation, unspecified; R64 Cachexia; F11.93 Opioid use, unspecified with withdrawal; F19.91 Other psychoactive substance use, unspecified, in remission; Z68.1 Body mass index [BMI] 19.9 or less, adult
CPT/HCPCS: 80053; 80074; 82150; 83690

== ENCOUNTER 2023-08-16 11:53 | Emergency (ER) | payer MEDICARE, SELFPAY ==
[2023-08-16] VITALS (9 sets, daily range): BP systolic 87–206; BP diastolic 63–184; PULSE 66–112; RESP 13–19; TEMP 36.7–37.2; O2SAT 96–99; BMI 16.2
--- NOTE | 2023-08-16 12:57 | CT_ITS ---
FINAL REPORT TECHNIQUE: Axial images through the abdomen and pelvis were performed. This study was performed with techniques to keep radiation doses as low as reasonably achievable, (ALARA). Individualized dose reduction techniques using automated exposure control or adjustment of mA and/or kV according to the patient's size were employed. CLINICAL HISTORY: chron abd pain, tenesmus, L flank pain new COMPARISON: 08/05/2023 FINDINGS: Abdomen: No acute density is seen within the lung bases. The gallbladder is unremarkable. Solid abdominal organs are unremarkable. The previously visualized small left renal stones are not appreciated on today's examination with contrast only. No bowel obstruction is present. There is no free air. No fluid collection is seen. There is no adenopathy. Pelvis: The appendix is not well-seen, however there are no secondary signs of inflammatory change in the region of the appendix. No bowel wall thickening is present. There is no free fluid. No pelvic mass is seen. IMPRESSION: Small left renal stones not appreciated on today's examination with contrast only. Appendix not well-visualized, however no secondary signs of inflammatory change are noted in the right lower quadrant. Reviewed, Interpreted and Dictated by Get Song MD Transcribed by Michelle Richardson Authenticated and [facility]
[2023-08-16] MEDS: METHOCARBAMOL 500MG TABLET 1000 MG PO (13:12)
[2023-08-16] MEDS: DICYCLOMINE 10MG CAPSULE 10 MG PO (13:12)
[2023-08-16] MEDS: LACTATED RINGERS 1000ML 1,000 ML 999 ML IV (13:12)
[2023-08-16] MEDS: ONDANSETRON 4MG/2ML VIAL 4 MG IV (13:12)
[2023-08-16] MEDS: ACETAMINOPHEN 1,000MG/100ML VIAL 1000 MG IV (13:12)
[2023-08-16 13:13] LABS: Chloride 103 mmol/L (98-107); Sodium 140 mmol/L (136-145)
[2023-08-16 13:14] LABS: Potassium 3.8 mmoL/L (3.5-5.1)
[2023-08-16 13:16] LABS: Alanine Aminotransferase 27 U/L (12-78); Alkaline Phosphatase 64 U/L (38-126); Anion Gap 12.8 mEq/L (5-15); Aspartate Amino Transferase 39 U/L (17-59); Basophils # 0.1 K/mm3 (0-0.2); Basophils % 1.2 % (0.1-2.0); Bilirubin,Total 0.5 mg/dl (0.2-1.3); Blood Urea Nitrogen 9 mg/dl (9-20); Calcium 9.9 mg/dl (8.4-10.2); Carbon Dioxide 28 mmol/L (22.0-30.0); Creatinine Clearance Estimated 81 mL/min (50-200); Eosinophils # 0.1 K/mm3 (0.0-0.4); Eosinophils % 1.3 % (0.1-12.0); Estimated Glomerular Filt Rate 92 ml/min (>60); GFR (African American) 111 ML/MIN (>60); Glucose 107 mg/dl (74-100); Hematocrit 39.1 % (42.0-52.0); Hemoglobin 12.9 g/dL (14.1-18.0); Lipase 79 U/L (23-300); Lymphocytes # 1.8 K/mm3 (0.7-4.5); Lymphocytes % 37.4 % (10-50); Mean Corpuscular HGB Conc 32.9 g/dL (31.8-35.4); Mean Corpuscular Hemoglobin 32.6 pg (27.0-31.2); Mean Platelet Volume 10.7 fl (7.4-10.4); Monocytes # 0.2 K/mm3 (0.1-1.0); Monocytes % 4.4 % (1.7-9.3); Neutrophils # 2.7 K/mm3 (1.8-7.8); Neutrophils % 55.7 % (37.0-80.0); Platelet Count 144 K/mm3 (142-424); Red Blood Count 3.95 M/mm3 (4.60-6.20); Red Cell Distribution Width 13.8 % (11.5-17.5); White Blood Count 4.9 K/mm3 (4.8-10.8)
[2023-08-16 13:17] LABS: Albumin Level 4.8 g/dl (3.5-5.0); Albumin/Globulin Ratio 1.4 (1.1-1.8); Globulin 3.4 g/dL (1.3-3.2); Total Protein,Serum 8.2 g/dl (6.3-8.2)
--- NOTE | 2023-08-16 13:18 | PC.WOUNDNOTE ---
I rounded on the pt, no new complaints at this time. vss. pt declines any needs at this time.
[2023-08-16 13:23] LABS: Lactic Acid 2.5 mmol/L (0.7-2.1)
--- NOTE | 2023-08-16 13:28 | ED_ITS ---
Discharge Plan Disposition Patient Disposition: Home, Self-Care Prescriptions Prescriptions: New dicyclomine 10 mg capsule 20 mg PO TID Qty: 30 0RF methocarbamol 1,000 mg tablet 1,000 mg PO Q8H Qty: 15 0RF No Action thiamine mononitrate (vit B1) [Vitamin B-1 (mononitrate)] 100 mg tablet 100 mg PO DAILY Movantik 25 mg tablet 25 mg PO DAILY Qty: 30 5RF Rx Instructions: must be taken on empty stomach; no food 1 hr after or 2-3 hrs before dose methadone 62 mg PO DAILY mecobalamin (vitamin B12) 2,500 mcg tablet,chewable 2,500 mcg PO .qd Qty: 90 3RF levetiracetam [Keppra] 500 mg tablet 500 mg PO BID Qty: 180 3RF docusate sodium [Colace] 100 mg capsule 100 mg PO DAILY Qty: 30 0RF Referrals Follow up/Referrals: Po Mckeon DO [Primary Care Provider] - See instructions Activity Restrictions/Add. Instructions Additional Instructions/Restrictions: At this time it was felt you are safe to be discharged home. If new or worsening symptoms please do not hesitate to return the emergency department. Please take your medications as prescribed. Please call and schedule appoint with Dr. Heck at gastroenterology and hepatology [facility]. Phone number [phone]. Clinical Impressions Clinical Impression: Back pain, Chronic abdominal pain Instructions Patient Instructions: DI for Acute Abdominal Pain Discharge ED Provider: Theodore Pardo General Adult HPI General Chief complaint: Abdominal Pain Stated complaint: abd pain, left back pain Time Seen by Provider: 08/16/23 12:00 Mode of Arrival: Ambulatory Source of Information: Patient Limitations: No Limitations Description of Symptoms (Recalled from ER Triage Doc. by RN): pt presents to ED with c/o abdominal pain and left sided back pain. symptoms began 3-4 months ago, pt reports that symptoms have gotten worse over the past couple of days History of Present Illness HPI narrative: Patient is a 42-year-old male who presents emergency department for evaluation of abdominal pain and back pain. Patient has had chronic abdominal pain for many months. He has a previous history of opiate abuse, has never injected in his life. 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 He has had severe abdominal pain has been evaluated by multiple doctors and has been largely unsuccessful as to the etiology. He has a pending evaluation with a records management clerk in approximately 3 months which he cannot wait. He has a feeling of needing to have a bowel movement however is largely unable without significant strain. He has tried different laxatives before, last bowel movement yesterday nonbloody. He also has left paraspinal back pain radiating down through his left flank which is worse than his chronic back pain. No other acute complaints at this time. Related Data Home Medications Medication Instructions Recorded Confirmed methadone 62 mg PO DAILY 04/07/23 08/05/23 thiamine mononitrate (vit B1) 100 100 mg PO DAILY 05/10/23 08/05/23 mg tablet (Vitamin B-1 (mononitrate)) Previous Rx's Medication Instructions Recorded levetiracetam 500 mg tablet 500 mg PO BID #180 tabs 05/05/23 (Keppra) mecobalamin (vitamin B12) 2,500 2,500 mcg PO .qd malnutrition #90 05/05/23 mcg chewable tablet tabs docusate sodium 100 mg capsule 100 mg PO DAILY #30 caps 07/09/23 (Colace) naloxegol 25 mg tablet (Movantik) 25 mg PO DAILY OIC #30 tabs 08/05/23 dicyclomine 10 mg capsule 20 mg (2 x 10 mg) PO TID abdominal 08/16/23 spasm #30 caps methocarbamol 1,000 mg tablet 1,000 mg PO Q8H back spasm #15 tabs 08/16/23 Allergies Allergy/AdvReac Type Severity Reaction Status Date / Time promethazine [PROMETHAZINE] Allergy Mild Verified 08/05/23 14:25 [facility] Disclaimer: The information contained in this section may have been updated after the patient was seen, as this information can be updated by other users. Medical History Migraine Hiatal hernia Coronary artery disease Anxiety Seizure Surgical History H/O brain surgery H/O hernia repair Family History Other Cancer Social History Smoking Status: Current every day smoker tobacco type: cigarettes packs per day: 1 second hand exposure: No alcohol intake: never counseling provided: none substance use type: former substance user, marijuana and opiates current occupational status: disabled Travel in the last 8 weeks: None household members: family housing: house current occupational exposures/hazards: No caffeine: Yes ROS Obtained: Yes Systems reviewed as appropriate & no additional complaints except as documented Physical Exam General General appearance: alert, in no apparent distress, cachectic and other Head Head exam: atraumatic and normocephalic Eye Eye exam: Present PERRL and EOMI ENT ENT exam: Present mucous membranes moist Neck Neck exam: Present normal inspection Chest Chest inspection: Present normal inspection and symmetric chest wall rise Respiratory Respiratory exam: Present normal lung sounds bilaterally; Absent respiratory distress Cardiovascular Cardiovascular exam: Present regular rate and normal rhythm Abdominal Exam Abdominal exam: Present soft and tenderness (Diffuse, mild) Extremities Exam Extremities exam: Present normal inspection Back Exam Back exam: Absent tenderness Neurological Exam Neurological exam: Present alert; Absent motor sensory deficit Psychiatric Psychiatric exam: Present normal affect Skin Skin exam: Present warm and dry Medical Decision Making Jh Inquiry Pt receiving controlled substance: No Vital Signs: 08/16/23 11:55 08/16/23 12:29 08/16/23 12:30 Temperature 98.9 F Temperature Source Oral Pulse Rate 101 H 112 H Pulse Rate [Left Radial] 108 H Respiratory Rate 19 Blood Pressure 121/80 115/77 Blood Pressure [Right Arm] 206/184 H Blood Pressure Mean 98 91 Blood Pressure Mean [Right Arm] 191 02 Sat by Pulse Oximetry 98 99 98 Oxygen Delivery Method Room Air Room Air 08/16/23 13:00 08/16/23 13:12 08/16/23 13:43 Temperature Temperature Source Pulse Rate 86 88 78 Pulse Rate [Left Radial] Respiratory Rate Blood Pressure 127/80 111/86 123/74 Blood Pressure [Right Arm] Blood Pressure Mean 87 92 91 Blood Pressure Mean [Right Arm] 02 Sat by Pulse Oximetry 96 98 99 Oxygen Delivery Method 08/16/23 14:00 08/16/23 14:30 Temperature Temperature Source Pulse Rate 77 66 Pulse Rate [Left Radial] Respiratory Rate Blood Pressure 87/63 L 107/76 L Blood Pressure [Right Arm] Blood Pressure Mean 71 86 Blood Pressure Mean [Right Arm] 02 Sat by Pulse Oximetry 96 99 Oxygen Delivery Method Lab Data Lab Results 08/16/23 12:09: WBC 4.9, RBC 3.95 L, Hgb 12.9 L, Hct 39.1 L, MCV 99.0 H, MCH 32.6 H, MCHC 32.9, RDW 13.8, Plt Count 144, MPV 10.7 H, Neut % (Auto) 55.7, Lymph % (Auto) 37.4, [place] % (Auto) 4.4, Eos % (Auto) 1.3, Baso % (Auto) 1.2, Neut # (Auto) 2.7, Lymph # (Auto) 1.8, [place] # (Auto) 0.2, Eos # (Auto) 0.1, Baso # (Auto) 0.1, ESR 12, Sodium 140, Potassium 3.8, Chloride 103, Carbon Dioxide 28, Anion Gap 12.8, BUN 9, Creatinine 0.90, Estimated Creat Clear 81, Estimated GFR 92, Est GFR ( Amer) 111, Glucose 107 H, Lactate 2.5 H, Calcium 9.9, Total Bilirubin 0.5, AST 39, ALT 27, Alkaline Phosphatase 64, C-Reactive Protein < 0.3, Total Protein 8.2, Albumin 4.8, Globulin 3.4 H, Albumin/Globulin Ratio 1.4, Lipase 79 08/16/23 12:13: Urine Color Yellow, Urine Appearance Clear, Urine pH 6.5, Ur Specific [place] <= 1.005, Urine Protein Negative, Urine Glucose (UA) Negative, Urine Ketones Negative, Urine Blood Negative, Urine Nitrate Negative, Urine Bilirubin Negative, Urine Urobilinogen 0.2, Ur Leukocyte Esterase Negative, Urine RBC None, Urine WBC None, Ur Squamous Epith Cells None, Urine Bacteria None 08/16/23 12:09 08/16/23 12:09 Orders (Tests/Meds): ED MEDICATIONS Generic Name Dose Route Start Last Admin Trade Name Freq PRN Reason Stop Dose Admin Sodium Chloride 10 ml 08/16/23 13:34 08/16/23 13:37 Sodium Chloride 0.9% 10ml Syr (Rad Only) IV 09/15/23 13:33 10 ml NEEDED PRN Administration Maintain IV Site Discontinued Medications Generic Name Dose Route Start Last Admin Trade Name [place] PRN Reason Stop Dose Admin Acetaminophen 1,000 mg 08/16/23 12:57 08/16/23 13:12 Acetaminophen 1,000mg/100ml Vial IV 08/16/23 12:58 1,000 mg ONCE ONE Administration Dicyclomine HCl 10 mg 08/16/23 12:57 08/16/23 13:12 Dicyclomine 10mg Capsule PO 08/16/23 12:58 10 mg ONCE ONE Administration Lactated Ringer's 1,000 mls @ 999 mls/hr 08/16/23 12:57 08/16/23 13:12 Lactated Ringer's 1000 Ml Bag IV 08/16/23 13:57 999 mls/hr .Q1H1M ONE Administration Iopamidol 75 ml 08/16/23 13:34 08/16/23 13:36 Iopamidol-370 (76%);100ml Bottle IV 08/16/23 13:35 75 ml ONCE ONE Administration Ketorolac Tromethamine 30 mg 08/16/23 12:57 08/16/23 15:19 Ketorolac 30mg/Ml Vial IV 08/16/23 12:58 Not Given ONCE ONE Methocarbamol 1,000 mg 08/16/23 12:59 08/16/23 13:12 Methocarbamol 500mg Tablet PO 08/16/23 13:00 1,000 mg ONCE ONE Administration Ondansetron HCl 4 mg 08/16/23 12:57 08/16/23 13:12 Ondansetron 4mg/2ml Vial IV 08/16/23 12:58 4 mg ONCE ONE Administration ORDERS Category Date Time Status CT abdomen pelvis w con Stat Cat Scan 08/16/23 12:57 Completed CBC w/Auto Diff [Complete Blood Count Auto Diff] Stat Lab 08/16/23 12:09 Completed CMP [Comprehensive Metabolic Panel] Stat Lab 08/16/23 12:09 Completed CRP [C-Reactive Protein] Stat Lab 08/16/23 12:09 Completed ESR [Erythrocyte Sedimentation Rate] Stat Lab 08/16/23 12:09 Completed Lactic Acid Stat Lab 08/16/23 12:09 Completed Lipase Stat Lab 08/16/23 12:09 Completed UA [Urinalysis and Microscopic] Stat Lab 08/16/23 12:13 Completed Medical Decision Narrative: In summary patient is a 42-year-old male past medical history described above presents emergency department for evaluation abdominal pain and back pain. Patient is hemodynamically stable and appearing in pain upon arrival, afebrile. Differential diagnosis includes abdominal mass, inflammatory bowel disease, ureterolithiasis, acute on chronic pain, constipation mediated pain, among others. Patient is on Keppra and methadone both of which are known to cause constipation. He does not have a consistent bowel regimen to assist him with this although he has tried various before for short amount of time has been unsuccessful. Initial workup will be conducted with hematologic labs, urinalysis, CT abdomen pelvis IV contrast. Initial inventions include multimodal pain control, antiemetic, crystalloid bolus. Initial workup reviewed by me, no leukocytosis, no significant anemia, no JOSÉ or critical electrolyte abnormality, normal lipase, no transaminitis. CT imaging of the abdomen pelvis no acute pathology, no secondary findings of appendicitis no bowel obstruction. Upon repeat evaluation patient had some resolution of symptoms however persistent pain. Urinalysis interpreted by me and not consistent with infection. Patient is appropriate for outpatient management at this time and will be discharged with methocarbamol and Bentyl and will be referred to gastroenterology in [place].. Critical Care Critical Care Time Critical Care Time: No
--- NOTE | 2023-08-16 13:31 | PC.NURSE ---
PT TO RADIOLOGY
[2023-08-16] MEDS: IOPAMIDOL-370 (76%);100ML BOTTLE 75 ML IV (13:36)
[2023-08-16] MEDS: SODIUM CHLORIDE 0.9% 10ML SYR (RAD ONLY) 10 ML IV (13:37)
--- NOTE | 2023-08-16 13:41 | PC.NURSE ---
PT RETURNED FROM CT
[2023-08-16 13:59] LABS: C-Reactive Protein < 0.3 mg/L (0-4)
[2023-08-16 14:08] LABS: Erythrocyte Sedimentation Rate 12 mm/hr (0-15)
[2023-08-16 15:06] LABS: Microscopic, Urine URINE MICROSCOPIC (MICROSCOPIC)
--- NOTE | 2023-08-16 15:22 | PC.NURSE ---
DR SCOTT AT BEDSIDE
[2023-08-16 15:26] LABS: Appearance,Urine CLEAR (Clear); Bilirubin,Urine Negative (Negative); Blood, Urine Negative (Negative); Color,Urine YELLOW (Yellow); Glucose,Urine (UA) Negative (Negative); Ketones,Urine Negative (Negative); Leukocyte Esterase,Urine Negative (Negative); Nitrate,Urine Negative (Negative); PH,Urine 6.5 (5.0-8.5); Protein,Urine Negative (Negative); Specific Gravity, Urine <= 1.005 (1.005-1.030); Urobilinogen,Urine 0.2 EU/dl (0.2)
[2023-08-16 17:05] LABS: Reflex Lactic Add Lactic Reflex
== END 2023-08-16 15:53 | disposition home or self-care (01) ==
PROVIDERS: Emergency Provider Emergency Medicine; PCP Internal Medicine
DX: R10.84 Generalized abdominal pain (principal); M54.59 Other low back pain; R74.02 Elevation of levels of lactic acid dehydrogenase [LDH]; G89.29 Other chronic pain; F17.210 Nicotine dependence, cigarettes, uncomplicated
CPT/HCPCS: 74177; 80053; 81001; 83605; 83690; 85025; 85651; 86140; 96361; 96374; 96375; 99285; J0131; J1885; J2405; J7120; Q9967

== ENCOUNTER 2023-08-25 10:53 | Day surgery (SDC) | payer MEDICARE, SELFPAY ==
[2023-08-24 13:26] VITALS: BMI 17.1
[2023-08-25] MEDS: LACTATED RINGERS 1000ML 1,000 ML 25 ML IV (12:26)
[2023-08-25 12:32] VITALS: BP 115/72; PULSE 69; RESP 18; TEMP 36.3; O2SAT 100
--- NOTE | 2023-08-25 13:49 | P.PNANES_ITS ---
[facility] Disclaimer: The information contained in this section may have been updated after the patient was seen, as this information can be updated by other users. Medical History Migraine Hiatal hernia Coronary artery disease Anxiety Seizure Surgical History H/O brain surgery H/O hernia repair Family History Other Cancer Social History Smoking Status: Current every day smoker tobacco type: cigarettes packs per day: 1 second hand exposure: No alcohol intake: never counseling provided: none substance use type: former substance user, marijuana and opiates current occupational status: disabled Travel in the last 8 weeks: None household members: family housing: house current occupational exposures/hazards: No caffeine: Yes [facility] Anesthesia Checklist Patient Identification Patient Identification: Arm Band and Verbal (Name & ) Structural Data Admitted From: Home Planned Operative Procedure/s: Colonoscopy Consent for Planned Operative Procedure(s) Verified: Yes Verified Documents: Surgical Consent and History and Physical NPO Status Verified Time NPO: 19:00 Chart Verification Results Verified: CBC, BMP, ECG and Chest Xray Additional verifications Patient : No Anesthesia Reactions: No Hx Blood Transfusions: No Blood Transfusion Reaction: No Cardiovascular Assessment Heart Sounds: S1 & S2 Pulse Rhythm: Irregular Peripheral Edema: No Airway Assessment Mallampati Score:: Class II C-Spine Mobility Assessed: Yes (FROM) TMJ Mobility Assessed: Yes Dentition: Poor Dentition (Nothing loose per pt.) Neurological Assessment Level of Consciousness: Awake, Alert, Appropriate and Follows Commands Hx Seizures: Yes (Last one 03/2023. On [facility]) Numbness or tingling in extremities: No Anesthesia Plan Anesthesia Risk discussed: Yes Anesthesia Plan: Verified ASA Class: III Anesthesia Type: MAC
[2023-08-25 13:53] VITALS: O2SAT 100
--- NOTE | 2023-08-25 14:18 | HMH.SCOPE ---
Procedure: Date: 08/25/23 Patient Date of :: 1980 Procedure Performed:: Colonoscopy Indications:: The patient is a 42-year-old who presents for colonoscopy evaluation of weight loss. The patient has a recent CT of the abdomen and pelvis that demonstrated no etiology to weight loss. Performing Provider:: Wong Allen MD Referring Provider:: Po Mckeon DO Sedation:: See RN records Procedure:: After placing the patient in the left lateral decubitus position, the colonoscopy was gently inserted into the rectum and under direct visualization advanced to the cecum which was identified by transillumination in the right lower quadrant, identification of the ileocecal valve, appendiceal orifice, and cecal strap. Color, texture, mucosa, and anatomy of the colon were carefully examined with the scope. Findings:: The quality of the bowel preparation was good. The examined colon appeared normal. The sigmoid colon was somewhat angulated. On retroflexion view of the rectum small internal hemorrhoids were seen. Impression: Normal-appearing colon Recommendations:: Reassuring examination Follow-up with referring provider as previously scheduled Complications:: None Estimated blood obtained (mL): 0 Colonoscopy Component Colonoscopy Component Was a colonoscopy performed during today's procedure?: Yes Recommended follow up colonoscopy of at least 10 years?: Yes
[2023-08-25 14:21] VITALS: BP 101/66; PULSE 65; RESP 12; TEMP 36.3; O2SAT 100
[2023-08-25 14:31] VITALS: BP 106/69; PULSE 63; RESP 14; O2SAT 100
[2023-08-25 14:41] VITALS: BP 108/72; PULSE 61; RESP 16; O2SAT 100
[2023-08-25 14:51] VITALS: BP 116/52; PULSE 64; RESP 16; O2SAT 100
== END 2023-08-25 14:55 | disposition home or self-care (01) ==
PROVIDERS: PCP Internal Medicine; Visit Provider Internal Medicine
PROC: (CPT 45378; principal; 2023-08-25 12:00)
DX: K59.00 Constipation, unspecified (principal); K64.8 Other hemorrhoids; R63.4 Abnormal weight loss; Z68.1 Body mass index [BMI] 19.9 or less, adult
CPT/HCPCS: 45378; J7120

== ENCOUNTER 2023-08-31 16:01 | Outpatient (CLI) | payer MEDICARE, SELFPAY ==
--- NOTE | 2023-08-31 16:02 | MR_ITS ---
FINAL REPORT CLINICAL HISTORY: Lower back pain WORSE ON LEFT SIDE. HX BACK SURGERY 4 YEARS AGO. FINDINGS: Multiplanar MR imaging of the lumbar spine was performed without and with contrast. On the sagittal T2-weighted images, disc degeneration is seen at multiple levels. The vertebral alignment is normal. There is no evidence of fracture. The conus is seen at approximately the L1 level and has an unremarkable appearance. T12-L1: Unremarkable. L1-2: An annular bulge is present. No significant canal stenosis or neuroforaminal narrowing is seen. L2-3: An annular bulge is present. No significant canal stenosis or neuroforaminal narrowing is seen. L3-4: An annular bulge is present. Small vertebral osteophytes are present. There is mild bilateral neural foraminal narrowing. L4-5: An annular bulge is present. A right foraminal disc protrusion is present. Moderate right and mild left neural foraminal narrowing is seen. L5-S1: An annular bulge is present. There is mild facet arthropathy. Moderate bilateral neural foraminal narrowing is seen. On the postcontrast images, contrast-enhancement is seen adjacent to the right side of the thecal sac at L4-5 and the right posterior annulus, consistent with postoperative change. IMPRESSION: Postoperative changes right L4-5 with contrast-enhancing fibrosis adjacent to the right side of the thecal sac. Multilevel annular bulges. Right foraminal L4-5 disc protrusion with moderate right neural foraminal narrowing. Authenticated and [facility]
[2023-08-31] MEDS: GADOTERIDOL INJ 20ML SYRINGE 12 ML IV (17:27)
[2023-08-31] MEDS: SODIUM CHLORIDE 0.9% 10ML SYR (RAD ONLY) 10 ML IV (17:27)
== END 2023-08-31 23:59 | disposition home or self-care (01) ==
LOC: RAD 16:02
PROVIDERS: PCP Internal Medicine; Visit Provider Internal Medicine
DX: M54.50 Low back pain, unspecified (principal)
CPT/HCPCS: 72158; A9576

== ENCOUNTER 2024-04-10 15:15 | Outpatient (CLI) | payer MEDICARE, SELFPAY ==
--- NOTE | 2024-04-10 15:50 | XR_ITS ---
FINAL REPORT CLINICAL HISTORY: pain in elbow FINDINGS: 3 views of the elbow were obtained. There is no acute fracture or dislocation. The joint spaces are intact. There is not soft tissue abnormality. IMPRESSION: No acute fracture Reviewed, Interpreted and Dictated by Get Song MD Transcribed by Alma Joyce Authenticated and . [facility]
[2024-04-17 16:12] LABS: Testosterone, Total, LC/MS 416 ng/dL (.)
== END 2024-04-10 23:59 | disposition home or self-care (01) ==
LOC: RAD 15:17
PROVIDERS: PCP Internal Medicine; Visit Provider Internal Medicine
DX: M25.521 Pain in right elbow (principal); R53.83 Other fatigue
CPT/HCPCS: 73080; 84403

== ENCOUNTER 2024-11-09 14:01 | Outpatient (CLI) | payer MEDICARE, SELFPAY ==
[2024-11-09 19:18] LABS: Hematocrit 35.7 % (42.0-52.0); Hemoglobin 12.1 g/dL (14.1-18.0); Immature Granulocytes % 0.2 %; Mean Corpuscular HGB Conc 33.9 g/dL (31.8-35.4); Mean Corpuscular Hemoglobin 31.3 pg (27.0-31.2); Mean Corpuscular Volume 92.5 fl (80-94); Nucleated Red Blood Cells % 0 %; Platelet Count 142 K/mm3 (142-424); Red Blood Count 3.86 M/mm3 (4.60-6.20); Red Cell Distribution Width-SD 41.8 fL; White Blood Count 4.6 K/mm3 (4.8-10.8)
[2024-11-09 20:14] LABS: Anion Gap 10.4 mEq/L (5-15); Blood Urea Nitrogen 9 mg/dl (9-20); Calcium 9.2 mg/dl (8.4-10.2); Carbon Dioxide 30 mmol/L (22.0-30.0); Chloride 102 mmol/L (98-107); Creatinine,Serum 0.90 mg/dl (0.66-1.25); Estimated Glomerular Filt Rate 91 ml/min (>60); GFR (African American) 110 ML/MIN (>60); Glucose 79 mg/dl (74-100); Potassium 4.4 mmoL/L (3.5-5.1); Sodium 138 mmol/L (136-145)
--- OUTSIDE RECORDS SUMMARY | 2024-11-10 09:24 | XMS_ITS | Clinical Summary ---
Author Organization Healthcare Address [address] [place] [address] Care Team Providers Care Medical Biller Coder Name Role Phone Pcp, No Primary Care Provider Unavailabl e Allergies No known active allergies Medications levETIRAcetam (Keppra) 1000 MG tablet Take 1 tablet (1,000 mg) by mouth 2 (two) times a day. 60 tablet 2 03/12/2023 Active methadone (Dolophine) 10 MG/ML solution Take 6 mL (60 mg) by mouth 1 (one) time each day. 0 03/12/2023 Active Active Problems Problem Noted Date Diagnosed Date Seizure 03/09/2023 Social History Tobacco Use Types Packs/Day Years Used Date Smoking Tobacco: Every Day Cigarettes Tobacco Cessation:Ready to Q uit: Not Asked; Counseling Given: Not Answered Humiliation, Afraid, Rape, and Kick questionnair e Answer Date Recorded Within the last year, have y ou been afraid of your partner or ex-partner? No 03/11/2023 Within the last year, have y ou been humiliated or emotionally abused in other ways by your partner or ex-partner? No Within the last year, have y ou been kicked, hit, slapped, or otherwise physically hurt by your partner or ex-partner? No 03/11/2023 Within the last year, have y ou been raped or forced to have any kind of sexual activity by your partner or ex-partner? No 03/11/2023 Hunger Vital Sign Answer Date Recorded Within the past 12 months, y ou worried that your food would run out before you got the money to buy more. Sometimes true Within the past 12 months, t he food you bought just didn't last and you didn't have money to get more. Sometimes true 12/2023 PRAPARE - Transportation Answer Date Re corded In the past 12 months, has l ack of transportation kept you from medical appointments or from getting medications? No 03/01 In the past 12 months, has l ack of transportation kept you from meetings, work, or from getting things needed for daily living? No 03/11/2023 Housing Stability Vital Sign Answer Sean e Recorded In the last 12 months, was t here a time when you were not able to pay the mortgage or rent on time? Yes 03/11/2023 In the last 12 months, how many places have you lived? 2 03/11/2023 In the last 12 months, was t here a time when you did not have a steady place to sleep or slept in a skilled nursing (including now)? No 03/11/2023 Utilities Answer Date Recorded In the past 12 months has th e electric, gas, oil, or water company threatened to shut off services in your home? No 03/11/2023 Sex and Gender Information Value Date Recorded Sex Assigned at Not on file Legal Sex Male 7:42 PM EDT Gender Identity Not on file Sexual Orientation Not on file Last Filed Vital Signs Vital Sign Reading Time Taken Comments Blood Pressure 107/71 03/12/2023 12:08 PM EST Pulse 78 03/12/2023 12:08 PM EST Temperature 36.9 C (98.4 F) 03/12/2023 12:08 PM EST Respiratory Rate 16 03/12/2023 12:0 8 PM EST Oxygen Saturation 96% 03/12/2023 12: 08 PM EST Inhaled Oxygen Concentration - - Weight 65.2 kg (143 lb 11.8 oz) 03/10/2023 6:00 AM EST Height 188 cm (6' 2 ) 03/09/2023 6:44 AM EST Body Mass Index 18.46 03/09/2023 6:44 AM EST Plan of Treatment Health Maintenance Due Date Last Done Comments [facility]-Depression Screening 1978 [facility] Annual Wellness (AWV) 1978 [facility]-Infant/Child/Adol SDOH Screenings 1978 [facility]-DTaP,Tdap,and Td Vaccine s (2 - Tdap) 05/03/1996 05/02/1996 [facility]- SDOH Screenings 1996 [facility]-Adult SDOH Screenings 1996 [facility]-Hepatitis B Vaccines (1 of 3 - 19+ 3-dose series) 1997 CT Colonography 09/27/2023 Colonoscopy 09/27/2023 FIT-DNA 09/27/2023 FIT 09/27/2023 FOBT 09/27/2023 Sigmoidoscopy 09/27/2023 [facility]-Colorectal Cancer Screening 09/27/2023 [id number] Vaccine (1 - 20 24-25 season) 2024 [facility]-Influenza Vaccine (#1) 2024 [facility]-Zoster Vaccines (1 of 2) 2028 [facility]-HIV Screening Completed 03/09/2023 [facility]-Hepatitis C Screening Completed 03/09/2023 HPV Vaccines Aged Out No longer eligi ble based on patient's age to complete this topic [facility]-HIB Vaccines Aged Out No longer e ligible based on patient's age to complete this topic [facility]-Hepatitis A Vaccines Aged Out No longer eligible based on patient's age to complete this topic [facility]-IPV Vaccines Aged Out No longer e ligible based on patient's age to complete this topic [facility]-Pneumococcal Vaccine: Pediatrics (0 to 5 Years) and At-Risk Patients (6 to 49 Years) Aged Out No long er eligible based on patient's age to complete this topic [facility]-Rotavirus Vaccines Aged Out No lo nger eligible based on patient's age to complete this topic Procedures Procedure Name Priority Date/Time Associated Diagnosis Comments ACUTE HEPATITIS PANEL Routine 03/09/2023 8:17 AM EST HIV 1/2 ANTIBODY/ANTIGEN SCREEN WITH REFLEX TO HIV I/II DIFFERENTIATION Routine 03/09/2023 8:17 AM EST from Last 3 Months or Most Recently Relevant to Health Maintenance Results * HIV 1 & 2 Antibody/Antigen Screen (03/09/2023 8:17 AM EST) HIV 1 & 2 Antibody/Antigen Screen Non Reactive Non Reactive 03/09/2023 9:31 AM EST [facility] Comment:Screening for HIV 1 & 2 antibodies, and P24 antigen is NONREACTIVE. No confirmatory testing is required. Blood Venous blood specimen / Unknown Venipuncture / Unknown 03/09/2023 8:17 AM EST 03/09/2023 8:31 AM EST Mamie Mancilla OPERATIONS CHIEF LAB BLOOD ORDERABLES Sally l Result Performing Organization Address City/[facility]/ZIP Co de Phone Number [facility] [address] [place] [address] * Acute Hepatitis Panel (03/09/2023 8:17 AM EST) [facility] Hepatitis B Surf Antigen Negative Negative 03/09/2023 12:07 PM EST [facility] Hepatitis C Antibody Negative Negative 03/09/2023 12:07 PM EST [facility] Hepatitis A Antibody IgM Negative Negative 03/09/2023 12:07 PM EST [facility] Hepatitis B Core Antibody IgM Negative Negative 03/09/2023 12:07 PM EST [facility] Blood Venous blood specimen / Unknown Venipuncture / Unknown 03/09/2023 8:17 AM EST 03/09/2023 8:31 AM EST Mamie Mancilla OPERATIONS CHIEF LAB BLOOD ORDERABLES Sally l Result Performing Organization Address City/[facility] Co de Phone Number [facility] [address] [place] [address] from Last 3 Months or Most Recently Relevant to Health Maintenance [place] [phone] Advance Directives * Full Code (Latest Code Status on File) Date Activated Date Inactivated Comments 03/09/2023 6:39 AM 03/12/2023 7:10 PM Question Answer Comments Patient has decision-making capacity? Yes Care Teams Medical Biller Coder Relationship Specialty Start Date End Date Pcp, No [address] [place] [address] PCP - General Family Medicine 03/09/22
== END 2024-11-09 23:59 ==
LOC: LAB.DROPOF 11-10 09:21
PROVIDERS: PCP Student in an Organized Health Care Education/Training Program; Visit Provider Student in an Organized Health Care Education/Training Program
DX: R56.9 Unspecified convulsions (principal)
CPT/HCPCS: 80048; 85025